=== PATIENT | male | born 1965 | race Caucasian/White ===

== ENCOUNTER 2020-08-07 09:32 | Outpatient (REF) | payer BC, SELFPAY ==
[2020-08-07 09:56] LABS: COVID-19 Test Negative (Negative)
== END 2020-08-07 09:33 | disposition home or self-care (01) ==
LOC: HO.LAB 09:32
PROVIDERS: PCP Physician Assistant; Visit Provider Internal Medicine
DX: Z20.828 Contact with and (suspected) exposure to other viral communicable diseases (principal)
CPT/HCPCS: 87635

== ENCOUNTER 2020-10-06 18:13 | Emergency (ER) | payer BC, SELFPAY ==
--- NOTE | 2020-10-06 18:29 | ED.ABDPAIN ---
HPI - Abdominal Pain General Chief Complaint: Abdominal Pain Stated Complaint: chest pain Time Seen by Provider: 10/06/20 18:18 Source: patient Mode of arrival: ambulatory Limitations: no limitations History of Present Illness HPI narrative: Patient chronic alcoholic chronic of right upper abdominal pain seen staff design engineer and house calls nurse practitioner in the past for last few days been getting worse no relation to the food patient feels nauseated no vomiting no diarrhea does have some blood in the stool off and on which is also going on for long time patient denied any shortness of breath no abdominal distention no fever or chills no cough no back pain or radiation of pain to the back no urinary symptoms Related Data Home Medications Medication Instructions Recorded Confirmed amlodipine 1 tab PO DAILY 08/27/20 08/27/20 aspirin 1 tab PO DAILY 08/27/20 08/27/20 atorvastatin 1 tab PO DAILY 08/27/20 08/27/20 clopidogrel 1 tab PO DAILY 08/27/20 08/27/20 dicyclomine mg PO 08/27/20 hydroxyzine HCl 1 tab PO TID 08/27/20 08/27/20 lorazepam 1 tab PO BID PRN 08/27/20 08/27/20 metoprolol tartrate 1 tab PO BID 08/27/20 08/27/20 omeprazole 1 cap PO DAILY 08/27/20 08/27/20 Previous Rx's Medication Instructions Recorded clonazepam 1 mg tablet 1 mg PO DAILY PRN 30 Days #30 tab 08/27/20 buspirone 10 mg tablet 10 mg PO BID #60 tab 08/31/20 clonidine HCl 0.2 mg tablet 0.2 mg PO TID #90 tab 09/13/20 lamotrigine 200 mg tablet 200 mg PO BEDTIME #90 tab 09/15/20 sucralfate [Carafate] 1 g PO BID #60 tab 10/06/20 Allergies Allergy/AdvReac Type Severity Reaction Status Date / Time diphenhydramine Allergy Unknown Unknown Verified 09/03/20 10:50 [From Dari] Review of Systems Review of Systems REVIEW OF SYSTEMS: Pertinent positives and negatives are stated above in the history. GEN: no fevers, chills, fatigue HEENT: no nasal congestion, sore throat, ear pain NEURO: no headache, dizziness, focal weakness PULM: no cough, shortness of breath CV: no chest pain, palpitations, LE edema ABD: no vomiting, diarrhea : no dysuria, urgency, frequency SKIN: no rash ROS otherwise negative x 10 Physical Exam Vital Signs: Vital Signs: Last Vital Signs Temp 98.3 F 10/06/20 20:05 Pulse 69 10/06/20 20:05 Resp 95 H 10/06/20 20:05 BP 154/90 H 10/06/20 20:05 Pulse Ox 95 10/06/20 20:05 Body Mass Index 26.6 Appearance: Alert. Oriented X3. No acute distress. Eyes: Pupils equal, round and reactive to light. ENT: Pharynx normal. Neck: Normal inspection. Neck supple. CVS: Normal heart rate and rhythm. Pulses normal. Respiratory: No respiratory distress. Breath sounds normal. Abdomen: Soft and tender right upper quadrant to deep palpation no rebound tenderness or guarding bowel sounds are present no abdominal distension Skin: Skin warm and dry. Normal skin color. Normal skin turgor. Extremities: No lower extremity edema. Good range of movement Neuro: Oriented X 3. No motor deficit. No sensory deficit. Course Course Course Narrative: Patient chronic alcoholic with chronic right upper abdominal and epigastric pain previous ultrasound in 01/12 showed fatty liver patient workup is negative his normal LFTs patient advised to stop drinking and continue Prilosec will add sucralfate for chronic gastritis MDM - Abdominal Pain Medical Records Attestation: I reviewed the patient's medical records. Lab Data Attestation: I reviewed the patient's lab results. Result diagrams: 10/06/20 18:41 10/06/20 18:41 Labs: Lab Results 10/06/20 10/06/20 10/06/20 Range/Units 18:41 18:41 18:41 WBC 6.6 (4.8-10.8) X10*3/uL RBC 4.44 L (4.60-5.80) X10*6/uL Hgb 14.6 (14.0-18.0) g/dl Hct 41.8 L (42-52) % MCV 94.1 (80-98) fL MCH 32.9 (27.0-33.0) pg MCHC 34.9 (31.0-36.0) g/dl RDW 12.2 (11.0-16.0) % Plt Count 247 (160-400) X10*3/uL MPV 8.9 L (9.4-12.4) fL Immature Gran % (Auto) 0.2 (0.0-0.4) % Neut % (Auto) 57.0 (45-73) % Lymph % (Auto) 29.2 (20-40) % [place] % (Auto) 9.3 (2-11) % Eos % (Auto) 3.5 (0-4) % Baso % (Auto) 0.8 (0-2) % Lymph # (Auto) 1.9 (1.2-4.9) X10*3/uL [place] # (Auto) 0.6 (0.1-1.2) X10*3/uL Eos # (Auto) 0.2 (0.0-0.4) X10*3/uL Baso # (Auto) 0.1 (0.0-0.2) X10*3/uL Abs Immat Gran (auto) 0.01 (0.00-0.03) X10*3/uL Absolute Neuts (auto) 3.7 (2.0-8.3) X10*3/uL Absolute Nucleated RBC 0.000 (0.0-0.012) X10*3/uL Nucleated RBC % (auto) 0.0 (0.0-0.2) /100WBC PT 11.7 (10.8-13.0) SEC INR 1.0 (0.9-1.1) Sodium 142 (135-145) mmol/L Potassium 4.0 (3.3-5.1) mmol/l Chloride 108 (96-108) mmol/L Carbon Dioxide 20 L (22-29) mmol/L Anion Gap 18 (12-20) BUN 13 (9-16) mg/dL Creatinine 0.82 (0.5-1.4) mg/dL Estim Creat Clear Calc 99.6 Estimated GFR > 60 Random Glucose 114 (60-115) mg/dL Calcium 8.3 L (8.4-10.2) mg/dL Total Bilirubin 0.3 (0.0-1.0) mg/dL Direct Bilirubin < 0.2 (0.0-0.5) mg/dL AST 37 (5-37) U/L ALT 34 (0-40) U/L Alkaline Phosphatase 79 (39-117) U/L Troponin I High Sens (<3.5-35.0) ng/L Total Protein 7.5 (6.5-8.0) g/dL Albumin 4.4 (3.5-5.0) g/dL Lipase 46 (8-78) U/L 10/06/20 Range/Units 18:41 WBC (4.8-10.8) X10*3/uL RBC (4.60-5.80) X10*6/uL Hgb (14.0-18.0) g/dl Hct (42-52) % MCV (80-98) fL MCH (27.0-33.0) pg MCHC (31.0-36.0) g/dl RDW (11.0-16.0) % Plt Count (160-400) X10*3/uL MPV (9.4-12.4) fL Immature Gran % (Auto) (0.0-0.4) % Neut % (Auto) (45-73) % Lymph % (Auto) (20-40) % [place] % (Auto) (2-11) % Eos % (Auto) (0-4) % Baso % (Auto) (0-2) % Lymph # (Auto) (1.2-4.9) X10*3/uL [place] # (Auto) (0.1-1.2) X10*3/uL Eos # (Auto) (0.0-0.4) X10*3/uL Baso # (Auto) (0.0-0.2) X10*3/uL Abs Immat Gran (auto) (0.00-0.03) X10*3/uL Absolute Neuts (auto) (2.0-8.3) X10*3/uL Absolute Nucleated RBC (0.0-0.012) X10*3/uL Nucleated RBC % (auto) (0.0-0.2) /100WBC PT (10.8-13.0) SEC INR (0.9-1.1) Sodium (135-145) mmol/L Potassium (3.3-5.1) mmol/l Chloride (96-108) mmol/L Carbon Dioxide (22-29) mmol/L Anion Gap (12-20) BUN (9-16) mg/dL Creatinine (0.5-1.4) mg/dL Estim Creat Clear Calc Estimated GFR Random Glucose (60-115) mg/dL Calcium (8.4-10.2) mg/dL Total Bilirubin (0.0-1.0) mg/dL Direct Bilirubin (0.0-0.5) mg/dL AST (5-37) U/L ALT (0-40) U/L Alkaline Phosphatase (39-117) U/L Troponin I High Sens 3.8 (<3.5-35.0) ng/L Total Protein (6.5-8.0) g/dL Albumin (3.5-5.0) g/dL Lipase (8-78) U/L ECG Data Attestation: I personally reviewed and interpreted this ECG as follows: Interpretation: Normal sinus rhythm with ventricular rate of 75 beats per minute normal axis normal intervals no acute ST T wave changes. Impression normal EKG Discharge Plan Discharge Clinical Impression: Alcoholic gastritis Qualifiers: Chronicity: chronic Gastritis bleeding: without bleeding Qualified Code(s): K29.20 - Alcoholic gastritis without bleeding Patient Disposition: Home, Self-Care Instructions: Gastritis (ED) Additional Instructions: Stop drinking alcohol. Take medications as prescribed. Follow-up with staff design engineer Prescriptions: New sucralfate [Carafate] 1 gram tablet 1 g PO BID Qty: 60 RF: 0 No Action clonazepam 1 mg tablet 1 mg PO DAILY PRN (Reason: anxiety) 30 Days Qty: 30 RF: 1 buspirone 10 mg tablet 10 mg PO BID Qty: 60 RF: 2 clonidine HCl 0.2 mg tablet 0.2 mg PO TID Qty: 90 RF: 0 lamotrigine 200 mg tablet 200 mg PO BEDTIME Qty: 90 RF: 0 atorvastatin 80 mg tablet 1 tab PO DAILY RF: 0 hydroxyzine HCl 50 mg tablet 1 tab PO TID RF: 0 clopidogrel 75 mg tablet 1 tab PO DAILY RF: 0 amlodipine 5 mg tablet 1 tab PO DAILY RF: 0 omeprazole 40 mg capsule,delayed release(DR/EC) 1 cap PO DAILY RF: 0 aspirin 81 mg tablet,delayed release (DR/EC) 1 tab PO DAILY RF: 0 lorazepam 0.5 mg tablet 1 tab PO BID PRN (Reason: Anxiety) RF: 0 dicyclomine 20 mg tablet PO RF: 0 metoprolol tartrate 25 mg tablet 1 tab PO BID RF: 0 Interventions: ED Discharge Assessment Last Done: 10/06/20 20:04 [facility] Past Medical History Medical History Alcohol abuse Anxiety CAD (coronary artery disease) Dyslipidemia Hiatal hernia Hypertension Insomnia PUD (peptic ulcer disease) STEMI (ST elevation myocardial infarction) Surgical History H/O heart artery stent History of esophagogastroduodenoscopy (EGD) Hx of colonoscopy Family History Family History Father Medical history unknown Mother No problems noted. Social History Social History Alcohol intake: current Alcohol intake frequency: 3 or more drinks per day Alcohol type: beer Smoking Status: Never smoker Smoked in Last 30 Days: No Use of substances other than those prescribed or required for medical reasons: No Advance Directives: No Advance Directives Information Provided: No
[2020-10-06 18:30] VITALS: BP 137/84; PULSE 94; RESP 18; TEMP 37.2; O2SAT 96; BMI 26.6
--- NOTE | 2020-10-06 18:31 | ECG_ITS ---
Test Reason : ABDOMINAL PAIN Blood Pressure : / mmHG Vent. Rate : 075 BPM Atrial Rate : 075 BPM P-R Int : 150 ms QRS Dur : 096 ms QT Int : 390 ms P-R-T Axes : 017 013 -01 degrees QTc Int : 435 ms Normal sinus rhythm Normal ECG When compared with ECG of 19-MAY-2020 03:24, No significant change was found Referred By: Robby Linton Electronically Signed By:MARLYS GALLEGO
--- NOTE | 2020-10-06 18:31 | XR_ITS ---
EXAMINATION: XR CHEST CLINICAL INFORMATION: Chest pain. COMPARISON: Most recent chest radiograph dated 05/19/2020. TECHNIQUE: Frontal view of the chest was obtained. FINDINGS: The lungs are clear. The cardiomediastinal silhouette is normal in size. There is no pleural effusion or pneumothorax. No acute osseous abnormality. XR/XR chest 1V IMPRESSION: No acute cardiopulmonary findings.
[2020-10-06] MEDS: 0.9 % Sodium Chloride 1,000 ML 999 ML IVCONT (18:45)
[2020-10-06] MEDS: ondansetron HCL 4 MG/2 ML VIAL IVPUSH (18:45)
[2020-10-06] MEDS: Morphine Sulfate 4 MG/ML CARTRIDGE IVPUSH (18:45)
[2020-10-06 18:47] LABS: Basophils Absolute Auto 0.1 X10*3/uL (0.0-0.2); Basophils Percent Auto 0.8 % (0-2); Eosinophils Absolute Auto 0.2 X10*3/uL (0.0-0.4); Eosinophils Percent Auto 3.5 % (0-4); Hematocrit 41.8 % (42-52); Hemoglobin 14.6 g/dl (14.0-18.0); Imm Gran Abs Auto 0.01 X10*3/uL (0.00-0.03); Imm Gran Pct Auto 0.2 % (0.0-0.4); Lymphocytes Absolute Auto 1.9 X10*3/uL (1.2-4.9); Lymphocytes Percent Auto 29.2 % (20-40); MANUAL DIFF FLAG NO; Mean Corpuscular HGB Conc 34.9 g/dl (31.0-36.0); Mean Corpuscular Hemoglobin 32.9 pg (27.0-33.0); Mean Corpuscular Volume 94.1 fL (80-98); Mean Platelet Volume 8.9 fL (9.4-12.4); Monocytes Absolute Auto 0.6 X10*3/uL (0.1-1.2); Monocytes Percent Auto 9.3 % (2-11); Neutrophils Absolute Auto 3.7 X10*3/uL (2.0-8.3); Platelet Count 247 X10*3/uL (160-400); Red Blood Count 4.44 X10*6/uL (4.60-5.80); Red Cell Distribution Width 12.2 % (11.0-16.0); White Blood Count 6.6 X10*3/uL (4.8-10.8)
[2020-10-06 19:02] LABS: Prothrombin Time 11.7 SEC (10.8-13.0)
[2020-10-06 19:24] LABS: Troponin-I High Sensitivity 3.8 ng/L (<3.5-35.0)
[2020-10-06 19:27] LABS: Alanine Aminotransferase 34 U/L (0-40); Albumin Level 4.4 g/dL (3.5-5.0); Alkaline Phosphatase 79 U/L (39-117); Anion Gap 18 (12-20); Aspartate Amino Transferase 37 U/L (5-37); Bilirubin Direct < 0.2 mg/dL (0.0-0.5); Bilirubin Total 0.3 mg/dL (0.0-1.0); Blood Urea Nitrogen 13 mg/dL (9-16); Calcium 8.3 mg/dL (8.4-10.2); Carbon Dioxide 20 mmol/L (22-29); Chloride 108 mmol/L (96-108); Creatinine Clr Calc Pharmacy 99.6; Estimated Glomerular Filt Rate > 60; Glucose Random 114 mg/dL (60-115); Lipase 46 U/L (8-78); Sodium 142 mmol/L (135-145); Total Protein 7.5 g/dL (6.5-8.0)
[2020-10-06 20:05] VITALS: BP 154/90; PULSE 69; RESP 95; TEMP 36.8; O2SAT 95
[2020-10-06] MEDS: LORazepam 1 MG TABLET 2 MG PO (20:17)
== END 2020-10-06 20:20 | disposition home or self-care (01) ==
PROVIDERS: Emergency Provider Internal Medicine; PCP Physician Assistant
DX: K29.20 Alcoholic gastritis without bleeding (principal); F10.10 Alcohol abuse, uncomplicated; I10 Essential (primary) hypertension
CPT/HCPCS: 36415; 71045; 80048; 80076; 83690; 84484; 85025; 85610; 93005; 96361; 96374; 96375; 99284; J2270; J2405

== ENCOUNTER 2020-10-31 07:38 | Day surgery (SDC) | payer BC, SELFPAY ==
[2020-08-27 11:18] VITALS: BMI 25.5
[2020-10-23 15:49] VITALS: BMI 26.6
--- NOTE | 2020-10-30 09:55 | HO.ANESPROP2 ---
Documented by User: Kisha Frederick 10/30/20 10:10 HPI - Anesthesia Eval Consult details Narrative: 55yo M for Colonoscopy significant ETOH PMFSH Past Medical History Medical History Alcohol abuse Anxiety CAD (coronary artery disease) Dyslipidemia Hiatal hernia Hypertension Insomnia PUD (peptic ulcer disease) STEMI (ST elevation myocardial infarction) Family History Family History Father Medical history unknown Mother No problems noted. Surgical History Surgical History H/O heart artery stent History of esophagogastroduodenoscopy (EGD) Hx of colonoscopy Social History Social History Are you a primary rn primary care to a significant other at home: No Alcohol intake: current Alcohol intake frequency: 3 or more drinks per day Alcohol type: beer Smoking Status: Former smoker Smoking Quit Date: > 10 yrs ago Use of substances other than those prescribed or required for medical reasons: No Advance Directives: No Advance Directives Information Provided: No Advance Directives on File: No Recently lost weight without trying: No Meds Allergies Allergy/AdvReac Type Severity Reaction Status Date / Time diphenhydramine Allergy Unknown Unknown Verified 09/03/20 10:50 [facility] Home Medications Medication Instructions Recorded Confirmed Type amlodipine 1 tab PO DAILY 08/27/20 08/27/20 History aspirin 1 tab PO DAILY 08/27/20 08/27/20 History dicyclomine mg PO 08/27/20 History hydroxyzine HCl 1 tab PO TID 08/27/20 08/27/20 History lorazepam 1 tab PO BID PRN 08/27/20 08/27/20 History metoprolol tartrate 1 tab PO BID 08/27/20 08/27/20 History Exam Exam Date and Time: October 30, 2020 0955 Height,Weight and Vital Signs: Height 5 ft 8 in Weight 79.379 kg Pertinent Lab Results Pertinent Lab Results: Laboratory Tests 10/06/20 10/06/20 18:41 18:41 WBC 6.6 Hgb 14.6 Hct 41.8 L Plt Count 247 Sodium 142 Potassium 4.0 Chloride 108 Carbon Dioxide 20 L BUN 13 Creatinine 0.82 Narrative Narrative: EKG 04/2020: NSR @ 77, Inferior infarct, old ECHO 05/2020: EF 60-65%, mild thickening of anterior mitral leaflet, no change from prev Assessment and Plan Assessment Anesthesia Assessment: Chart Reviewed Documented by User: Vicenta Vogt 10/31/20 08:02 [facility] Past Medical History Medical History Alcohol abuse Anxiety CAD (coronary artery disease) Dyslipidemia Hiatal hernia Hypertension Insomnia PUD (peptic ulcer disease) STEMI (ST elevation myocardial infarction) Family History Family History Father Medical history unknown Mother No problems noted. Surgical History Surgical History H/O heart artery stent History of esophagogastroduodenoscopy (EGD) Hx of colonoscopy Social History Social History Are you a primary rn primary care to a significant other at home: No Alcohol intake: current Alcohol intake frequency: 3 or more drinks per day Alcohol type: beer Smoking Status: Former smoker Smoking Quit Date: > 10 yrs ago Use of substances other than those prescribed or required for medical reasons: No Advance Directives: No Advance Directives Information Provided: No Advance Directives on File: No Recently lost weight without trying: No Meds Allergies Allergy/AdvReac Type Severity Reaction Status Date / Time diphenhydramine Allergy Unknown Unknown Verified 09/03/20 10:50 [From Dari] Home Medications Medication Instructions Recorded Confirmed Type amlodipine 1 tab PO DAILY 08/27/20 08/27/20 History aspirin 1 tab PO DAILY 08/27/20 08/27/20 History dicyclomine mg PO 08/27/20 History hydroxyzine HCl 1 tab PO TID 08/27/20 08/27/20 History lorazepam 1 tab PO BID PRN 08/27/20 08/27/20 History metoprolol tartrate 1 tab PO BID 08/27/20 08/27/20 History Exam Airway Mallampati Class: II (Partial cap top left) TM Dist: >3cm Neck ROM: Full Heart: RRR Lungs: CTA BL Assessment and Plan Assessment Anesthesia Assessment: Anesthesia Plan Discussed and Chart Reviewed Final Anesthetic Review NPO: Yes (Sips of water) ASA Class: III Final Preanesthetic Review: Meds/Allgs Chart Reviewed and Consent Obtained/Reviewed Patient Risk: Intermediate Procedure Risk: Intermediate Anesthetic Plan Anesthetic Plan: MAC: Disposition: Standard PACU
[2020-10-31 08:01] VITALS: BP 141/91; PULSE 97; RESP 16; TEMP 36.6; O2SAT 96
[2020-10-31] MEDS: Lactated Ringers 1,000 ML 50 ML IVCONT (08:22)
[2020-10-31 08:29] LABS: Prothrombin Time 11.9 SEC (10.8-13.0)
[2020-10-31 09:19] VITALS: BP 112/69; PULSE 82; RESP 12; TEMP 37.7; O2SAT 94
--- NOTE | 2020-10-31 09:21 | PM.OP ---
Brief Operative Note Date of Service: 10/31/20 Pre-op diagnosis: Screening Post-op diagnosis: other (Colon polyp, Diverticulosis, Internal hemorrhoids) Procedure: Colonoscopy to cecum and TI with biopsy and removal of polyp Surgeon: Jeremiah Bowen Anesthesia: MAC Estimated blood loss (mL): 3.0 Pathology: other (A. Polyp at 50cm) Condition: stable Disposition: PACU
[2020-10-31 09:34] VITALS: BP 107/77; PULSE 81; RESP 18; TEMP 36.8; O2SAT 96
[2020-10-31 09:47] VITALS: BP 120/79; PULSE 81; RESP 18; O2SAT 97
--- NOTE | 2020-10-31 10:09 | OP_ITS ---
SURGEON: Jeremiah Bowen MD INDICATIONS: The patient presents for evaluation of colorectal cancer screening. Full consent has been obtained from him for this, including risks of bleeding and perforation. PREOPERATIVE DIAGNOSIS: Colorectal cancer screening. POSTOPERATIVE DIAGNOSIS: PROCEDURE PERFORMED: ESTIMATED BLOOD LOSS: COMPLICATIONS: ANESTHESIA: Medication used, monitored anesthesia care. ASSISTANTS: SPECIMENS: POSTOPERATIVE DIAGNOSES: Colorectal cancer screening, small colon polyp, sigmoid diverticulosis, internal hemorrhoids. PROCEDURES PERFORMED: Colonoscopy to cecum and terminal ileum with biopsy and removal of polyp. DESCRIPTION OF PROCEDURE: The patient was placed in the left lateral decubitus position. The digital rectal exam revealed no abnormalities. The Olympus video pediatric colonoscope was entered into the rectum and advanced easily to the cecum. Once in the cecum, I did identify normal-appearing cecal pouch with appendiceal orifice and a normal-appearing ileocecal valve. The terminal ileum was cannulated and appeared normal. The scope withdrawn back in the colon. The entire cecum and ileocecal valve appeared normal. The scope was slowly withdrawn assessing all mucosal surfaces carefully. Preparation was excellent. At 50 cm, there was a flat approximately 4 mm polyp, which was biopsied and completely removed with cold biopsy forceps. I did not visualize any other polyps, colitis, or angiodysplasia. There was mild amount of sigmoid diverticulosis. In the rectum, scope was retroflexed visualizing internal hemorrhoids, but no other pathology. The rectal mucosa appeared normal. Scope was straightened and withdrawn from the patient. He tolerated the procedure well and was returned to the recovery area in stable condition. IMPRESSION: 1. Small colon polyp, status post biopsy removal. 2. Diverticulosis. 3. Internal hemorrhoids. PLAN: The results of the biopsies will be checked. If the polyp is a tubular adenoma, I would recommend a followup colonoscopy in 5 years. If it is only hyperplastic, I would recommend a followup colonoscopy in 10 years. He was again advised to avoid alcohol completely. He will otherwise see me on a p.r.n. basis. MD KRISSY Kessler/WAYNE / [phone]
--- NOTE | 2020-10-31 10:17 | HO.POSTANES ---
Post Anesthesia Evaluation Post Anesthesia Evaluation Vital Signs: Vital Signs Temp Pulse Resp BP Pulse Ox 10/31/20 09:47 98.3 F 81 18 120/79 97 10/31/20 09:34 98.3 F 81 18 107/77 96 10/31/20 09:19 100 F 82 12 112/69 94 10/31/20 08:01 97.8 F 97 16 141/91 H 96 Anesthesia: Monitored Mental Status: Awake Pain Control: Satisfactory Nausea/Vomiting: None Hydration: Adequate Anesthesia-Related Issues: No Anes. Related Issues
== END 2020-10-31 10:14 | disposition home or self-care (01) ==
PROVIDERS: PCP Physician Assistant; Visit Provider Internal Medicine
PROC: 0DJD8ZZ Inspection of Lower Intestinal Tract, Via Natural or Artificial Opening Endoscopic (ICD-10-PCS; CPT 45378; principal; 2020-10-31 08:30)
DX: Z12.11 Encounter for screening for malignant neoplasm of colon (principal); D12.5 Benign neoplasm of sigmoid colon; K57.30 Diverticulosis of large intestine without perforation or abscess without bleeding; K64.8 Other hemorrhoids; I25.10 Atherosclerotic heart disease of native coronary artery without angina pectoris; I10 Essential (primary) hypertension; F10.10 Alcohol abuse, uncomplicated; K27.9 Peptic ulcer, site unspecified, unspecified as acute or chronic, without hemorrhage or perforation; Z87.891 Personal history of nicotine dependence; Z79.82 Long term (current) use of aspirin; Z79.899 Other long term (current) drug therapy
CPT/HCPCS: 45380; 36415; 85610; 88305; J2250

== ENCOUNTER 2020-11-12 09:27 | Outpatient (REF) | payer BC, SELFPAY | END 2020-11-12 09:28 | disposition home or self-care (01) | LOC: HO.LAB 09:27 | PROVIDERS: Visit Provider Internal Medicine | DX: Z20.822 Contact with and (suspected) exposure to COVID-19 (principal) | CPT/HCPCS: 36415; C9803; U0003 ==

== ENCOUNTER 2021-02-12 13:20 | Emergency (ER) | payer BC, SELFPAY ==
--- NOTE | ~2021-02-12 | CT_ITS ---
EXAMINATION: CT ABDOMEN AND PELVIS WITH CONTRAST CLINICAL INFORMATION: Weight loss upper abdominal pain COMPARISON: Abdominal ultrasound performed same day. Prior CT September 2016. TECHNIQUE: Multidetector volumetric images were obtained from the superior aspect of the liver through the pubic symphysis following administration 85 mL of Omnipaque 350 intravenous contrast. Sagittal and coronal reformatted images were obtained on the technologist's workstation. Oral contrast: No This CT examination was performed using dose optimization techniques as appropriate, variously including the following: *Automated exposure control *Adjustment of mA and/or kV according to patient size (this includes techniques or standardized protocols for targeted exams where dose is matched to indication/reason for exam; i.e. extremities or head) *Use of iterative reconstruction technique DLP: 527 mGy-cm FINDINGS: LUNG BASES: The visualized lung bases are unremarkable. LIVER, GALLBLADDER, AND BILIARY TREE: Decreased attenuation in the liver mild compatible with mild steatosis unchanged. No intrahepatic or extrahepatic biliary dilatation. The gallbladder is unremarkable with no evidence of radiopaque gallstones, gallbladder wall thickening, or obvious pericholecystic inflammatory changes. PANCREAS: Unremarkable. SPLEEN: Unremarkable. ADRENAL GLANDS: Unremarkable. KIDNEYS AND URETERS: 1.5 cm low-density lesion in the lower pole of the right kidney in the cortex posteriorly unchanged compatible simple cyst. BLADDER: Unremarkable. GASTROINTESTINAL TRACT: The small and large bowel are unremarkable. The appendix is unremarkable. ABDOMINAL WALL: No significant hernia is appreciated. LYMPH NODES: Normal. VASCULAR: Mild scattered arterial calcification similar to prior. PELVIC VISCERA: Unremarkable. OSSEOUS STRUCTURES: Unremarkable. CT/CT abdomen pelvis w con IMPRESSION: No acute abnormality. Stable mild hepatic steatosis. Benign simple cyst right kidney without change.. Mild calcific atherosclerotic disease.
--- NOTE | ~2021-02-12 | XR_ITS ---
EXAMINATION: XR CHEST CLINICAL INFORMATION: Right lower chest pain. COMPARISON: Most recent chest radiograph dated 10/06/2020. TECHNIQUE: Frontal view of the chest was obtained. FINDINGS: The lungs are clear. The cardiomediastinal silhouette is normal in size. There is no pleural effusion or pneumothorax. No acute osseous abnormality. XR/XR chest 1V IMPRESSION: No acute cardiopulmonary findings.
--- NOTE | ~2021-02-12 | US_ITS ---
EXAMINATION: US ABDOMEN LIMITED CLINICAL INFORMATION: Epigastric and right upper quadrant pain. COMPARISON: Ultrasound abdomen limited 01/11/2020 and ultrasound abdomen 08/31/2019 TECHNIQUE: Real-time imaging of the right upper quadrant abdominal viscera. FINDINGS: PANCREAS: The pancreas is normal in size and echogenicity. There is no pancreatic ductal distention or retroperitoneal effusion. LIVER: The liver is within normal size and smooth in contour. There is increased hepatic parenchymal echogenicity consistent with hepatic steatosis. There is no focal hepatic parenchymal lesion. No intrahepatic biliary ductal dilatation. Doppler shows portal flow towards the liver. GALLBLADDER: The patient is tender in the region of the gallbladder. The gallbladder is normal in caliber and shows no stone or sludge or wall thickening. There is no pericholecystic fluid. COMMON BILE DUCT: Borderline enlargement 0.7 cm. No visible ductal calculus. RIGHT KIDNEY: Right kidney measures 11.3 cm in length. There is a nonobstructing calculus around 3 mm interpolar region as noted on prior studies. There is no hydronephrosis or caliectasis. Normal renal parenchymal thickness and echogenicity. FREE FLUID: None. US/US abdomen limited IMPRESSION: 1. No gallstones or gallbladder wall thickening. 2. Common duct 7 mm, borderline enlarged. No intrahepatic ductal dilatation. No visible ductal calculus. 3. Diffuse hepatic steatosis. 4. Nonobstructing right renal calculus similar to prior imaging. No right hydronephrosis.
[2021-02-12 13:53] VITALS: BP 176/111; PULSE 80; RESP 20; TEMP 37.3; O2SAT 97; BMI 26.6
--- NOTE | 2021-02-12 14:04 | ECG_ITS ---
Test Reason : ABDOMINAL PAIN Blood Pressure : / mmHG Vent. Rate : 073 BPM Atrial Rate : 073 BPM P-R Int : 144 ms QRS Dur : 090 ms QT Int : 406 ms P-R-T Axes : 014 -03 -05 degrees QTc Int : 447 ms Normal sinus rhythm Cannot rule out inferior infarct Abnormal ECG When compared with ECG of 06-OCT-2020 19:00, Cannot rule out inferior infarct Referred By: Alessandra Banks Electronically Signed By:Mani Negron
--- NOTE | 2021-02-12 14:05 | ED.GENADULT ---
HPI - General Adult General Chief complaint: Abdominal Pain <BARRINGTON Cruz - Last Filed: 02/12/21 14:07> Stated complaint: RUQ PAIN <BARRINGTON Cruz - Last Filed: 02/12/21 14:07> Time Seen by Provider: 02/12/21 14:04 <BARRINGTON Cruz - Last Filed: 02/12/21 14:07> Source: patient <Lacy Mata DO - Last Filed: 02/12/21 18:21> Mode of arrival: ambulatory <Lacy Mata DO - Last Filed: 02/12/21 18:21> Limitations: no limitations <Lacy Mata DO - Last Filed: 02/12/21 18:21> History of Present Illness HPI narrative: 55 yo male with chronic upper abdominal pain and ETOH gastritis, drinks daily last drink last night, had one bloody stool this AM, c/o pain x 1 month with distention and weight loss <Lacy Mata DO - Last Filed: 02/12/21 18:21> MD complaint: abdominal pain <Lacy Mata DO - Last Filed: 02/12/21 18:21> Onset (ago): month(s) (1) <Lacy Mata DO - Last Filed: 02/12/21 18:21> Location: abdomen <Lacy Mata DO - Last Filed: 02/12/21 18:21> Severity: moderate <Lacy Mata DO - Last Filed: 02/12/21 18:21> Quality: dull <Lacy Mata DO - Last Filed: 02/12/21 18:21> Pain Consistency: intermittent <Lacy Mata DO - Last Filed: 02/12/21 18:21> Relieving factors: none <Lacy Mata DO - Last Filed: 02/12/21 18:21> Exacerbating factors: none <Lacy Mata DO - Last Filed: 02/12/21 18:21> Associated symptoms: loss of appetite, malaise and other (one episode of brb per rectum this AM) <Lacy Mata DO - Last Filed: 02/12/21 18:21> Treatments prior to arrival: none <Lacy Mata DO - Last Filed: 02/12/21 18:21> Related Data Home medications: Home Medications Medication Instructions Recorded Confirmed amlodipine 1 tab PO DAILY 08/27/20 01/11/21 dicyclomine mg PO 08/27/20 01/11/21 hydroxyzine HCl 1 tab PO TID 08/27/20 01/11/21 lorazepam 1 tab PO BID PRN 08/27/20 01/11/21 Previous Rx's Medication Instructions Recorded sucralfate [Carafate] 1 g PO BID #60 tab 10/06/20 atorvastatin 80 mg tablet 80 mg PO DAILY #30 tab 10/11/20 omeprazole 40 mg capsule,delayed 40 mg PO DAILY #90 cap 10/14/20 release azithromycin 250 mg tablet 250 mg PO DAILY 5 Days #6 tab 11/12/20 dextromethorphan-guaifenesin 30 1 tab PO Q12H PRN 10 Days #20 tab 11/12/20 mg-600 mg tablet extended oouodol02 hr metoprolol tartrate 25 mg tablet 12.5 mg PO BID #60 tab 12/04/20 buspirone 10 mg tablet 10 mg PO BID #60 tab 12/21/20 lamotrigine 200 mg tablet 200 mg PO BEDTIME #90 tab 12/26/20 clonazepam 1 mg tablet 1 mg PO DAILY 30 Days #30 tab 12/27/20 clonidine HCl 0.2 mg tablet 0.2 mg PO TID #90 tab 12/27/20 aspirin 81 mg tablet,delayed 81 mg PO DAILY 90 Days #90 tab 01/09/21 release acetaminophen 300 mg-codeine 30 mg 1 tab PO Q8H 5 Days #15 tab 01/10/21 tablet naproxen 500 mg tablet 500 mg PO BID 7 Days #14 tab 01/10/21 ondansetron 4 mg PO Q8H PRN #20 tab 02/12/21 sucralfate [Carafate] 10 ml PO QID 7 Days #280 ml 02/12/21 <BARRINGTON Cruz - Last Filed: 02/12/21 14:07> Allergies/adverse reactions: Allergies Allergy/AdvReac Type Severity Reaction Status Date / Time diphenhydramine Allergy Unknown Unknown Verified 01/11/21 16:38 [From [facility]] <BARRINGTON Cruz - Last Filed: 02/12/21 14:07> Review of Systems Review of Systems: Constitutional : No Weight loss, No Fever, No Chills ENT/Mouth : No sore throat, No Rhinorrhea Eyes: No Swelling, No Redness Cardiovascular : No Chest Pain, No SOB, NoEdema Respiratory : No Cough, No Sputum, No Wheezing Gastrointestinal : Positive Nausea, no Vomiting, no Diarrhea, positive abdominal Pain, pos Hematochezia, No Melena Genitourinary : No Dysuria, No Urinary Frequency, No Hematuria, No Urgency Musculoskeletal : No joint pain, No Myalgias, No Joint Swelling Skin : No Skin Lesions, No rash Neuro : No Weakness, No Numbness, No Dizziness, No Headache Psych : No Anxiety/Panic, No Depression Heme/Lymph: No Bruising, No Lymphadenopathy Endocrine : No Polyuria, No Polydipsia All other systems reviewed and are negative. <Lacy Mata DO - Last Filed: 02/12/21 18:21> [facility] Past Medical History Attestation statement: The following information was validated with the patient. <Lacy Mata DO - Last Filed: 02/12/21 18:21> Medical History: Medical History Alcohol abuse Anxiety Bronchitis CAD (coronary artery disease) COVID-19 ruled out Dyslipidemia Hiatal hernia Hypertension Insomnia PUD (peptic ulcer disease) STEMI (ST elevation myocardial infarction) <BARRINGTON Cruz - Last Filed: 02/12/21 14:07> Surgical History: Surgical History H/O heart artery stent History of esophagogastroduodenoscopy (EGD) Hx of colonoscopy <BARRINGTON Cruz - Last Filed: 02/12/21 14:07> Family History Family History: Family History Father Medical history unknown Mother No problems noted. <BARRINGTON Cruz - Last Filed: 02/12/21 14:07> Social History Social History: Social History Alcohol intake: current Alcohol intake frequency: 3 or more drinks per day Alcohol type: beer Smoking Status: Current every day smoker Use of substances other than those prescribed or required for medical reasons: Unknown Advance Directives: No Advance Directives Information Provided: Yes <BARRINGTON Cruz - Last Filed: 02/12/21 14:07> Physical Exam Vital Signs: Vital Signs: Last Vital Signs Temp 99.2 F 02/12/21 13:53 Pulse 86 02/12/21 17:35 Resp 18 02/12/21 17:35 BP 154/87 H 02/12/21 17:35 Pulse Ox 100 02/12/21 17:35 Body Mass Index 26.6 <BARRINGTON Cruz - Last Filed: 02/12/21 14:07> Vital Signs: Last Vital Signs Temp 99.2 F 02/12/21 13:53 Pulse 86 02/12/21 17:35 Resp 18 02/12/21 17:35 BP 154/87 H 02/12/21 17:35 Pulse Ox 100 02/12/21 17:35 Body Mass Index 26.6 <Lacy Mata DO - Last Filed: 02/12/21 18:21> Appearance: Alert. Oriented X3. No acute distress. Anxious Eyes: Pupils equal, round and reactive to light. ENT: Pharynx normal. Neck: Normal inspection. Neck supple. CVS: Normal heart rate and rhythm. Pulses normal. Respiratory: No respiratory distress. Breath sounds normal. Abdomen: Soft and mild epigastric RUQ pain no rebound or guarding Skin: Skin warm and dry. Normal skin color. Normal skin turgor. Extremities: No lower extremity edema. No calf ttp Neuro: Oriented X 3. No motor deficit. No sensory deficit. Tremors <Lacy Mata DO - Last Filed: 02/12/21 18:21> Course Course Course Narrative: Rapid medical exam: 55 y/o male with history of daily ETOH abuse (6-8 beers), hx gastritis, fatty liver, hx colonic polys s/p removal, hx CAD s/p stent, anxiety who presents to ED from [facility] for evaluation of intermittent RUQ pain & nausea for the last 1 month. Also reports abdominal distention and bloody BM's today - BRBRPR x2. No dizziness or chest pain. No jaundice on exam. Not on anticoagluation. Will let lab workup, EKG, CXR and RUQ U/S for further assessment. Plan per provider in the Main ED. <BARRINGTON Cruz - Last Filed: 02/12/21 14:07> no further bleeding labs at baseline, CT scan negative stable for outpatient GI follow up <Lacy Mata DO - Last Filed: 02/12/21 18:21> Medical Decision Making MDM Narrative Medical decision making narrative: 55 yo male with ETOH, gastritis, anxiety here with upper abdominal pain RUQ in nature x 1 month worsening c/o weight loss, one episode of brb - will need labs, CT scan, H/H, start ativan, possible mass vs stable GIB <Lacy Mata DO - Last Filed: 02/12/21 18:21> Lab Data Result diagrams: : 02/12/21 14:56 02/12/21 14:56 <BARRINGTON Cruz - Last Filed: 02/12/21 14:07> Labs: Lab Results 02/12/21 02/12/21 02/12/21 Range/Units 14:56 14:56 14:56 WBC 6.0 (4.8-10.8) X10*3/uL RBC 5.02 (4.60-5.80) X10*6/uL Hgb 16.0 (14.0-18.0) g/dl Hct 46.5 (42-52) % MCV 92.6 (80-98) fL MCH 31.9 (27.0-33.0) pg MCHC 34.4 (31.0-36.0) g/dl RDW 11.9 (11.0-16.0) % Plt Count 227 (160-400) X10*3/uL MPV 8.8 L (9.4-12.4) fL Immature Gran % (Auto) 0.2 (0.0-0.4) % Neut % (Auto) 61.2 (45-73) % Lymph % (Auto) 26.1 (20-40) % [place] % (Auto) 9.2 (2-11) % Eos % (Auto) 2.5 (0-4) % Baso % (Auto) 0.8 (0-2) % Lymph # (Auto) 1.6 (1.2-4.9) X10*3/uL [place] # (Auto) 0.6 (0.1-1.2) X10*3/uL Eos # (Auto) 0.2 (0.0-0.4) X10*3/uL Baso # (Auto) 0.1 (0.0-0.2) X10*3/uL Abs Immat Gran (auto) 0.01 (0.00-0.03) X10*3/uL Absolute Neuts (auto) 3.7 (2.0-8.3) X10*3/uL Absolute Nucleated RBC 0.000 (0.0-0.012) X10*3/uL Nucleated RBC % (auto) 0.0 (0.0-0.2) /100WBC Hold Blue Top SEE NOTE Sodium 141 (135-145) mmol/L Potassium 4.1 (3.3-5.1) mmol/L Chloride 105 (96-108) mmol/L Carbon Dioxide 23 (22-29) mmol/L Anion Gap 17 (12-20) BUN 14 (9-16) mg/dL Creatinine 0.96 (0.5-1.4) mg/dL Estim Creat Clear Calc 82.2 Estimated GFR > 60 Random Glucose 98 (60-115) mg/dL Calcium 9.3 D (8.4-10.2) mg/dL Magnesium 2.5 (1.6-2.6) mg/dL Total Bilirubin 1.4 H (0.0-1.0) mg/dL Direct Bilirubin 0.4 (0.0-0.5) mg/dL AST 63 H (5-37) U/L ALT 63 H (0-40) U/L Alkaline Phosphatase 94 (39-117) U/L Troponin I High Sens (<3.5-35.0) ng/L Total Protein 7.9 (6.5-8.0) g/dL Albumin 4.9 (3.5-5.0) g/dL Lipase 26 (8-78) U/L Urine Color Urine Appearance Urine pH (5.0-8.0) Ur Specific [place] (1.005-1.025) Urine Protein (NEG-TRACE) MG/DL Urine Glucose (UA) (NEG) MG/DL Urine Ketones (NEG) MG/DL Urine Blood (NEG) Urine Nitrite (NEG) Ur Leukocyte Esterase (NEG) Urine Opiates Screen (Not Detect) Ur Barbiturates Screen (Not Detect) Ur Phencyclidine Scrn (Not Detect) Ur Amphetamines Screen (Not Detect) U Benzodiazepines Scrn (Not Detect) Urine Cocaine Screen (Not Detect) U Marijuana (THC) Screen (Not Detect) Ethyl Alcohol mg/dL 02/12/21 02/12/21 02/12/21 Range/Units 14:56 14:56 16:48 WBC (4.8-10.8) X10*3/uL RBC (4.60-5.80) X10*6/uL Hgb (14.0-18.0) g/dl Hct (42-52) % MCV (80-98) fL MCH (27.0-33.0) pg MCHC (31.0-36.0) g/dl RDW (11.0-16.0) % Plt Count (160-400) X10*3/uL MPV (9.4-12.4) fL Immature Gran % (Auto) (0.0-0.4) % Neut % (Auto) (45-73) % Lymph % (Auto) (20-40) % [place] % (Auto) (2-11) % Eos % (Auto) (0-4) % Baso % (Auto) (0-2) % Lymph # (Auto) (1.2-4.9) X10*3/uL [place] # (Auto) (0.1-1.2) X10*3/uL Eos # (Auto) (0.0-0.4) X10*3/uL Baso # (Auto) (0.0-0.2) X10*3/uL Abs Immat Gran (auto) (0.00-0.03) X10*3/uL Absolute Neuts (auto) (2.0-8.3) X10*3/uL Absolute Nucleated RBC (0.0-0.012) X10*3/uL Nucleated RBC % (auto) (0.0-0.2) /100WBC Hold Blue Top Sodium (135-145) mmol/L Potassium (3.3-5.1) mmol/L Chloride (96-108) mmol/L Carbon Dioxide (22-29) mmol/L Anion Gap (12-20) BUN (9-16) mg/dL Creatinine (0.5-1.4) mg/dL Estim Creat Clear Calc Estimated GFR Random Glucose (60-115) mg/dL Calcium (8.4-10.2) mg/dL Magnesium (1.6-2.6) mg/dL Total Bilirubin (0.0-1.0) mg/dL Direct Bilirubin (0.0-0.5) mg/dL AST (5-37) U/L ALT (0-40) U/L Alkaline Phosphatase (39-117) U/L Troponin I High Sens < 3.5 (<3.5-35.0) ng/L Total Protein (6.5-8.0) g/dL Albumin (3.5-5.0) g/dL Lipase (8-78) U/L Urine Color YELLOW Urine Appearance CLEAR Urine pH 6.0 (5.0-8.0) Ur Specific [place] 1.025 (1.005-1.025) Urine Protein TRACE (NEG-TRACE) MG/DL Urine Glucose (UA) NEG (NEG) MG/DL Urine Ketones NEG (NEG) MG/DL Urine Blood NEG (NEG) Urine Nitrite NEG (NEG) Ur Leukocyte Esterase NEG (NEG) Urine Opiates Screen (Not Detect) Ur Barbiturates Screen (Not Detect) Ur Phencyclidine Scrn (Not Detect) Ur Amphetamines Screen (Not Detect) U Benzodiazepines Scrn (Not Detect) Urine Cocaine Screen (Not Detect) U Marijuana (THC) Screen (Not Detect) Ethyl Alcohol < 10 mg/dL 02/12/21 Range/Units 16:48 WBC (4.8-10.8) X10*3/uL RBC (4.60-5.80) X10*6/uL Hgb (14.0-18.0) g/dl Hct (42-52) % MCV (80-98) fL MCH (27.0-33.0) pg MCHC (31.0-36.0) g/dl RDW (11.0-16.0) % Plt Count (160-400) X10*3/uL MPV (9.4-12.4) fL Immature Gran % (Auto) (0.0-0.4) % Neut % (Auto) (45-73) % Lymph % (Auto) (20-40) % [place] % (Auto) (2-11) % Eos % (Auto) (0-4) % Baso % (Auto) (0-2) % Lymph # (Auto) (1.2-4.9) X10*3/uL [place] # (Auto) (0.1-1.2) X10*3/uL Eos # (Auto) (0.0-0.4) X10*3/uL Baso # (Auto) (0.0-0.2) X10*3/uL Abs Immat Gran (auto) (0.00-0.03) X10*3/uL Absolute Neuts (auto) (2.0-8.3) X10*3/uL Absolute Nucleated RBC (0.0-0.012) X10*3/uL Nucleated RBC % (auto) (0.0-0.2) /100WBC Hold Blue Top Sodium (135-145) mmol/L Potassium (3.3-5.1) mmol/L Chloride (96-108) mmol/L Carbon Dioxide (22-29) mmol/L Anion Gap (12-20) BUN (9-16) mg/dL Creatinine (0.5-1.4) mg/dL Estim Creat Clear Calc Estimated GFR Random Glucose (60-115) mg/dL Calcium (8.4-10.2) mg/dL Magnesium (1.6-2.6) mg/dL Total Bilirubin (0.0-1.0) mg/dL Direct Bilirubin (0.0-0.5) mg/dL AST (5-37) U/L ALT (0-40) U/L Alkaline Phosphatase (39-117) U/L Troponin I High Sens (<3.5-35.0) ng/L Total Protein (6.5-8.0) g/dL Albumin (3.5-5.0) g/dL Lipase (8-78) U/L Urine Color Urine Appearance Urine pH (5.0-8.0) Ur Specific [place] (1.005-1.025) Urine Protein (NEG-TRACE) MG/DL Urine Glucose (UA) (NEG) MG/DL Urine Ketones (NEG) MG/DL Urine Blood (NEG) Urine Nitrite (NEG) Ur Leukocyte Esterase (NEG) Urine Opiates Screen Not Detected (Not Detect) Ur Barbiturates Screen Not Detected (Not Detect) Ur Phencyclidine Scrn Not Detected (Not Detect) Ur Amphetamines Screen Not Detected (Not Detect) U Benzodiazepines Scrn Not Detected (Not Detect) Urine Cocaine Screen Not Detected (Not Detect) U Marijuana (THC) Screen Not Detected (Not Detect) Ethyl Alcohol mg/dL <BARRINGTON Cruz - Last Filed: 02/12/21 14:07> Lab Results 02/12/21 02/12/21 02/12/21 Range/Units 14:56 14:56 14:56 WBC 6.0 (4.8-10.8) X10*3/uL RBC 5.02 (4.60-5.80) X10*6/uL Hgb 16.0 (14.0-18.0) g/dl Hct 46.5 (42-52) % MCV 92.6 (80-98) fL MCH 31.9 (27.0-33.0) pg MCHC 34.4 (31.0-36.0) g/dl RDW 11.9 (11.0-16.0) % Plt Count 227 (160-400) X10*3/uL MPV 8.8 L (9.4-12.4) fL Immature Gran % (Auto) 0.2 (0.0-0.4) % Neut % (Auto) 61.2 (45-73) % Lymph % (Auto) 26.1 (20-40) % [place] % (Auto) 9.2 (2-11) % Eos % (Auto) 2.5 (0-4) % Baso % (Auto) 0.8 (0-2) % Lymph # (Auto) 1.6 (1.2-4.9) X10*3/uL [place] # (Auto) 0.6 (0.1-1.2) X10*3/uL Eos # (Auto) 0.2 (0.0-0.4) X10*3/uL Baso # (Auto) 0.1 (0.0-0.2) X10*3/uL Abs Immat Gran (auto) 0.01 (0.00-0.03) X10*3/uL Absolute Neuts (auto) 3.7 (2.0-8.3) X10*3/uL Absolute Nucleated RBC 0.000 (0.0-0.012) X10*3/uL Nucleated RBC % (auto) 0.0 (0.0-0.2) /100WBC Hold Blue Top SEE NOTE Sodium 141 (135-145) mmol/L Potassium 4.1 (3.3-5.1) mmol/L Chloride 105 (96-108) mmol/L Carbon Dioxide 23 (22-29) mmol/L Anion Gap 17 (12-20) BUN 14 (9-16) mg/dL Creatinine 0.96 (0.5-1.4) mg/dL Estim Creat Clear Calc 82.2 Estimated GFR > 60 Random Glucose 98 (60-115) mg/dL Calcium 9.3 D (8.4-10.2) mg/dL Magnesium 2.5 (1.6-2.6) mg/dL Total Bilirubin 1.4 H (0.0-1.0) mg/dL Direct Bilirubin 0.4 (0.0-0.5) mg/dL AST 63 H (5-37) U/L ALT 63 H (0-40) U/L Alkaline Phosphatase 94 (39-117) U/L Troponin I High Sens (<3.5-35.0) ng/L Total Protein 7.9 (6.5-8.0) g/dL Albumin 4.9 (3.5-5.0) g/dL Lipase 26 (8-78) U/L Urine Color Urine Appearance Urine pH (5.0-8.0) Ur Specific [place] (1.005-1.025) Urine Protein (NEG-TRACE) MG/DL Urine Glucose (UA) (NEG) MG/DL Urine Ketones (NEG) MG/DL Urine Blood (NEG) Urine Nitrite (NEG) Ur Leukocyte Esterase (NEG) Urine Opiates Screen (Not Detect) Ur Barbiturates Screen (Not Detect) Ur Phencyclidine Scrn (Not Detect) Ur Amphetamines Screen (Not Detect) U Benzodiazepines Scrn (Not Detect) Urine Cocaine Screen (Not Detect) U Marijuana (THC) Screen (Not Detect) Ethyl Alcohol mg/dL 02/12/21 02/12/21 02/12/21 Range/Units 14:56 14:56 16:48 WBC (4.8-10.8) X10*3/uL RBC (4.60-5.80) X10*6/uL Hgb (14.0-18.0) g/dl Hct (42-52) % MCV (80-98) fL MCH (27.0-33.0) pg MCHC (31.0-36.0) g/dl RDW (11.0-16.0) % Plt Count (160-400) X10*3/uL MPV (9.4-12.4) fL Immature Gran % (Auto) (0.0-0.4) % Neut % (Auto) (45-73) % Lymph % (Auto) (20-40) % [place] % (Auto) (2-11) % Eos % (Auto) (0-4) % Baso % (Auto) (0-2) % Lymph # (Auto) (1.2-4.9) X10*3/uL [place] # (Auto) (0.1-1.2) X10*3/uL Eos # (Auto) (0.0-0.4) X10*3/uL Baso # (Auto) (0.0-0.2) X10*3/uL Abs Immat Gran (auto) (0.00-0.03) X10*3/uL Absolute Neuts (auto) (2.0-8.3) X10*3/uL Absolute Nucleated RBC (0.0-0.012) X10*3/uL Nucleated RBC % (auto) (0.0-0.2) /100WBC Hold Blue Top Sodium (135-145) mmol/L Potassium (3.3-5.1) mmol/L Chloride (96-108) mmol/L Carbon Dioxide (22-29) mmol/L Anion Gap (12-20) BUN (9-16) mg/dL Creatinine (0.5-1.4) mg/dL Estim Creat Clear Calc Estimated GFR Random Glucose (60-115) mg/dL Calcium (8.4-10.2) mg/dL Magnesium (1.6-2.6) mg/dL Total Bilirubin (0.0-1.0) mg/dL Direct Bilirubin (0.0-0.5) mg/dL AST (5-37) U/L ALT (0-40) U/L Alkaline Phosphatase (39-117) U/L Troponin I High Sens < 3.5 (<3.5-35.0) ng/L Total Protein (6.5-8.0) g/dL Albumin (3.5-5.0) g/dL Lipase (8-78) U/L Urine Color YELLOW Urine Appearance CLEAR Urine pH 6.0 (5.0-8.0) Ur Specific [place] 1.025 (1.005-1.025) Urine Protein TRACE (NEG-TRACE) MG/DL Urine Glucose (UA) NEG (NEG) MG/DL Urine Ketones NEG (NEG) MG/DL Urine Blood NEG (NEG) Urine Nitrite NEG (NEG) Ur Leukocyte Esterase NEG (NEG) Urine Opiates Screen (Not Detect) Ur Barbiturates Screen (Not Detect) Ur Phencyclidine Scrn (Not Detect) Ur Amphetamines Screen (Not Detect) U Benzodiazepines Scrn (Not Detect) Urine Cocaine Screen (Not Detect) U Marijuana (THC) Screen (Not Detect) Ethyl Alcohol < 10 mg/dL 02/12/21 Range/Units 16:48 WBC (4.8-10.8) X10*3/uL RBC (4.60-5.80) X10*6/uL Hgb (14.0-18.0) g/dl Hct (42-52) % MCV (80-98) fL MCH (27.0-33.0) pg MCHC (31.0-36.0) g/dl RDW (11.0-16.0) % Plt Count (160-400) X10*3/uL MPV (9.4-12.4) fL Immature Gran % (Auto) (0.0-0.4) % Neut % (Auto) (45-73) % Lymph % (Auto) (20-40) % [place] % (Auto) (2-11) % Eos % (Auto) (0-4) % Baso % (Auto) (0-2) % Lymph # (Auto) (1.2-4.9) X10*3/uL [place] # (Auto) (0.1-1.2) X10*3/uL Eos # (Auto) (0.0-0.4) X10*3/uL Baso # (Auto) (0.0-0.2) X10*3/uL Abs Immat Gran (auto) (0.00-0.03) X10*3/uL Absolute Neuts (auto) (2.0-8.3) X10*3/uL Absolute Nucleated RBC (0.0-0.012) X10*3/uL Nucleated RBC % (auto) (0.0-0.2) /100WBC Hold Blue Top Sodium (135-145) mmol/L Potassium (3.3-5.1) mmol/L Chloride (96-108) mmol/L Carbon Dioxide (22-29) mmol/L Anion Gap (12-20) BUN (9-16) mg/dL Creatinine (0.5-1.4) mg/dL Estim Creat Clear Calc Estimated GFR Random Glucose (60-115) mg/dL Calcium (8.4-10.2) mg/dL Magnesium (1.6-2.6) mg/dL Total Bilirubin (0.0-1.0) mg/dL Direct Bilirubin (0.0-0.5) mg/dL AST (5-37) U/L ALT (0-40) U/L Alkaline Phosphatase (39-117) U/L Troponin I High Sens (<3.5-35.0) ng/L Total Protein (6.5-8.0) g/dL Albumin (3.5-5.0) g/dL Lipase (8-78) U/L Urine Color Urine Appearance Urine pH (5.0-8.0) Ur Specific [place] (1.005-1.025) Urine Protein (NEG-TRACE) MG/DL Urine Glucose (UA) (NEG) MG/DL Urine Ketones (NEG) MG/DL Urine Blood (NEG) Urine Nitrite (NEG) Ur Leukocyte Esterase (NEG) Urine Opiates Screen Not Detected (Not Detect) Ur Barbiturates Screen Not Detected (Not Detect) Ur Phencyclidine Scrn Not Detected (Not Detect) Ur Amphetamines Screen Not Detected (Not Detect) U Benzodiazepines Scrn Not Detected (Not Detect) Urine Cocaine Screen Not Detected (Not Detect) U Marijuana (THC) Screen Not Detected (Not Detect) Ethyl Alcohol mg/dL <Lcay Mata DO - Last Filed: 02/12/21 18:21> ECG Data Attestation: I personally reviewed and interpreted this ECG as follows: <Lacy Mata DO - Last Filed: 02/12/21 18:21> Interpretation: Rate: 73 Rhythm: NSR [place]: left Normal P waves. Normal ANGEL[place]. Normal QRS complex. ST T wave : normal, no MARVIN qTC: normal prior studies: no acute ischemia The study has been interpreted contemporaneously by me. . <Lacy Mata DO - Last Filed: 02/12/21 18:21> Discharge Plan Discharge Clinical Impression: Abdominal muscle pain GIB (gastrointestinal bleeding) Qualifiers: GI bleed type/associated pathology: unspecified gastrointestinal hemorrhage type Qualified Code(s): K92.2 - Gastrointestinal hemorrhage, unspecified <BARRIGNTON Cruz - Last Filed: 02/12/21 14:07> Patient Disposition: Home, Self-Care <BARRINGTON Cruz Last Filed: 02/12/21 14:07> Additional Instructions: return to ED for any worsening symptoms or concerns avoid aspirin, motrin, ibuprofen, aleve take omeprazole and carafate <BARRINGTON Cruz Last Filed: 02/12/21 14:07> Prescriptions: New ondansetron 4 mg tablet,disintegrating 4 mg PO Q8H PRN (Reason: nausea and vomiting) Qty: 20 RF: 0 sucralfate [Carafate] 100 mg/mL suspension 10 ml PO QID 7 Days Qty: 280 RF: 0 No Action atorvastatin 80 mg tablet 80 mg PO DAILY Qty: 30 RF: 3 omeprazole 40 mg capsule,delayed release(DR/EC) 40 mg PO DAILY Qty: 90 RF: 1 metoprolol tartrate 25 mg tablet 12.5 mg PO BID Qty: 60 RF: 3 buspirone 10 mg tablet 10 mg PO BID Qty: 60 RF: 4 lamotrigine 200 mg tablet 200 mg PO BEDTIME Qty: 90 RF: 2 clonazepam 1 mg tablet 1 mg PO DAILY 30 Days Qty: 30 RF: 2 clonidine HCl 0.2 mg tablet 0.2 mg PO TID Qty: 90 RF: 3 aspirin 81 mg tablet,delayed release (DR/EC) 81 mg PO DAILY 90 Days Qty: 90 RF: 3 hydroxyzine HCl 50 mg tablet 1 tab PO TID RF: 0 amlodipine 5 mg tablet 1 tab PO DAILY RF: 0 lorazepam 0.5 mg tablet 1 tab PO BID PRN (Reason: Anxiety) RF: 0 dicyclomine 20 mg tablet PO RF: 0 sucralfate [Carafate] 1 gram tablet 1 g PO BID Qty: 60 RF: 0 azithromycin 250 mg tablet 250 mg PO DAILY 5 Days Qty: 6 RF: 0 Mucinex DM 30-600 mg tablet extended release 12 hr 1 tab PO Q12H PRN (Reason: cough) 10 Days Qty: 20 RF: 0 acetaminophen-codeine 300-30 mg tablet 1 tab PO Q8H 5 Days Qty: 15 RF: 0 naproxen 500 mg tablet 500 mg PO BID 7 Days Qty: 14 RF: 0 <BARRINGTON Cruz - Last Filed: 02/12/21 14:07> Referrals: Jeremiah Bowen [Physician] - 2 days <BARRINGTON Cruz - Last Filed: 02/12/21 14:07> Stand Alone Forms: Work/School Release <BARRINGTON Cruz - Last Filed: 02/12/21 14:07>
[2021-02-12 15:03] LABS: Basophils Absolute Auto 0.1 X10*3/uL (0.0-0.2); Basophils Percent Auto 0.8 % (0-2); Eosinophils Absolute Auto 0.2 X10*3/uL (0.0-0.4); Eosinophils Percent Auto 2.5 % (0-4); Hematocrit 46.5 % (42-52); Imm Gran Abs Auto 0.01 X10*3/uL (0.00-0.03); Imm Gran Pct Auto 0.2 % (0.0-0.4); Lymphocytes Absolute Auto 1.6 X10*3/uL (1.2-4.9); Lymphocytes Percent Auto 26.1 % (20-40); MANUAL DIFF FLAG NO; Mean Corpuscular HGB Conc 34.4 g/dl (31.0-36.0); Mean Corpuscular Hemoglobin 31.9 pg (27.0-33.0); Mean Corpuscular Volume 92.6 fL (80-98); Mean Platelet Volume 8.8 fL (9.4-12.4); Monocytes Absolute Auto 0.6 X10*3/uL (0.1-1.2); Monocytes Percent Auto 9.2 % (2-11); Neutrophils Absolute Auto 3.7 X10*3/uL (2.0-8.3); Neutrophils Percent Auto 61.2 % (45-73); Platelet Count 227 X10*3/uL (160-400); Red Blood Count 5.02 X10*6/uL (4.60-5.80); Red Cell Distribution Width 11.9 % (11.0-16.0)
[2021-02-12 15:31] LABS: Ethanol < 10 mg/dL
[2021-02-12 15:36] LABS: Alanine Aminotransferase 63 U/L (0-40); Albumin Level 4.9 g/dL (3.5-5.0); Alkaline Phosphatase 94 U/L (39-117); Anion Gap 17 (12-20); Aspartate Amino Transferase 63 U/L (5-37); Bilirubin Direct 0.4 mg/dL (0.0-0.5); Bilirubin Total 1.4 mg/dL (0.0-1.0); Blood Urea Nitrogen 14 mg/dL (9-16); Calcium 9.3 mg/dL (8.4-10.2); Carbon Dioxide 23 mmol/L (22-29); Chloride 105 mmol/L (96-108); Creatinine Clr Calc Pharmacy 82.2; Estimated Glomerular Filt Rate > 60; Glucose Random 98 mg/dL (60-115); Lipase 26 U/L (8-78); Magnesium 2.5 mg/dL (1.6-2.6); Potassium 4.1 mmol/L (3.3-5.1); Sodium 141 mmol/L (135-145); Total Protein 7.9 g/dL (6.5-8.0)
[2021-02-12 15:42] LABS: Troponin-I High Sensitivity < 3.5 ng/L (<3.5-35.0)
[2021-02-12] MEDS: LORazepam 2 MG/ML VIAL 1 MG IVPUSH (17:03)
[2021-02-12 17:16] LABS: Appearance Urine CLEAR; Color Urine YELLOW; Glucose Urine UA NEG (NEG); Leukocyte Esterase Urine NEG (NEG); Nitrite Urine NEG (NEG); Specific Gravity - Urine 1.025 (1.005-1.025); Urine Blood NEG (NEG); Urine Ketones NEG (NEG); Urine Protein TRACE MG/DL (NEG-TRACE)
[2021-02-12] MEDS: iohexoL 350 MG/ML 100 ML INFUS..BTL IV (17:29)
[2021-02-12 17:35] VITALS: BP 154/87; PULSE 86; RESP 18; O2SAT 100
[2021-02-12 17:41] LABS: Amphetamine Screen Urine Not Detected (Not Detect); Barbiturates, Urine Not Detected (Not Detect); Benzodiazepines Screen Urine Not Detected (Not Detect); Cannabinoid Screen Urine Not Detected (Not Detect); Cocaine Screen Urine Not Detected (Not Detect); Opiate Screen Urine Not Detected (Not Detect); Phencyclidine Screen Urine Not Detected (Not Detect)
== END 2021-02-12 18:43 | disposition home or self-care (01) ==
PROVIDERS: Physician Assistant; Emergency Provider Emergency Medicine; PCP Physician Assistant
DX: K92.2 Gastrointestinal hemorrhage, unspecified (principal); M79.18 Myalgia, other site; R10.11 Right upper quadrant pain; F10.10 Alcohol abuse, uncomplicated; Y90.0 Blood alcohol level of less than 20 mg/100 ml; F41.9 Anxiety disorder, unspecified; E78.5 Hyperlipidemia, unspecified; I10 Essential (primary) hypertension; Z79.02 Long term (current) use of antithrombotics/antiplatelets; Z79.899 Other long term (current) drug therapy
CPT/HCPCS: 36415; 71045; 74177; 76705; 80048; 80076; 80307; 80320; 81003; 83690; 83735; 84484; 85025; 93005; 96374; 99284; 99285; J2060; Q9967

== ENCOUNTER 2021-04-01 04:27 | Emergency (ER) | payer BC, SELFPAY ==
--- NOTE | 2021-04-01 04:55 | ECG_ITS ---
Test Reason : PAIN Blood Pressure : / mmHG Vent. Rate : 093 BPM Atrial Rate : 093 BPM P-R Int : 136 ms QRS Dur : 094 ms QT Int : 368 ms P-R-T Axes : 041 017 007 degrees QTc Int : 457 ms Normal sinus rhythm Possible Inferior infarct (cited on or before 01-APR-2021) Abnormal ECG When compared with ECG of 12-FEB-2021 15:54, No significant change was found Referred By: Angelia Hickman Electronically Signed By:SIMA CARRERA MD
[2021-04-01 05:05] VITALS: BP 156/97; PULSE 104; RESP 18; TEMP 37.2; O2SAT 95; BMI 26.4
[2021-04-01 05:23] LABS: Basophils Absolute Auto 0.1 X10*3/uL (0.0-0.2); Basophils Percent Auto 1.3 % (0-2); Eosinophils Absolute Auto 0.2 X10*3/uL (0.0-0.4); Eosinophils Percent Auto 3.9 % (0-4); Hematocrit 43.6 % (42-52); Hemoglobin 15.5 g/dl (14.0-18.0); Imm Gran Abs Auto 0.02 X10*3/uL (0.00-0.03); Imm Gran Pct Auto 0.4 % (0.0-0.4); Lymphocytes Absolute Auto 1.5 X10*3/uL (1.2-4.9); Lymphocytes Percent Auto 26.1 % (20-40); Mean Corpuscular HGB Conc 35.6 g/dl (31.0-36.0); Mean Corpuscular Hemoglobin 32.8 pg (27.0-33.0); Mean Corpuscular Volume 92.4 fL (80-98); Mean Platelet Volume 8.8 fL (9.4-12.4); Monocytes Absolute Auto 0.6 X10*3/uL (0.1-1.2); Monocytes Percent Auto 10.2 % (2-11); Neutrophils Absolute Auto 3.3 X10*3/uL (2.0-8.3); Neutrophils Percent Auto 58.1 % (45-73); Platelet Count 222 X10*3/uL (160-400); Red Blood Count 4.72 X10*6/uL (4.60-5.80); White Blood Count 5.6 X10*3/uL (4.8-10.8)
[2021-04-01 05:24] LABS: MANUAL DIFF FLAG NO
[2021-04-01 05:25] LABS: Appearance Urine CLEAR; Color Urine YELLOW; Glucose Urine UA NEG (NEG); Leukocyte Esterase Urine NEG (NEG); Nitrite Urine NEG (NEG); Specific Gravity - Urine 1.025 (1.005-1.025); UACC Culture Trigger NO; Urine Blood NEG (NEG); Urine Ketones 5 MG/DL (NEG); Urine Protein NEG (NEG-TRACE)
--- NOTE | 2021-04-01 05:41 | ED.ABDPAIN ---
HPI - Abdominal Pain General Chief Complaint: Abdominal Pain Stated Complaint: Nausea Time Seen by Provider: 04/01/21 04:54 Source: patient Mode of arrival: ambulatory History of Present Illness HPI narrative: This is a 55-year-old male with known alcohol dependence, drinks daily approximately 8 drinks and presents with some mild nausea as well as some epigastric discomfort but denies any fever, chills, shortness of breath, chest pain/palpitations and also endorses that he does have bleeding with his stools but states that this has ?been happening for years?. Related Data Home Medications Medication Instructions Recorded Confirmed amlodipine 1 tab PO DAILY 08/27/20 01/11/21 dicyclomine mg PO 08/27/20 01/11/21 hydroxyzine HCl 1 tab PO TID 08/27/20 01/11/21 lorazepam 1 tab PO BID PRN 08/27/20 01/11/21 Previous Rx's Medication Instructions Recorded sucralfate [Carafate] 1 g PO BID #60 tab 10/06/20 omeprazole 40 mg capsule,delayed 40 mg PO DAILY #90 cap 10/14/20 release azithromycin 250 mg tablet 250 mg PO DAILY 5 Days #6 tab 11/12/20 dextromethorphan-guaifenesin 30 1 tab PO Q12H PRN 10 Days #20 tab 11/12/20 mg-600 mg tablet extended [id number] hr buspirone 10 mg tablet 10 mg PO BID #60 tab 12/21/20 lamotrigine 200 mg tablet 200 mg PO BEDTIME #90 tab 12/26/20 clonazepam 1 mg tablet 1 mg PO DAILY 30 Days #30 tab 12/27/20 clonidine HCl 0.2 mg tablet 0.2 mg PO TID #90 tab 12/27/20 aspirin 81 mg tablet,delayed 81 mg PO DAILY 90 Days #90 tab 01/09/21 release acetaminophen 300 mg-codeine 30 mg 1 tab PO Q8H 5 Days #15 tab 01/10/21 tablet naproxen 500 mg tablet 500 mg PO BID 7 Days #14 tab 01/10/21 ondansetron 4 mg PO Q8H PRN #20 tab 02/12/21 sucralfate [Carafate] 10 ml PO QID 7 Days #280 ml 02/12/21 metoprolol tartrate 25 mg tablet 12.5 mg PO BID #60 tab 02/14/21 atorvastatin 80 mg tablet 80 mg PO DAILY #30 tab 03/07/21 Allergies Allergy/AdvReac Type Severity Reaction Status Date / Time diphenhydramine Allergy Unknown Unknown Verified 04/01/21 05:05 [From Benadryl] Review of Systems Review of Systems Pertinent positives and negatives as stated in HPI 10 point review of systems is otherwise negative. Physical Exam Vital Signs: Vital Signs: Last Vital Signs Temp 98.9 F 04/01/21 05:05 Pulse 75 04/01/21 06:35 Resp 17 04/01/21 06:35 BP 151/97 H 04/01/21 06:35 Pulse Ox 95 04/01/21 06:35 Body Mass Index 26.4 VITAL SIGNS: Reviewed. GENERAL: Well developed, well nourished, in no acute distress. HEAD: Normocephalic/atraumatic EYES: PERRLA, EOMI OROPHARYNX: no oral lesions noted, posterior pharynx clear NECK: Supple, no adenopathy LUNGS: Normal breath sounds. No adventitious sounds or accessory muscle use. SpO2<95> CARDIOVASCULAR: Regular rate and rhythm without noted murmurs, no JVD or lower extremity edema. ABDOMEN: Soft, mild tenderness at epigastrium, non-distended with bowel sounds. REKHA: No tags, no inflamed hemorrhoids, minimal brown stool in the rectal vault, good rectal tone and negative guaiac by the lab. NEUROLOGIC: Alert and oriented x 4. Course Course Course Narrative: This is a 55-year-old male with history and clinical presentation consistent with alcohol dependence and likely alcoholic gastritis, REKHA was guaiac negative and there is no evidence of acute bleed on lab work or review of vital signs. Review of all investigations negative for any acute findings. Patient was provided with Zofran as well as Protonix hello be discharged home with instructions follow-up with his PCP. MDM - Abdominal Pain Lab Data Result diagrams: 04/01/21 05:18 04/01/21 05:18 Labs: Lab Results 04/01/21 04/01/21 04/01/21 Range/Units 05:12 05:18 05:18 WBC 5.6 (4.8-10.8) X10*3/uL RBC 4.72 (4.60-5.80) X10*6/uL Hgb 15.5 (14.0-18.0) g/dl Hct 43.6 (42-52) % MCV 92.4 (80-98) fL MCH 32.8 (27.0-33.0) pg MCHC 35.6 (31.0-36.0) g/dl RDW 12.0 (11.0-16.0) % Plt Count 222 (160-400) X10*3/uL MPV 8.8 L (9.4-12.4) fL Immature Gran % (Auto) 0.4 (0.0-0.4) % Neut % (Auto) 58.1 (45-73) % Lymph % (Auto) 26.1 (20-40) % [place] % (Auto) 10.2 (2-11) % Eos % (Auto) 3.9 (0-4) % Baso % (Auto) 1.3 (0-2) % Lymph # (Auto) 1.5 (1.2-4.9) X10*3/uL [place] # (Auto) 0.6 (0.1-1.2) X10*3/uL Eos # (Auto) 0.2 (0.0-0.4) X10*3/uL Baso # (Auto) 0.1 (0.0-0.2) X10*3/uL Abs Immat Gran (auto) 0.02 (0.00-0.03) X10*3/uL Absolute Neuts (auto) 3.3 (2.0-8.3) X10*3/uL Absolute Nucleated RBC 0.000 (0.0-0.012) X10*3/uL Nucleated RBC % (auto) 0.0 (0.0-0.2) /100WBC Sodium 141 (135-145) mmol/L Potassium 4.2 (3.3-5.1) mmol/L Chloride 108 (96-108) mmol/L Carbon Dioxide 19 L (22-29) mmol/L Anion Gap 18 (12-20) BUN 18 H (9-16) mg/dL Creatinine 1.02 (0.5-1.4) mg/dL Estim Creat Clear Calc 80.0 Estimated GFR > 60 Random Glucose 102 (60-115) mg/dL Calcium 9.3 (8.4-10.2) mg/dL Total Bilirubin 0.6 (0.0-1.0) mg/dL AST 37 D (5-37) U/L ALT 39 (0-40) U/L Alkaline Phosphatase 80 (39-117) U/L Troponin I High Sens (<3.5-35.0) ng/L Total Protein 7.5 (6.5-8.0) g/dL Albumin 4.6 (3.5-5.0) g/dL Lipase 36 (8-78) U/L Urine Color YELLOW Urine Appearance CLEAR Urine pH 6.0 (5.0-8.0) Ur Specific [place] 1.025 (1.005-1.025) Urine Protein NEG (NEG-TRACE) MG/DL Urine Glucose (UA) NEG (NEG) MG/DL Urine Ketones 5 (NEG) MG/DL Urine Blood NEG (NEG) Urine Nitrite NEG (NEG) Ur Leukocyte Esterase NEG (NEG) Stool Occult Blood (NEGATIVE) Ethyl Alcohol mg/dL 04/01/21 04/01/21 04/01/21 Range/Units 05:18 05:18 05:18 WBC (4.8-10.8) X10*3/uL RBC (4.60-5.80) X10*6/uL Hgb (14.0-18.0) g/dl Hct (42-52) % MCV (80-98) fL MCH (27.0-33.0) pg MCHC (31.0-36.0) g/dl RDW (11.0-16.0) % Plt Count (160-400) X10*3/uL MPV (9.4-12.4) fL Immature Gran % (Auto) (0.0-0.4) % Neut % (Auto) (45-73) % Lymph % (Auto) (20-40) % [place] % (Auto) (2-11) % Eos % (Auto) (0-4) % Baso % (Auto) (0-2) % Lymph # (Auto) (1.2-4.9) X10*3/uL [place] # (Auto) (0.1-1.2) X10*3/uL Eos # (Auto) (0.0-0.4) X10*3/uL Baso # (Auto) (0.0-0.2) X10*3/uL Abs Immat Gran (auto) (0.00-0.03) X10*3/uL Absolute Neuts (auto) (2.0-8.3) X10*3/uL Absolute Nucleated RBC (0.0-0.012) X10*3/uL Nucleated RBC % (auto) (0.0-0.2) /100WBC Sodium (135-145) mmol/L Potassium (3.3-5.1) mmol/L Chloride (96-108) mmol/L Carbon Dioxide (22-29) mmol/L Anion Gap (12-20) BUN (9-16) mg/dL Creatinine (0.5-1.4) mg/dL Estim Creat Clear Calc Estimated GFR Random Glucose (60-115) mg/dL Calcium (8.4-10.2) mg/dL Total Bilirubin (0.0-1.0) mg/dL AST (5-37) U/L ALT (0-40) U/L Alkaline Phosphatase (39-117) U/L Troponin I High Sens < 3.5 (<3.5-35.0) ng/L Total Protein (6.5-8.0) g/dL Albumin (3.5-5.0) g/dL Lipase Cancelled (8-78) U/L Urine Color Urine Appearance Urine pH (5.0-8.0) Ur Specific [place] (1.005-1.025) Urine Protein (NEG-TRACE) MG/DL Urine Glucose (UA) (NEG) MG/DL Urine Ketones (NEG) MG/DL Urine Blood (NEG) Urine Nitrite (NEG) Ur Leukocyte Esterase (NEG) Stool Occult Blood (NEGATIVE) Ethyl Alcohol 23 mg/dL 04/01/21 Range/Units 05:54 WBC (4.8-10.8) X10*3/uL RBC (4.60-5.80) X10*6/uL Hgb (14.0-18.0) g/dl Hct (42-52) % MCV (80-98) fL MCH (27.0-33.0) pg MCHC (31.0-36.0) g/dl RDW (11.0-16.0) % Plt Count (160-400) X10*3/uL MPV (9.4-12.4) fL Immature Gran % (Auto) (0.0-0.4) % Neut % (Auto) (45-73) % Lymph % (Auto) (20-40) % [place] % (Auto) (2-11) % Eos % (Auto) (0-4) % Baso % (Auto) (0-2) % Lymph # (Auto) (1.2-4.9) X10*3/uL [place] # (Auto) (0.1-1.2) X10*3/uL Eos # (Auto) (0.0-0.4) X10*3/uL Baso # (Auto) (0.0-0.2) X10*3/uL Abs Immat Gran (auto) (0.00-0.03) X10*3/uL Absolute Neuts (auto) (2.0-8.3) X10*3/uL Absolute Nucleated RBC (0.0-0.012) X10*3/uL Nucleated RBC % (auto) (0.0-0.2) /100WBC Sodium (135-145) mmol/L Potassium (3.3-5.1) mmol/L Chloride (96-108) mmol/L Carbon Dioxide (22-29) mmol/L Anion Gap (12-20) BUN (9-16) mg/dL Creatinine (0.5-1.4) mg/dL Estim Creat Clear Calc Estimated GFR Random Glucose (60-115) mg/dL Calcium (8.4-10.2) mg/dL Total Bilirubin (0.0-1.0) mg/dL AST (5-37) U/L ALT (0-40) U/L Alkaline Phosphatase (39-117) U/L Troponin I High Sens (<3.5-35.0) ng/L Total Protein (6.5-8.0) g/dL Albumin (3.5-5.0) g/dL Lipase (8-78) U/L Urine Color Urine Appearance Urine pH (5.0-8.0) Ur Specific [place] (1.005-1.025) Urine Protein (NEG-TRACE) MG/DL Urine Glucose (UA) (NEG) MG/DL Urine Ketones (NEG) MG/DL Urine Blood (NEG) Urine Nitrite (NEG) Ur Leukocyte Esterase (NEG) Stool Occult Blood NEGATIVE (NEGATIVE) Ethyl Alcohol mg/dL ECG Data Attestation: I personally reviewed and interpreted this ECG as follows: Prior ECG tracings: available for review (02/12/2021 no acute changes on comparison) Interpretation: Normal sinus rhythm, HR-93, no evidence of acute ischemia, MA/QRS/QTC are within normal limits. Discharge Plan Discharge Clinical Impression: Alcoholic gastritis Patient Disposition: Home, Self-Care Instructions: Gastritis (ED), Alcohol Dependence (ED) Additional Instructions: Resume all home medications as prescribed. Follow-up with your primary care provider for further discussion regarding gastritis symptoms and outpatient management and treatment. Call the office today. Return to the ER for any worsening of symptoms. Prescriptions: No Action omeprazole 40 mg capsule,delayed release(DR/EC) 40 mg PO DAILY Qty: 90 RF: 1 buspirone 10 mg tablet 10 mg PO BID Qty: 60 RF: 4 lamotrigine 200 mg tablet 200 mg PO BEDTIME Qty: 90 RF: 2 clonazepam 1 mg tablet 1 mg PO DAILY 30 Days Qty: 30 RF: 2 clonidine HCl 0.2 mg tablet 0.2 mg PO TID Qty: 90 RF: 3 aspirin 81 mg tablet,delayed release (DR/EC) 81 mg PO DAILY 90 Days Qty: 90 RF: 3 metoprolol tartrate 25 mg tablet 12.5 mg PO BID Qty: 60 RF: 3 atorvastatin 80 mg tablet 80 mg PO DAILY Qty: 30 RF: 3 ondansetron 4 mg tablet,disintegrating 4 mg PO Q8H PRN (Reason: nausea and vomiting) Qty: 20 RF: 0 sucralfate [Carafate] 100 mg/mL suspension 10 ml PO QID 7 Days Qty: 280 RF: 0 hydroxyzine HCl 50 mg tablet 1 tab PO TID RF: 0 amlodipine 5 mg tablet 1 tab PO DAILY RF: 0 lorazepam 0.5 mg tablet 1 tab PO BID PRN (Reason: Anxiety) RF: 0 dicyclomine 20 mg tablet PO RF: 0 sucralfate [Carafate] 1 gram tablet 1 g PO BID Qty: 60 RF: 0 azithromycin 250 mg tablet 250 mg PO DAILY 5 Days Qty: 6 RF: 0 Mucinex DM 30-600 mg tablet extended release 12 hr 1 tab PO Q12H PRN (Reason: cough) 10 Days Qty: 20 RF: 0 acetaminophen-codeine 300-30 mg tablet 1 tab PO Q8H 5 Days Qty: 15 RF: 0 naproxen 500 mg tablet 500 mg PO BID 7 Days Qty: 14 RF: 0 Referrals: Daron Franco PA-C [Primary Care Provider] - 2 days (Re-evaluate for suspected alcoholic gastritis.) [facility] Past Medical History Source: nursing notes reviewed Medical History Alcohol abuse Anxiety Bronchitis CAD (coronary artery disease) COVID-19 ruled out Dyslipidemia Hiatal hernia Hypertension Insomnia PUD (peptic ulcer disease) STEMI (ST elevation myocardial infarction) Surgical History H/O heart artery stent History of esophagogastroduodenoscopy (EGD) Hx of colonoscopy Family History Family History Father Medical history unknown Mother No problems noted. Social History Social History Are you a primary primary care coordinator to a significant other at home: No Alcohol intake: current Alcohol intake frequency: 3 or more drinks per day Alcohol type: beer Advance Directives: No Advance Directives Information Provided: No
[2021-04-01 05:43] LABS: Ethanol 23 mg/dL
[2021-04-01 05:58] LABS: OBS Int Ctl Valid YES; OBS1 NEGATIVE (NEGATIVE)
[2021-04-01 06:06] LABS: Alanine Aminotransferase 39 U/L (0-40); Albumin Level 4.6 g/dL (3.5-5.0); Alkaline Phosphatase 80 U/L (39-117); Anion Gap 18 (12-20); Aspartate Amino Transferase 37 U/L (5-37); Bilirubin Total 0.6 mg/dL (0.0-1.0); Blood Urea Nitrogen 18 mg/dL (9-16); Calcium 9.3 mg/dL (8.4-10.2); Carbon Dioxide 19 mmol/L (22-29); Chloride 108 mmol/L (96-108); Estimated Glomerular Filt Rate > 60; Glucose Random 102 mg/dL (60-115); Lipase 36 U/L (8-78); Potassium 4.2 mmol/L (3.3-5.1); Sodium 141 mmol/L (135-145); Total Protein 7.5 g/dL (6.5-8.0)
[2021-04-01 06:15] LABS: Troponin-I High Sensitivity < 3.5 ng/L (<3.5-35.0)
[2021-04-01 06:35] VITALS: BP 151/97; PULSE 75; RESP 17; O2SAT 95
[2021-04-01] MEDS: Pantoprazole Sodium 40 MG/10 ML VIAL IVPUSH (06:37)
[2021-04-01] MEDS: ondansetron HCL 4 MG/2 ML VIAL IVPUSH (06:37)
--- NOTE | 2021-04-01 06:45 | PC.NURSE ---
This RN at bedside to medicate with protonix and zofran as ordered. Pt appears comfortable in NAD. Pt states I could really use some morphine or some percocet for the pain This rn explains that protonix will hopefully improve the burning sensation in his RUQ, but this RN will relay request to Dr Hickman. Dr Hickman made aware. No narcotic intervention ordered at this time
== END 2021-04-01 07:12 | disposition home or self-care (01) ==
PROVIDERS: Emergency Provider Student in an Organized Health Care Education/Training Program; PCP Physician Assistant
DX: K29.20 Alcoholic gastritis without bleeding (principal); F10.20 Alcohol dependence, uncomplicated; I10 Essential (primary) hypertension; I25.10 Atherosclerotic heart disease of native coronary artery without angina pectoris; I25.2 Old myocardial infarction; Z79.82 Long term (current) use of aspirin; Z79.899 Other long term (current) drug therapy
CPT/HCPCS: 36415; 80053; 81003; 82077; 82272; 83690; 84484; 85025; 93005; 96374; 96375; 99284; J2405

== ENCOUNTER 2021-10-10 15:41 | Outpatient (REF) | payer BC, SELFPAY ==
[2021-10-10 16:00] LABS: MANUAL DIFF FLAG NO
[2021-10-10 16:37] LABS: Basophils Absolute Auto 0.1 X10*3/uL (0.0-0.2); Eosinophils Absolute Auto 0.2 X10*3/uL (0.0-0.4); Eosinophils Percent Auto 3.7 % (0-4); Hemoglobin 16.1 g/dl (14.0-18.0); Imm Gran Abs Auto 0.02 X10*3/uL (0.00-0.03); Imm Gran Pct Auto 0.3 % (0.0-0.4); Lymphocytes Absolute Auto 1.6 X10*3/uL (1.2-4.9); Lymphocytes Percent Auto 25.2 % (20-40); Mean Corpuscular HGB Conc 34.3 g/dl (31.0-36.0); Mean Corpuscular Hemoglobin 31.9 pg (27.0-33.0); Mean Corpuscular Volume 93.1 fL (80.0-98.0); Mean Platelet Volume 9.3 fL (9.4-12.4); Monocytes Absolute Auto 0.7 X10*3/uL (0.1-1.2); Monocytes Percent Auto 10.7 % (2-11); Neutrophils Absolute Auto 3.7 x10*3/uL (2.0-8.3); Neutrophils Percent Auto 59.1 % (45-73); Platelet Count 269 X10*3/uL (160-400); Red Blood Count 5.05 X10*6/uL (4.60-5.80); White Blood Count 6.2 X10*3/uL (4.8-10.8)
[2021-10-10 17:08] LABS: Alanine Aminotransferase 33 U/L (0-40); Albumin Level 4.8 g/dL (3.5-5.0); Alkaline Phosphatase 77 U/L (39-117); Anion Gap 15 (12-20); Aspartate Amino Transferase 31 U/L (5-37); Bilirubin Total 1.3 mg/dL (0.0-1.0); Blood Urea Nitrogen 16 mg/dL (9-16); Calcium 9.9 mg/dL (8.4-10.2); Carbon Dioxide 25 mmol/L (22-29); Chloride 105 mmol/L (96-108); Estimated Glomerular Filt Rate > 60; Glucose Random 85 mg/dL (60-115); Potassium 4.3 mmol/L (3.3-5.1); Sodium 141 mmol/L (135-145); Total Protein 8.1 g/dL (6.5-8.0)
[2021-10-10 17:31] LABS: Vitamin D 25-OH Total 13.5 ng/mL (>30)
[2021-10-10 17:43] LABS: Vitamin B12 248 pg/mL (200-900)
== END 2021-10-10 15:42 | disposition home or self-care (01) ==
LOC: HO.LAB 15:41
PROVIDERS: PCP Physician Assistant; Visit Provider Nurse Practitioner Family
DX: R10.11 Right upper quadrant pain (principal)
CPT/HCPCS: 36415; 80053; 82306; 82607; 82746; 85025

== ENCOUNTER → 2021-10-31 11:12 | Outpatient (BNVA) | payer BC, SELFPAY | PROVIDERS: PCP Physician Assistant; Visit Provider Nurse Practitioner Psychiatric/Mental Health | DX: F10.20 Alcohol dependence, uncomplicated (principal) | CPT/HCPCS: 80305 ==

== ENCOUNTER 2021-10-31 12:47 | Outpatient (REF) | payer BC, SELFPAY ==
[2021-10-31 13:37] LABS: Alanine Aminotransferase 63 U/L (0-40); Albumin Level 4.7 g/dL (3.5-5.0); Alkaline Phosphatase 79 U/L (39-117); Aspartate Amino Transferase 53 U/L (5-37); Bilirubin Direct < 0.2 mg/dL (0.0-0.5); Bilirubin Total 0.4 mg/dL (0.0-1.0); Total Protein 7.7 g/dL (6.5-8.0)
== END 2021-10-31 12:48 | disposition home or self-care (01) ==
LOC: HO.LAB 12:47
PROVIDERS: PCP Physician Assistant; Visit Provider Nurse Practitioner Family
DX: R17 Unspecified jaundice (principal)
CPT/HCPCS: 36415; 80076

== ENCOUNTER → 2021-11-07 10:16 | Outpatient (BNVA) | payer BC, SELFPAY | PROVIDERS: PCP Physician Assistant; Visit Provider Nurse Practitioner Psychiatric/Mental Health | DX: Z51.81 Encounter for therapeutic drug level monitoring (principal); F10.20 Alcohol dependence, uncomplicated | CPT/HCPCS: 80305 ==

== ENCOUNTER 2021-11-08 14:09 | Outpatient (REF) | payer BC, SELFPAY ==
--- NOTE | ~2021-11-08 | US_ITS ---
EXAMINATION: US ABDOMEN COMPLETE CLINICAL INFORMATION: Right upper quadrant pain. COMPARISON: CT abdomen and pelvis 02/12/2021. Ultrasound abdomen limited 02/12/2021 and 01/11/2020. X-ray abdomen 08/26/2019. TECHNIQUE: Real-time imaging of the abdominal viscera. FINDINGS: PANCREAS: The pancreas could not be evaluated as it was obscured by bowel gas. ABDOMINAL AORTA: The proximal, mid, and distal segments are normal in caliber. INFERIOR VENA CAVA: Visualized portions are normal. LIVER: The liver is normal in size. The liver contour is normal. There is diffuse increased liver parenchymal echogenicity, consistent with hepatic steatosis seen on prior CT. No focal hepatic lesion. There is no intrahepatic biliary duct dilatation seen. GALLBLADDER: The gallbladder is physiologically distended without evidence of stones, sludge, polyps, wall thickening or pericholecystic fluid. COMMON BILE DUCT: Normal in caliber measuring 0.4 cm in diameter. RIGHT KIDNEY: At least 3 echogenic foci present measuring 3-4 mm in size consistent with nonobstructing calculi. There is a small subcentimeter 7 x 6 x 8 mm complex cyst in the lower pole of the right kidney with possibly calcification in its wall. On CT scan, a benign water density Bosniak class I simple 1.5 cm cyst was noted in this area. No suspicious solid renal masses seen. No hydronephrosis. The kidney measures 10.0 cm in maximum dimension. LEFT KIDNEY: Multiple nonobstructing renal calculi present with the largest echogenic foci measuring 5 mm in the mid kidney and 4 mm at the lower pole. No hydronephrosis or focal parenchymal lesions. The kidney measures 10.2 cm in maximum dimension. SPLEEN: Normal. The spleen measures 10.8 cm in maximum dimension. FREE FLUID: None. US/US abdomen complete IMPRESSION: 1. A cause for the patient's acute right upper quadrant pain is not found. 2. Again seen is hepatic steatosis. 3. Again noted are bilateral renal calculi and a benign right lower pole renal cyst. The renal cyst needs no further imaging or follow-up.
== END 2021-11-08 14:10 | disposition home or self-care (01) ==
LOC: HO.HMGCX 14:09
PROVIDERS: PCP Physician Assistant; Visit Provider Nurse Practitioner Family
DX: R10.11 Right upper quadrant pain (principal)
CPT/HCPCS: 76700

== ENCOUNTER 2021-11-20 15:53 | Outpatient (REF) | payer BC, SELFPAY ==
[2021-11-20 16:50] LABS: Hematocrit 44.1 % (42.0-52.0); Hemoglobin 15.4 g/dl (14.0-18.0); Mean Corpuscular HGB Conc 34.9 g/dl (31.0-36.0); Mean Corpuscular Hemoglobin 32.2 pg (27.0-33.0); Mean Corpuscular Volume 92.1 fL (80.0-98.0); Mean Platelet Volume 9.2 fL (9.4-12.4); Platelet Count 252 X10*3/uL (160-400); Red Blood Count 4.79 X10*6/uL (4.60-5.80); Red Cell Distribution Width 11.9 % (11.0-16.0); White Blood Count 6.5 X10*3/uL (4.8-10.8)
[2021-11-20 16:57] LABS: Estimated Average Glucose 100 mg/dL; Hemoglobin A1c % 5.1 %
[2021-11-20 17:19] LABS: Alanine Aminotransferase 30 U/L (0-40); Albumin Level 4.7 g/dL (3.5-5.0); Alkaline Phosphatase 82 U/L (39-117); Anion Gap 15 (12-20); Aspartate Amino Transferase 28 U/L (5-37); Bilirubin Total 0.6 mg/dL (0.0-1.0); Blood Urea Nitrogen 13 mg/dL (9-16); Calcium 9.8 mg/dL (8.4-10.2); Carbon Dioxide 25 mmol/L (22-29); Chloride 105 mmol/L (96-108); Cholesterol 213 mg/dL; Estimated Glomerular Filt Rate > 60; Glucose Fasting 92 mg/dL (60-99); HDL Cholesterol 51 mg/dL; LDL Cholesterol Calculated 141 mg/dl; Sodium 141 mmol/L (135-145); Total Protein 7.9 g/dL (6.5-8.0); Triglycerides 106 mg/dL
[2021-11-20 17:51] LABS: Prostate Specific Antigen Scr 3.75 ng/mL (<0.05-4.0); TSH reflex Free T4 0.84 uIU/mL (0.32-4.0)
[2021-11-21 07:55] LABS: HBS Num1 0.57 mIU/mL (0-7.99); HBc Num1 0.08 S/CO (0.00-0.79); HBsAGNum1 0.25 S/CO (0.00-0.99); Hepatitis B Core Antibody Nonreactive (Nonreactive); Hepatitis B Surface Antigen Negative (Negative); ~HepC Num1 0.14 S/CO (0.00-0.79); ~Hepatitis B Surface Antibody NONREACTIVE (Nonreactive); ~Hepatitis C Antibody Nonreactive (Nonreactive)
[2021-11-22 08:22] LABS: ~Hepatitis A Antibody IgM Nonreactive (Nonreactive)
== END 2021-11-20 15:54 | disposition home or self-care (01) ==
LOC: HO.LAB 15:53
PROVIDERS: Absent Provider Physician Assistant Medical; PCP Physician Assistant; Referring Provider Physician Assistant; Visit Provider Nurse Practitioner Family
DX: I10 Essential (primary) hypertension (principal); I25.10 Atherosclerotic heart disease of native coronary artery without angina pectoris; R79.89 Other specified abnormal findings of blood chemistry; Z12.5 Encounter for screening for malignant neoplasm of prostate
CPT/HCPCS: 36415; 80053; 80061; 83036; 84153; 84443; 85027; 86704; 86706; 86709; 86803; 87340

== ENCOUNTER 2022-07-03 12:19 | Outpatient (REF) | payer BC, SELFPAY ==
[2022-07-03 12:38] LABS: MANUAL DIFF FLAG NO
[2022-07-03 13:40] LABS: Basophils Absolute Auto 0.1 X10*3/uL (0.0-0.2); Eosinophils Absolute Auto 0.2 X10*3/uL (0.0-0.4); Hematocrit 44.5 % (42.0-52.0); Hemoglobin 15.1 g/dl (14.0-18.0); Imm Gran Abs Auto 0.02 X10*3/uL (0.00-0.03); Imm Gran Pct Auto 0.3 % (0.0-0.4); Lymphocytes Absolute Auto 1.4 X10*3/uL (1.2-4.9); Lymphocytes Percent Auto 23.7 % (20-40); Mean Corpuscular HGB Conc 33.9 g/dl (31.0-36.0); Mean Corpuscular Hemoglobin 30.9 pg (27.0-33.0); Mean Platelet Volume 9.6 fL (9.4-12.4); Monocytes Absolute Auto 0.6 X10*3/uL (0.1-1.2); Monocytes Percent Auto 10.6 % (2-11); Neutrophils Absolute Auto 3.5 x10*3/uL (2.0-8.3); Neutrophils Percent Auto 60.4 % (45-73); Platelet Count 282 X10*3/uL (160-400); Red Blood Count 4.89 X10*6/uL (4.60-5.80); White Blood Count 5.8 X10*3/uL (4.8-10.8)
[2022-07-03 14:24] LABS: Alanine Aminotransferase 44 U/L (0-40); Albumin Level 4.5 g/dL (3.5-5.0); Alkaline Phosphatase 79 U/L (39-117); Amylase 66 U/L (28-100); Anion Gap 18 (12-20); Aspartate Amino Transferase 37 U/L (5-37); Bilirubin Direct 0.2 mg/dL (0.0-0.5); Bilirubin Total 0.7 mg/dL (0.0-1.0); Blood Urea Nitrogen 13 mg/dL (9-16); Calcium 9.4 mg/dL (8.4-10.2); Carbon Dioxide 23 mmol/L (22-29); Chloride 106 mmol/L (96-108); Cholesterol 242 mg/dL; Estimated Glomerular Filt Rate > 60; Glucose Random 96 mg/dL (60-115); HDL Cholesterol 66 mg/dL; LDL Cholesterol Calculated 154 mg/dl; Lipase 42 U/L (8-78); Potassium 4.6 mmol/L (3.3-5.1); Sodium 142 mmol/L (135-145); Total Protein 7.5 g/dL (6.5-8.0); Triglycerides 114 mg/dL
== END 2022-07-03 12:20 | disposition home or self-care (01) ==
LOC: HO.LAB 12:19
PROVIDERS: PCP Physician Assistant; Visit Provider Internal Medicine Cardiovascular Disease
DX: I25.10 Atherosclerotic heart disease of native coronary artery without angina pectoris (principal); E78.5 Hyperlipidemia, unspecified
CPT/HCPCS: 36415; 80048; 80061; 80076; 82150; 83690; 85025

== ENCOUNTER 2022-10-17 04:10 | Emergency (ER) | payer BC, SELFPAY ==
[2022-10-17 04:40] VITALS: BP 124/79; PULSE 116; RESP 20; TEMP 37; O2SAT 98; BMI 26.1
[2022-10-17 07:44] LABS: COVID-19 Test Positive (Negative); IDNOW Serial# 16C4AD1C
[2022-10-17 07:53] LABS: IDNOW Serial# BCCEAD1C; Influenza A Negative (Negative); Influenza B2 Negative (Negative)
--- NOTE | 2022-10-17 08:04 | ED.GENADULT ---
HPI - General Adult General Chief complaint: General Medical Stated complaint: SOB Time Seen by Provider: 10/17/22 07:40 Source: patient Mode of arrival: ambulatory Limitations: no limitations History of Present Illness HPI narrative: Patient is a 57 year old assigned male at with a history of HTN presenting to the emergency department today with a cough and nausea. Patient states that starting this morning he began to have a cough and nausea. Patient denies any dizziness, lightheadedness, abdominal pain, nausea, vomiting, fever, chills, blurry vision, double vision, loss of vision, chest pain, difficulty breathing, shortness of breath, back pain, night sweats, pain with urination, increased urinary frequency, increased urinary urgency, blood in his urine or stool, syncope or a near syncopal episode, recent trauma or falls, bowel incontinence, bladder incontinence, bowel retention, bladder retention, or any other complaints at this time. Onset (ago): hour(s) Severity: mild Severity scale (1-10): 3 Relieving factors: none Exacerbating factors: none Associated symptoms: cough and nausea/vomiting Treatments prior to arrival: none Related Data Previous Rx's Medication Instructions Recorded blood pressure monitor (Blood #1 ea 08/06/21 Pressure Kit) cholecalciferol (vitamin D3) 25 25 mcg PO DAILY #90 tabs 10/15/21 mcg (1,000 unit) tablet baclofen 20 mg tablet 20 mg PO BID pain (scale score 10/21/21 7-10) 15 days #30 tabs thiamine HCl (vitamin B1) 100 mg 100 mg PO DAILY #30 tabs 10/31/21 tablet ezetimibe 10 mg tablet (Zetia) 10 mg PO DAILY 30 days #30 tabs 11/21/21 aspirin 81 mg tablet,delayed 81 mg PO DAILY 90 days #90 tabs 12/17/21 release atorvastatin 80 mg tablet 80 mg PO DAILY #30 tabs 05/27/22 lamotrigine 200 mg tablet 200 mg PO BEDTIME #90 tabs 07/21/22 metoprolol tartrate 25 mg tablet 12.5 mg PO BID #60 tabs 07/21/22 sertraline 50 mg tablet (Zoloft) 50 mg PO DAILY 30 days #30 tabs 08/19/22 buspirone 15 mg tablet 15 mg PO BID 30 days #60 tabs 08/27/22 omeprazole 40 mg capsule,delayed 40 mg PO DAILY #90 caps 08/27/22 release clonazepam 1 mg tablet 1 mg PO DAILY PRN panic attack(s) 10/15/22 30 days #8 tabs benzonatate 100 mg capsule 100 mg PO BID PRN cough 7 days #14 10/17/22 caps ondansetron 4 mg disintegrating 4 mg PO Q8H 3 days #9 tabs 10/17/22 tablet Allergies Allergy/AdvReac Type Severity Reaction Status Date / Time diphenhydramine Allergy Unknown Unknown Verified 08/27/22 11:30 [From Benadryl] clonidine AdvReac Intermediate Dry mouth Verified 08/27/22 11:33 hydroxyzine AdvReac Intermediate Dizziness Verified 08/27/22 11:34 Review of Systems Constitutional: Constitutional: Reports no additional constitutional complaints, Denies chills, Denies fever(s) and Denies night sweats Eyes: Eyes: Reports no additional eye complaints, Denies blurry vision, Denies change in vision, Denies diplopia, Denies eye discharge, Denies loss of vision and Denies eye pain ENT: Denies dizziness Cardiovascular: Cardiovascular: Reports no additional cardiovascular complaints, Denies chest pain, Denies lightheadedness, Denies Loss of Consciousness and Denies dyspnea Respiratory: Respiratory: Reports no additional respiratory complaints, Reports cough and Denies dyspnea Gastrointestinal: Gastrointestinal: Reports no additional gastrointestinal complaints, Denies abdominal pain, Denies melena, Denies hematochezia, Denies change in bowel habits, Denies change in stool character and Reports nausea Genitourinary: Genitourinary: Reports no additional male genitourinary complaints, Denies hematuria, Denies oliguria, Denies difficulty urinating, Denies dysuria, Denies urinary frequency, Denies urinary hesitancy, Denies urinary incontinence and Denies urinary urgency Musculoskeletal: Musculoskeletal: Reports no additional musculoskeletal complaints, Denies numbness and Denies tingling Neurologic: Denies dizziness, Denies loss of vision, Denies numbness and Denies tingling Psychiatric: Psychiatric: Reports no additional psychiatric complaints Endocrine: Endocrine: Reports no additional endocrine complaints Hematologic/Lymphatic: Hematologic/Lymphatic: Reports no additional hematologic/lymphatic complaints Allergic/Immunologic: Allergic/Immunologic: Reports no additional allergic/immunologic complaints PMFSH Past Medical History Attestation statement: The following information was validated with the patient. Source: old records reviewed and nursing notes reviewed Medical History Alcohol abuse Anxiety Bronchitis CAD (coronary artery disease) COVID-19 ruled out Dyslipidemia Hiatal hernia Hypertension Insomnia PUD (peptic ulcer disease) STEMI (ST elevation myocardial infarction) Surgical History H/O heart artery stent History of esophagogastroduodenoscopy (EGD) Hx of colonoscopy Family History Family History Father Medical history unknown Mother No problems noted. Social History Social History Housing: House Are you a primary childcare administrator to a significant other at home: No Alcohol intake: current Alcohol intake frequency: 3 or more drinks per day Alcohol type: beer Patient Tobacco Use Status: Never used Tobacco e-Cigarette/Vaping Use: Never Used Second Hand Smoke Exposure: No Advance Directives: No service: No Current occupational status: unemployed Cognitive needs: No Hearing needs: No Vision needs: Yes (reading glasses) Physical Exam ED Vital Signs: Vital Signs - 24 hr 10/17/22 04:40 Temperature 98.6 F Pulse Rate 116 H Respiratory Rate 20 Blood Pressure 124/79 Pulse Oximetry 98 Oxygen Delivery Method Room Air BMI result Body Mass Index 26.1 Const General: cooperative, no acute distress, alert and awake Nutritional Appearance: well nourished Orientation/consciousness: patient oriented x3 Limitations: no limitations HENME Head: Yes normal to inspection and Yes atraumatic Ears: hearing grossly normal bilaterally and external ears normal General nose exam: Normal external nose present, no nasal discharge noted and no epistaxis Face and sinus: Yes normal facial exam, No abrasion and No laceration Mouth: Normal oral and palatal mucosa present, no drooling and no muffled voice Eyes General: appearance normal, both eyes and all related structures Periorbital: periorbital findings normal Eyelids: Yes eyelids normal Conjunctivae: conjunctivae normal Pupils: Equal, round and reactive pupils present EOM: EOMs intact bilaterally Neck Neck: Yes normal visual inspection, Yes full ROM and Yes no lymphadenopathy Chest Chest palpation & inspection: normal inspection of the chest Resp Effort & Inspection: normal respiratory effort and able to speak in complete sentences Auscultation: clear to auscultation bilaterally Cardio Rate: regular rate Rhythm: regular rhythm GI Inspection: Yes normal to inspection Palpation (GI): Soft to palpation, not firm, nontender, no guarding and not rigid Neuro General: patient oriented x3 and moves all extremities Cranial nerves: Yes Equal, round and reactive pupils present Cognition (Neuro): normal cognition Motor exam (neuro): 5/5 motor strength present throughout Sensory Exam: Normal double simultaneous stimulation for sensation Coordination: [id number] test normal Extrem General: Yes normal to inspection, Yes full ROM and Yes capillary refill normal Psych Appearance: grossly normal Mental Status: mental status grossly normal Affect: normal affect Attitude: cooperative Thought process: Normal thought process present Thought content: Normal thought content present Insight: Good insight present (Psych) Medical Decision Making Medical Decision Making MDM Narrative: Patient is a 57 year old assigned male at with a history of HTN presenting to the emergency department today with cough and nausea. Patient's physical exam was unremarkable. Patient's chest x-ray showed no acute process. Patient's COVID-19 test was positive. I explained my physical exam findings as well as all test results to the patient. I answered all questions asked by the patient. I stressed the importance of the patient taking his medication as prescribed. I stressed the importance of the patient following up with his primary care provider. I stressed the importance of the patient returning to the emergency department immediately if his symptoms were to worsen or if he were to develop any dizziness, shortness of breath, difficulty breathing, chest pain, blurry vision, loss of vision, nausea, vomiting, abdominal pain, fever, chills, back pain, or any other complaints. Patient verbalized agreement and understanding with this treatment plan and discharge. Differential Diagnosis Differential Diagnoses: The differential diagnosis associated with the presentation includes COVID-19 Lab Data [facility] Lab Attestation statement: I reviewed the patient's lab results. Labs: Lab Results 10/17/22 10/17/22 Range/Units 07:25 07:25 COVID-19 (JUDY) Positive A (Negative) COVID-19 Clin Com See Note Influenza Type A (VICK) Negative (Negative) Influenza Type B (VICK) Negative (Negative) Influenza A & B Note See Note Radiology Impression Discussion of test interpretation with radiology: I have reviewed the radiologist's reading. Radiologist Impression: EXAMINATION: XR CHEST CLINICAL INFORMATION: Cough and shortness of breath COMPARISON: 02/12/2021 TECHNIQUE: Frontal view of the chest was obtained. FINDINGS: The lungs are well expanded. There is no focal consolidation, edema, or effusion. No pneumothorax. The cardiomediastinal silhouette is within normal limits. No acute osseous abnormality. XR/XR chest 1V IMPRESSION: Clear lungs. Dictated By: Walter Bui MD Signed By: Electronically signed by Walter Bui MD 10/17/22 08 Discharge Plan Discharge Clinical Impression: COVID-19 Patient Disposition: Home, Self-Care Instructions: COVID-19 (Coronavirus Disease 2019) (ED) Additional Instructions: Follow up with your primary care provider. Return to the emergency department immediately if your symptoms worsen or if you develop any dizziness, shortness of breath, difficulty breathing, chest pain, blurry vision, loss of vision, nausea, vomiting, abdominal pain, fever, chills, back pain, or any other complaints. Prescriptions: New benzonatate 100 mg capsule 100 mg PO BID PRN (Reason: cough) 7 Days Qty: 14 0RF ondansetron 4 mg tablet,disintegrating 4 mg PO Q8H 3 Days Qty: 9 0RF No Action cholecalciferol (vitamin D3) 25 mcg (1,000 unit) tablet 25 mcg PO DAILY Qty: 90 0RF ezetimibe [Zetia] 10 mg tablet 10 mg PO DAILY 30 Days Qty: 30 3RF aspirin 81 mg tablet,delayed release (DR/EC) 81 mg PO DAILY 90 Days Qty: 90 3RF atorvastatin 80 mg tablet 80 mg PO DAILY Qty: 30 3RF metoprolol tartrate 25 mg tablet 12.5 mg PO BID Qty: 60 3RF lamotrigine 200 mg tablet 200 mg PO BEDTIME Qty: 90 2RF sertraline [Zoloft] 50 mg tablet 50 mg PO DAILY 30 Days Qty: 30 1RF clonazepam 1 mg tablet 1 mg PO DAILY PRN (Reason: panic attack(s)) 30 Days Qty: 8 0RF (DME) blood pressure monitor [Blood Pressure Kit] Kit See Rx Instructions .Route Qty: 1 0RF Rx Instructions: As directed baclofen 20 mg tablet 20 mg PO BID 15 Days Qty: 30 0RF buspirone 15 mg tablet 15 mg PO BID 30 Days Qty: 60 3RF omeprazole 40 mg capsule,delayed release(DR/EC) 40 mg PO DAILY Qty: 90 1RF thiamine HCl (vitamin B1) 100 mg tablet 100 mg PO DAILY Qty: 30 0RF Referrals: Daron Franco PA-C [Primary Care Provider] - Stand Alone Forms: Work/School Release Interventions: ED Discharge Assessment Last Done: 10/17/22 08:25 Discharge Date/Time: 10/17/22 08:25 Print Language: Mongolian
== END 2022-10-17 08:25 | disposition home or self-care (01) ==
PROVIDERS: Emergency Provider Student in an Organized Health Care Education/Training Program; PCP Physician Assistant
DX: U07.1 COVID-19 (principal); R06.02 Shortness of breath; R05.9 Cough, unspecified; Z79.899 Other long term (current) drug therapy
CPT/HCPCS: 71045; 87502; 87635; 99282; 99283

== ENCOUNTER 2023-09-02 09:49 | Outpatient (AMB) | payer BC, SELFPAY ==
[2023-09-02 09:57] VITALS: BP 116/64; PULSE 71; O2SAT 99; BMI 26.8
--- NOTE | 2023-09-02 09:57 | A.OFFPC_ITS ---
Vital Signs 09/02/23 09:57 Height 5 ft 8 in Weight 176 lb 8 oz BMI 26.8 BP 116/64 Blood Pressure Location Lt brachial Position Sitting Pulse 71 Pulse Source Pulse Oximeter Pulse Oximetry (%) 99 Oxygen Delivery Method Room Air Intake Visit Reasons: Discuss meds Waiter/Waitress Take Out Required: No Accompanied by: Self / Same As Patient Allergies diphenhydramine [From Benadryl] Allergy (Unknown, Verified 09/02/23 10:26) Unknown clonidine Adverse Reaction (Intermediate, Verified 09/02/23 10:26) Dry mouth hydroxyzine Adverse Reaction (Intermediate, Verified 09/02/23 10:26) Dizziness Medication List - Last Reconciled 09/02/23 by Daron Franco PA-C aspirin 81 mg PO DAILY 90 days atorvastatin 80 mg PO DAILY baclofen 20 mg PO BID 15 days blood pressure monitor (Blood Pressure Kit) As directed buspirone 15 mg PO BID 30 days clonazepam 1 mg PO DAILY PRN 30 days ezetimibe (Zetia) 10 mg PO DAILY 30 days inclisiran (Leqvio) 284 mg subcut [id number] lamotrigine 200 mg PO BEDTIME metoprolol tartrate 12.5 mg (1/2 x 25 mg) PO BID omeprazole 40 mg PO DAILY ondansetron 4 mg PO Q8H 3 days tadalafil 20 mg PO DAILY PRN 7 days Tobacco use date assessed: 02/04/23 Dental Screening Dental Screen Date: 09/02/23 Did you have a dental visit in the last 12 months?: No Did you have a dental problem in the last 6 months where you did not have access to dental care?: No Was dental information given to patient?: Patient has dentist HPI Discuss meds HPI Details Patient is a 58-year-old male here today for a follow-up visit. Patient's past medical history significant for coronary artery disease, hypertension, generalized anxiety disorder, alcohol use disorder. Concerns--> reports he continues to have a right upper quadrant abdominal pain and feeling of bloating. Ultrasounds of abdomen did show evidence of fatty liver disease. Of note continues to drink 6-8 beers on a daily basis which is likely contributing to his abdominal pain. He does report whenever he takes a deep breath he does feel a very tight sensation in his upper abdomen. He does have a history of a hiatal hernia thus will send for barium swallow to evaluate for worsening hiatal hernia Generalized anxiety disorder:. Has use sertraline in the past though has fears of side effects. Continues on clonazepam 1 mg daily which he reports has to best affect on his anxiety. Unfortunately continues to drink on a daily basis. Not interested in speaking with a mental health therapist or trying SSRI therapy again. .. Alcohol use disorder: does report drinking 8 Beers per day. He would like to stop drinking though is concerned about withdrawal and effectiveness of medication. Has tried naltrexone in the past which gave him dry mouth. Has spoken with workforce specialist in the past about his alcohol addiction though has never really gotten long-term sobriety. Coronary artery disease: Continues his follow-up with cardiology. Patient has been started on inj therapy to help reduce his LDL. [facility] Medical History (Updated 09/02/23 @ 10:49 by Daron Franco PA-C) Elevated bilirubin Lumbar spine pain Alcohol use disorder, mild, in early remission COVID-19 ruled out Hiatal hernia PUD (peptic ulcer disease) Insomnia STEMI (ST elevation myocardial infarction) Dyslipidemia Alcohol abuse Hypertension CAD (coronary artery disease) Surgical History Hx of colonoscopy History of esophagogastroduodenoscopy (EGD) H/O heart artery stent Family History Father Medical history unknown Mother No problems noted. 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 Jeremiah Frye, Khloe Almanza, Jesus Cheema and colleagues, with an educational cara from [employer]. Review of Systems Const Denies headache(s) Eyes Denies loss of vision ENT Denies vertigo, Denies dizziness, Denies headache(s) and Denies sore throat Card Denies chest pain, Denies leg edema and Denies lightheadedness Resp Denies cough, Denies hemoptysis and Denies wheezing GI Denies abdominal pain, Denies melena, Denies constipation, Denies diarrhea and Denies vomiting Denies dysuria, Denies urinary frequency and Denies urinary urgency Musc Denies arthralgias, Denies joint swelling, Denies numbness and Denies tingling Neuro Denies Abnormal speech present, Denies behavioral changes, Denies vertigo, Denies dizziness, Denies headache(s), Denies loss of vision, Denies memory loss, Denies numbness and Denies tingling Psych Denies anxiety, Denies behavioral changes, Denies depression, Denies memory loss and Denies panic attacks Leobardo/Lymph Denies easy bleeding and Denies easy bruising Aller/Immun Denies wheezing Physical exam (Primary Care) Vital Signs: Last Vital Signs Pulse 71 09/02/23 09:57 BP 116/64 09/02/23 09:57 Pulse Ox 99 09/02/23 09:57 Oxygen Delivery Method Room Air 09/02/23 09:57 BMI result Body Mass Index 26.8 Tobacco/Smoking Status: Tobacco use Status Tobacco use date assessed 02/04/23 09/02/23 10:00 Patient Tobacco Use Status Current someday Tobacco 09/02/23 10:00 Tobacco use type Cigarette 09/02/23 10:00 e-Cigarette/Vaping Use Never Used 09/02/23 10:00 Thrive Assessment: Date of Thrive Assessment Date Thrive assessed 02/04/23 09/02/23 10:00 Const General: healthy appearing, no acute distress, alert and awake Nutritional Appearance: well nourished Orientation/consciousness: oriented to person, oriented to place and oriented to time HENMT Ears: TM's normal bilaterally General nose exam: Normal nasal mucous membranes and turbinates present Eyes Conjunctivae: conjunctivae normal Sclerae: sclerae normal Pupils: Equal, round and reactive pupils present Neck Neck: Yes no lymphadenopathy and Yes no JVD Thyroid: Thyroid normal Carotids: no bruits Resp Effort & Inspection: normal respiratory effort and not tachypneic Auscultation: no crackles, no rales, no rhonchi and no wheezes Cardio Rate: regular rate Rhythm: regular rhythm Heart sounds: no murmurs and normal S1 and S2 GI Palpation (GI): Soft to palpation, nontender, no hepatomegaly and no splenomegaly Auscultation: normal bowel sounds Skin General skin exam: no rashes or lesions noted and dry skin Neuro General: oriented to person, oriented to place and oriented to time Cranial nerves: Yes Equal, round and reactive pupils present Speech: No Abnormal speech present Gait exam (Neuro): Normal gait present Motor exam (neuro): no tremor noted Extrem Right upper extremity: full ROM Left upper extremity: full ROM Right lower extremity: full ROM; no edema Left lower extremity: full ROM; no edema Psych Mental Status: mental status grossly normal Speech and movement: Normal speech and movement present Affect: normal affect Attitude: cooperative Thought process: Normal thought process present Office Procedures Flu Questionnaire Does the patient have a severe egg allergy?: No Does the patient have severe life threatening allergies?: No Does the patient have a fever or illness today?: No Has the patient ever had Guillain-Festus Syndrome?: No Has the patient ever had any past reaction to a flu shot?: No Immunizations flu vacc [id number] 6mos up(PF) 60 mcg(15 mcgx4)/0.5 mL IM syringe Performing Provider: Daron Franco PA-C Performing Location: [facility] Administered by: GORDON Pierson on 09/02/23 10:26 Dose Route Admin Location Dispensed Lot Number Expiration Date [facility] Warehouse Supervisor [address] Shift 0.5 mL IM Left Deltoid 0.5 mL [id number] 04/24/24 [id number] [employer] VIS Given Date VIS Provided VIS Publication Date 09/02/23 Single Vaccine 21 Eligibility Eligibility Date Funding Source Not [facility] Eligible 09/02/23 Private Assessment and Plan Assessment & Plan (1) CAD (coronary artery disease): Code(s): I25.10 - Atherosclerotic heart disease of [place] coronary artery without angina pectoris Qualifiers: Associated angina: unspecified whether angina present Coronary Disease- Associated Artery/Lesion type: unspecified vessel or lesion type [place] vs. transplanted heart: unspecified whether [place] or transplanted heart Qualified Code(s): I25.10 - Atherosclerotic heart disease of [place] coronary artery witho ut angina pectoris Plan: As above patient does have coronary artery disease, does have stent placed in his RCA in 2019. Has not followed up with his resident services supervisor. Most recent lipid panel elevated for his cardiovascular risk. He has followed up with Cardiology in a started on injectable therapy for his LDL control. Advised to repeat lipid panel (2) Alcohol use disorder, moderate, dependence: Code(s): F10.20 - Alcohol dependence, uncomplicated Plan: Unfortunately continues to drink and admits to drinking 8 beers a day. He does believe this is a problem though has been having difficulty stopping drinking. Has tried naltrexone in the past with some relief though had side effect of dry mouth. He is willing to try naltrexone again. Offered him referral to addiction medicines professionals though he declines at this time He has not sought out fellowship such as AA as he feel he does not need this. Strongly advised to try AA to help him maintain sobriety. (3) BRENDA (generalized anxiety disorder): Code(s): F41.1 - Generalized anxiety disorder Plan: Patient continues the use of clonazepam and BuSpar. Reports his anxiety has been much better since being placed back on clonazepam 1 mg daily. (4) Dysphagia: Code(s): R13.10 - Dysphagia, unspecified Qualifiers: Dysphagia type: other dysphagia Qualified Code(s): R13.19 - Other dysphagia (5) Hiatal hernia: Code(s): K44.9 - Diaphragmatic hernia without obstruction or gangrene Plan: Has a history of a hiatal hernia. Unfortunately continues to excessively drink. Does report some tightness in his upper abdomen when he takes a deep breath. Will send for barium swallow to evaluate for any worsening hiatal hernia. Orders: Orders Influenza [id number] Immunization Today Z23 - Encounter for immunization Comprehensive [place]. Panel Fast Today I25.10 - Atherosclerotic heart disease of [place] coronary artery without angina pectoris Complete Blood Count no Diff Today I25.10 - Atherosclerotic heart disease of [place] coronary artery without angina pectoris Ethanol Today F10.20 - Alcohol dependence, uncomplicated Lipid Panel Today E78.5 - Hyperlipidemia, unspecified US abdomen complete Today K70.0 - Alcoholic fatty liver [place] barium swallow Today K44.9 - Diaphragmatic hernia without obstruction or gangrene, R13.10 - Dysphagia, unspecified Prostate Specific Antigen Scr Today R13.19 - Other dysphagia, Z12.5 - Encounter for screening for malignant neoplasm of prostate Medications: New naltrexone 50 mg PO DAILY 30 tabs 3RF F10.20 - Alcohol dependence, uncomplicated hydroxyzine HCl 10 mg PO BID 30 days 60 tabs 0RF F10.20 - Alcohol dependence, uncomplicated Coding Level of Care Code Est Pt Level 4 (30383) Diagnoses Coronary artery disease, unspecified vessel or lesion type, unspecified whether angina present, unspecified whether [place] or transplanted heart I25.10 Associated angina: unspecified whether angina present Coronary Disease-Associated Artery/Lesion type: unspecified vessel or lesion type [place] vs. transplanted heart: unspecified whether [place] or transplanted heart Alcohol use disorder, moderate, dependence F10.20 BRENDA (generalized anxiety disorder) F41.1 Other dysphagia R13.19 Dysphagia type: other dysphagia Hiatal hernia K44.9
== END 2023-09-02 10:55 | disposition home or self-care (01) ==
PROVIDERS: PCP Physician Assistant; Visit Provider Physician Assistant
DX: I25.10 Atherosclerotic heart disease of native coronary artery without angina pectoris (principal); F10.20 Alcohol dependence, uncomplicated; F41.1 Generalized anxiety disorder; R13.19 Other dysphagia; K44.9 Diaphragmatic hernia without obstruction or gangrene; Z23 Encounter for immunization
CPT/HCPCS: 90471; 90686; 99214

== ENCOUNTER 2023-09-23 12:42 | Outpatient (REF) | payer BC, SELFPAY ==
[2023-09-23 14:32] LABS: Alanine Aminotransferase 38 U/L (0-40); Aspartate Amino Transferase 54 U/L (5-37); Cholesterol 98 mg/dL (<200); HDL Cholesterol 53 mg/dL (>40); LDL Cholesterol Calculated 22 mg/dL (<100); Triglycerides 117 mg/dL (<150)
== END 2023-09-23 12:43 | disposition home or self-care (01) ==
LOC: HO.LAB 12:42
PROVIDERS: Absent Provider Internal Medicine Cardiovascular Disease; PCP Physician Assistant; Visit Provider Physician Assistant
DX: E78.5 Hyperlipidemia, unspecified (principal)
CPT/HCPCS: 36415; 80061; 84450; 84460

== ENCOUNTER 2023-10-08 09:53 | Outpatient (REF) | payer BC, SELFPAY ==
--- NOTE | ~2023-10-08 | US_ITS ---
EXAMINATION: US ABDOMEN COMPLETE CLINICAL INFORMATION: Alcoholic fatty liver. COMPARISON: Ultrasound abdomen complete 11/08/2021. TECHNIQUE: Real-time imaging of the abdominal viscera. FINDINGS: PANCREAS: Visualized portions of the pancreas are unremarkable. The pancreatic tail is obscured by bowel gas. ABDOMINAL AORTA: The proximal, mid, and distal segments are normal in caliber. INFERIOR VENA CAVA: Visualized portions are normal. LIVER: The liver is normal in size. The liver contour is normal. Increased hepatic echogenicity which can be seen in the setting of hepatic steatosis or underlying liver disease. No focal hepatic lesion. There is no intrahepatic biliary duct dilatation seen. GALLBLADDER: Normal. The gallbladder is physiologically distended without evidence of stones, sludge, polyps, wall thickening or pericholecystic fluid. COMMON BILE DUCT: Normal in caliber measuring 0.3 cm in diameter. RIGHT KIDNEY: No hydronephrosis. The kidney measures 10.3 cm in maximum dimension. Subcentimeter benign-appearing renal cyst, no follow-up imaging recommended. Nonobstructing renal stone measuring 0.8 cm, previously 0.3 cm. LEFT KIDNEY: Normal. No hydronephrosis. No renal calculi or focal parenchymal lesions. The kidney measures 11.0 cm in maximum dimension. SPLEEN: Normal. The spleen measures 10.1 cm in maximum dimension. FREE FLUID: None. US/US abdomen complete IMPRESSION: 1. Increased hepatic echogenicity which can be seen in the setting of hepatic steatosis or underlying liver disease. 2. Nonobstructing right renal stone measuring 0.8 cm, increased from prior
== END 2023-10-08 09:54 | disposition home or self-care (01) ==
LOC: HO.US 09:53
PROVIDERS: PCP Physician Assistant; Visit Provider Physician Assistant
DX: K70.0 Alcoholic fatty liver (principal)
CPT/HCPCS: 76700

== ENCOUNTER 2023-11-24 09:19 | Outpatient (REF) | payer BC, SELFPAY ==
--- NOTE | ~2023-11-24 | FL_ITS ---
EXAMINATION: XR FLUOROSCOPY UPPER GI WITH AIR CLINICAL INFORMATION: Abdominal pain COMPARISON: None TECHNIQUE: Fluoroscopic air contrast upper GI examination was performed utilizing standard techniques with thin and thick barium and effervescent granules. Numerous spot images were obtained. FINDINGS: Dual and single contrast images of the esophagus demonstrate normal caliber, contour, and mucosal pattern. No evidence of stricture, mass, or ulcerations identified. Esophageal peristalsis was normal. A small type I hiatal hernia is present. No significant gastroesophageal reflux was seen during the course of the examination and on reflux views. Dual contrast and single contrast images of the stomach demonstrated severe diffuse wall thickening of the with diffuse thickened mucosal folds. The stomach is able to be distended with the effervescent granules. These findings likely represent severe gastritis. No masses or ulcers are seen. Contrast freely passed into the gastric antrum and duodenal bulb without delay. Single and air-contrast images of the duodenal bulb demonstrate no abnormality. The duodenal sweep has a normal appearance, course, and mucosal fold appearance. The imaged proximal jejunum has a normal fold pattern and caliber. FLUOROSCOPY TIME: 3 minutes 31 seconds Number of Spot Images: 7 Number of Cine: 8 DOSE AREA PRODUCT: 2539 uGy-m2 (microgray-meter squared) FL/FL barium swallow with air IMPRESSION: 1. Small type I hiatal hernia 2. Severe diffuse wall thickening of the stomach with diffuse thickened mucosal folds. This likely represents severe inflammatory gastritis, however, cannot exclude an infiltrative abnormality such as lymphoma. It remains distensible, essentially excluding linitis plastica. Recommend correlation with EGD. This procedure was performed by Carrington Robertson PA-C, and supervised by Dr. Victoria
== END 2023-11-24 09:20 | disposition home or self-care (01) ==
LOC: HO.XRAY 09:19
PROVIDERS: PCP Physician Assistant; Visit Provider Physician Assistant
DX: R13.10 Dysphagia, unspecified (principal); K44.9 Diaphragmatic hernia without obstruction or gangrene
CPT/HCPCS: 74221

== ENCOUNTER → 2023-11-24 09:19 | Outpatient (BNV) | payer BC, SELFPAY | PROVIDERS: PCP Physician Assistant; Visit Provider Radiology Diagnostic Radiology | DX: R10.9 Unspecified abdominal pain (principal) | CPT/HCPCS: 74221 ==

== ENCOUNTER 2023-12-16 10:50 | Outpatient (AMB) | payer BC, SELFPAY ==
[2023-12-16 10:59] VITALS: BP 134/80; PULSE 80; O2SAT 98; BMI 26.1
--- NOTE | 2023-12-16 10:59 | A.OFFPC_ITS ---
Vital Signs 12/16/23 10:59 Height 5 ft 8 in Weight 172 lb BMI 26.1 BP 134/80 Blood Pressure Location Lt brachial Position Sitting Pulse 80 Pulse Source Pulse Oximeter Pulse Oximetry (%) 98 Oxygen Delivery Method Room Air Intake Visit Reasons: f/u CAD/ HLD- Alcohol Clinical Nursing Director Required: No Accompanied by: Self / Same As Patient Allergies diphenhydramine [From Benadryl] Allergy (Unknown, Verified 12/16/23 11:07) Unknown clonidine Adverse Reaction (Intermediate, Verified 12/16/23 11:07) Dry mouth hydroxyzine Adverse Reaction (Intermediate, Verified 12/16/23 11:07) Dizziness naltrexone Adverse Reaction (Intermediate, Verified 12/16/23 11:15) dry mouth Medication List - Last Reconciled 12/16/23 by Daron Franco PA-C aspirin 81 mg PO DAILY 90 days atorvastatin 80 mg PO DAILY baclofen 20 mg PO BID 15 days blood pressure monitor (Blood Pressure Kit) As directed buspirone 15 mg PO BID 30 days clonazepam 1 mg PO DAILY PRN 30 days ezetimibe (Zetia) 10 mg PO DAILY 30 days hydroxyzine HCl 10 mg PO BID 30 days inclisiran (Leqvio) 284 mg subcut [id number] lamotrigine 200 mg PO BEDTIME metoprolol tartrate 12.5 mg (1/2 x 25 mg) PO BID naltrexone 50 mg PO DAILY omeprazole 40 mg PO DAILY ondansetron 4 mg PO Q8H 3 days tadalafil 20 mg PO DAILY PRN 7 days Tobacco use date assessed: 12/16/23 Dental Screening Dental Screen Date: 12/16/23 Did you have a dental visit in the last 12 months?: No Did you have a dental problem in the last 6 months where you did not have access to dental care?: No Was dental information given to patient?: Patient has dentist HPI f/u CAD/ HLD- Alcohol HPI Details Patient is a 58-year-old male here today for a follow-up visit. Patient's past medical history significant for coronary artery disease, hypertension, generalized anxiety disorder, alcohol use disorder. GI concerns: Recently sent for upper GI series that did show-->Severe diffuse wall thickening of the stomach with diffuse thickened mucosal folds. This likely represents severe inflammatory gastritis, however, cannot exclude an infiltrative abnormality such as lymphoma. It remains distensible, essentially excluding linitis plastica. Recommend correlation with EGD. Has followed up with his GI whom does not believe he needs another GED. Needs to quit drinking.. Started on Carafate. Of note continues to drink 6-8 beers on a daily basis which is likely contributing to his abdominal pain. He is interested in quitting drinking though medications to help him withdrawal have intolerable side effects. He is interested in temporarily increasing his benzodiazepine to help him with withdrawal symptoms from alcohol. Discuss with him that this should be done in a inpatient/ supervised way. Generalized anxiety disorder:. Has use sertraline in the past though has fears of side effects. Continues on clonazepam 1 mg daily which he reports has to best affect on his anxiety. Unfortunately continues to drink on a daily basis. Not interested in speaking with a mental health therapist or trying SSRI therapy again. .. Alcohol use disorder: does report drinking 8 Beers per day. He would like to stop drinking though is concerned about withdrawal and effectiveness of medication. Has tried naltrexone in the past which gave him dry mouth. Has spoken with employment specialist in the past about his alcohol addiction though has never really gotten long-term sobriety. Coronary artery disease: Continues his follow-up with cardiology. Patient has been started on inj therapy to help reduce his LDL. Most recent lipid panel showing excellent control of his total cholesterol and LDL. COUNTS INCLUDE 234 BEDS AT THE [facility] Medical History Elevated bilirubin Lumbar spine pain Alcohol use disorder, mild, in early remission COVID-19 ruled out Hiatal hernia PUD (peptic ulcer disease) Insomnia STEMI (ST elevation myocardial infarction) Dyslipidemia Alcohol abuse Hypertension CAD (coronary artery disease) Surgical History Hx of colonoscopy History of esophagogastroduodenoscopy (EGD) H/O heart artery stent Family History Father Medical history unknown Mother No problems noted. 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 1. Little interest or pleasure in doing things: not at all 2. Feeling down, depressed, or hopeless: not at all 3. Trouble falling or staying asleep, or sleeping too much: not at all 4. Feeling tired or having little energy: not at all 5. Poor appetite or overeating: not at all 6. Feeling bad about yourself - or that you are a failure or have let yourself or your family down: not at all 7. Trouble concentrating on things, such as reading the newspaper or watching television: not at all 8. Moving or speaking so slowly that other people could have noticed. Or the opposite - being so fidgety or restless that you have been moving around a lot more than usual: not at all 9. Thoughts that you would be better off or of hurting yourself in some way: not at all Total score: 0 Depression Screening Interpretation: Negative Depression Screening Done: Yes 16428 - PHQ-9 Billing: Yes Source: Developed by Drs. Jeremiah Frye, Khloe Almanza, Jesus Cheema and colleagues, with an educational cara from [employer]. Thrive Questionnaire Date Thrive assessed: 12/16/23 I am a: Patient What is your living situation today?: I have a steady place to live Within the past 12 months, did the food you bought not last and you didn't have the money to get more?: Never true Within the past 12 months, did you worry whether your food would run out before you got money to buy more?: Never true Do you have trouble paying for medicines?: No Do you have trouble getting transportation to medical appointments?: No Do you have trouble paying your heating and electricity bill?: No Do you have trouble taking care of your child, family member or friend?: No Do you have trouble with day-to-day activities such as bathing, preparing meals, shopping, managing finances, etc.?: No Are you currently unemployed and looking for a job?: No Are you interested in more education?: No Please select the resources that you would like help with: None Currently or been in a relationship where the following occur: no concerns reported THRIVE Score: 0 AUDIT C Alcohol Use Questionnaire (AUDIT-C) 1. How often do you have a drink containing alcohol?: 4 or more times a week 2. How many drinks containing alcohol do you have on a typical day when you are drinking?: 10 or more 3. How often do you have six or more drinks on one occasion?: Daily or almost daily Total Score: 12 BRENDA-7 AMB Questionnaire BRENDA-7 Date BRENDA - 7 assessed: 12/16/23 Feeling nervous, anxious, or on edge: 3 = Nearly every day Not being able to stop or control worryin = Nearly every day Worrying too much about different things: 3 = Nearly every day Trouble relaxin = Nearly every day Being so restless that it is hard to sit still: 3 = Nearly every day Becoming easily annoyed or irritable: 3 = Nearly every day Feeling afraid as if something awful might happen: 3 = Nearly every day Total BRENDA-7 score (0-4 normal; 5-9 mild; 10-14 moderate; 15-21 severe): 21 Source: Developed by Drs. Jeremiah Frye, Khloe Almanza, Jesus Cheema and colleagues, with an educational cara from [employer]. BRENDA-7 Assessment Billing BRENDA-7 Assessment Tool: BRENDA-7 Assessment 36149 Physical exam (Primary Care) Vital Signs: Last Vital Signs Pulse 80 12/16/23 10:59 BP 134/80 12/16/23 10:59 Pulse Ox 98 12/16/23 10:59 Oxygen Delivery Method Room Air 12/16/23 10:59 BMI result Body Mass Index 26.1 Tobacco/Smoking Status: Tobacco use Status Tobacco use date assessed 12/16/23 12/16/23 11:04 Patient Tobacco Use Status Current someday Tobacco 12/16/23 11:04 Tobacco use type Cigarette 12/16/23 11:04 e-Cigarette/Vaping Use Never Used 12/16/23 11:04 PHQ-9: PHQ-9 Score PHQ-9: Total score 0 12/16/23 11:08 Depression Screening Interpretation: Negative Thrive Assessment: Date of Thrive Assessment Date Thrive assessed 12/16/23 12/16/23 11:04 Currently or been in a relationship where the following occur: no concerns reported Assessment and Plan Assessment & Plan (1) CAD (coronary artery disease): Code(s): I25.10 - Atherosclerotic heart disease of [place] coronary artery without angina pectoris Qualifiers: Associated angina: unspecified whether angina present Coronary Disease- Associated Artery/Lesion type: unspecified vessel or lesion type [place] vs. transplanted heart: unspecified whether [place] or transplanted heart Qualified Code(s): I25.10 - Atherosclerotic heart disease of [place] coronary artery without angina pectoris Plan: As above patient does have coronary artery disease, does have stent placed in his RCA in 2019. Has not followed up with his typer. Most recent lipid panel elevated for his cardiovascular risk. He has followed up with Cardiology in a started on injectable therapy for his LDL control. Most recent lipid panel showing LDL 22 (2) Alcohol use disorder, moderate, dependence: Code(s): F10.20 - Alcohol dependence, uncomplicated Plan: Unfortunately continues to drink and admits to drinking 8 beers a day. He does believe this is a problem though has been having difficulty stopping drinking. Has tried naltrexone in the past with some relief though had side effect of dry mouth. He is willing to try naltrexone again. Offered him referral to addiction medicines professionals though he declines at this time He has not sought out fellowship such as AA as he feel he does not need this. Strongly advised to try AA to help him maintain sobriety. (3) BRENDA (generalized anxiety disorder): Code(s): F41.1 - Generalized anxiety disorder Plan: BRENDA-7 positive for anxiety which has been a longstanding issue for him since a young age. Has seen multiple mental health therapist and psychiatrist throughout his lifetime. Has only found that benzodiazepines have been effective for him.. Patient continues the use of clonazepam and BuSpar. Will increase his clonazepam to 1mg b.i.d. dosing for the temporary time to help him try to reduce his alcohol intake. He appreciates this and will try his heart is to stop drinking. (4) Dysphagia: Code(s): R13.10 - Dysphagia, unspecified Qualifiers: Dysphagia type: other dysphagia Qualified Code(s): R13.19 - Other dysphagia (5) Hiatal hernia: Code(s): K44.9 - Diaphragmatic hernia without obstruction or gangrene Plan: Has a history of a hiatal hernia. Unfortunately continues to excessively drink. Most recent upper GI series showing has mentions stomach. Has followed up his gastro does not believe he needs another endoscopy. Was started on Carafate pills though reports side effects to this. Will change him to liquid Carafate. Again needs to abstain from alcohol.. Medications: New sucralfate (Carafate) 10 mL PO BID 30 days 1,000 mL 1RF K21.9 - Gastro- esophageal reflux disease without esophagitis Changed From clonazepam 1 mg PO DAILY 30 days PRN 30 tabs 3RF panic attack(s) F41.1 - Generalized anxiety disorder To clonazepam 1 mg PO BID 30 days 60 tabs 1RF panic attack(s) F41.1 - Generalized anxiety disorder Coding Level of Care Code Est Pt Level 4 (37149) Diagnoses Coronary artery disease, unspecified vessel or lesion type, unspecified whether angina present, unspecified whether [place] or transplanted heart I25.10 Associated angina: unspecified whether angina present Coronary Disease-Associated Artery/Lesion type: unspecified vessel or lesion type [place] vs. transplanted heart: unspecified whether [place] or transplanted heart Alcohol use disorder, moderate, dependence F10.20 BRENDA (generalized anxiety disorder) F41.1 Other dysphagia R13.19 Dysphagia type: other dysphagia Hiatal hernia K44.9 Additional Codes BRENDA-7 Assessment Billing - BRENDA-7 Assessment Tool: BRENDA-7 Assessment 32062 ([id number])
== END 2023-12-16 11:34 | disposition home or self-care (01) ==
PROVIDERS: PCP Physician Assistant; Visit Provider Physician Assistant
DX: I25.10 Atherosclerotic heart disease of native coronary artery without angina pectoris (principal); F10.20 Alcohol dependence, uncomplicated; F41.1 Generalized anxiety disorder; R13.19 Other dysphagia; K44.9 Diaphragmatic hernia without obstruction or gangrene
CPT/HCPCS: 99214

== ENCOUNTER 2024-01-05 12:01 | Emergency (ER) | payer BC, SELFPAY ==
--- NOTE | ~2024-01-05 | CT_ITS ---
EXAMINATION: CT ABDOMEN AND PELVIS WITH CONTRAST CLINICAL INFORMATION: Left lower quadrant abdominal pain. COMPARISON: CT abdomen and pelvis from 02/12/2021. TECHNIQUE: Multidetector volumetric images were obtained from the superior aspect of the liver through the pubic symphysis following administration 85 mL of Omnipaque 350 intravenous contrast. Sagittal and coronal reformatted images were obtained on the technologist's workstation. Oral contrast: No This CT examination was performed using dose optimization techniques as appropriate, variously including the following: *Automated exposure control *Adjustment of mA and/or kV according to patient size (this includes techniques or standardized protocols for targeted exams where dose is matched to indication/reason for exam; i.e. extremities or head) *Use of iterative reconstruction technique DLP: 537 mGy-cm FINDINGS: LUNG BASES: No pulmonary consolidation or pleural effusion. HEPATOBILIARY: Again noted is diffuse hepatic steatosis. Gallbladder has a normal appearance. No radiopaque stones, wall thickening or pericholecystic fluid. No dilated bile ducts. PANCREAS: No edema, pancreatic ductal dilatation or mass. SPLEEN: Normal. ADRENAL GLANDS: Normal. KIDNEYS AND URETERS: Kidneys are normal in size and enhance symmetrically. No hydronephrosis. 1.2 cm simple cyst of the medial lower pole of the right kidney. No imaging follow-up recommended. There are several small (2 mm and 3 mm) calcified stones of both kidneys. The ureters are unremarkable. BLADDER: Normal. No calculi or wall thickening. BOWEL AND PERITONEUM: The stomach is underdistended and otherwise unremarkable. No dilated bowel loops. The appendix is normal. There are diverticula of the sigmoid colon without evidence of diverticulitis. No abdominal free fluid or free air. ABDOMINAL WALL: Unremarkable. VASCULATURE: Mild atherosclerosis of the abdominal aorta without aneurysm. Inferior vena cava is normal. LYMPH NODES: No pathologic sized lymph nodes in the abdomen or pelvis. No inguinal lymphadenopathy. PELVIC VISCERA: Prostate gland is unremarkable. No pelvic mass or free fluid. MUSCULOSKELETAL: No acute or suspicious osseous abnormality. CT/CT abdomen pelvis w IV con IMPRESSION: * No specific source of left lower quadrant pain is identified. * There are diverticula of the sigmoid colon without evidence of diverticulitis. * Bilateral nephrolithiasis without hydronephrosis. * Diffuse hepatic steatosis.
[2024-01-05 12:27] VITALS: BP 118/84; PULSE 72; O2SAT 97
[2024-01-05 12:34] VITALS: BP 114/75; PULSE 76; RESP 16; TEMP 37.3; O2SAT 97
[2024-01-05 12:37] VITALS: BP 114/75; PULSE 76; RESP 16; TEMP 37.3; O2SAT 97; BMI 25.8
--- NOTE | 2024-01-05 12:51 | ECG_ITS ---
Test Reason : epigastric pain Blood Pressure : / mmHG Vent. Rate : 073 BPM Atrial Rate : 073 BPM P-R Int : 140 ms QRS Dur : 090 ms QT Int : 382 ms P-R-T Axes : 014 013 -04 degrees QTc Int : 420 ms Normal sinus rhythm Normal ECG When compared with ECG of 01-APR-2021 05:10, No significant change was found Referred By: Reji Mariee Electronically Signed By:SIMA CARRERA MD
--- NOTE | 2024-01-05 12:53 | ED_ITS ---
HPI - General Adult General Chief complaint: Abdominal Pain Stated complaint: ABD PAIN,N/V/D PER EMS Time Seen by Provider: 01/05/24 12:44 Source: patient Limitations: no limitations History of Present Illness HPI narrative: 58 years old with history of GERD, anxiety, alcohol use disorder, liver steatosis, presents emergency room for abdominal pain. Patient reports that the pain started around 5:00 a.m. and that has been constant since, initially localized in epigastric and right upper quadrant area but now diffuse. Patient reports that he is also having several episodes of watery, nonbloody diarrhea. Patient reports nausea but no episodes of vomiting. Reports that he was recently diagnosed with fatty liver hours and that he is last endoscopy was 5 years ago and that he thinks everything was normal. Patient also underwent recent barium swallowing study but he does not know the results. He denies chills or fever Denies chest pain, shortness of breath or cough. No recent trauma. Denies headache, blurry vision or slurred speech No urinary symptoms Related Data Home Medications Medication Instructions Recorded Confirmed inclisiran 284 mg/1.5 mL 284 mg subcut [id number] 09/02/23 12/16/23 subcutaneous syringe (Leqvio) metoprolol tartrate 25 mg tablet 12.5 mg PO BID 01/05/24 sucralfate 1 gram tablet 1 g PO QID 01/05/24 Previous Rx's Medication Instructions Recorded blood pressure monitor (Blood #1 ea 08/06/21 Pressure Kit) buspirone 15 mg tablet 15 mg PO BID 30 days #60 tabs 08/27/22 aspirin 81 mg tablet,delayed 81 mg PO DAILY 90 days #90 tabs 12/18/22 release baclofen 20 mg tablet 20 mg PO BID pain (scale score 12/18/22 7-10) 15 days #30 tabs lamotrigine 200 mg tablet 200 mg PO BEDTIME #90 tabs 12/18/22 ondansetron 4 mg disintegrating 4 mg PO Q8H 3 days #9 tabs 01/19/23 tablet omeprazole 40 mg capsule,delayed 40 mg PO DAILY #90 caps 08/14/23 release hydroxyzine HCl 10 mg tablet 10 mg PO BID 30 days #60 tabs 09/02/23 naltrexone 50 mg tablet 50 mg PO DAILY #30 tabs 11/08/23 atorvastatin 80 mg tablet 80 mg PO DAILY #30 tabs 09/29/23 ezetimibe 10 mg tablet (Zetia) 10 mg PO DAILY 30 days #30 tabs 09/29/23 clonazepam 1 mg tablet 1 mg PO BID panic attack(s) 30 12/16/23 days #60 tabs tadalafil 20 mg tablet 20 mg PO DAILY PRN sexual activity 12/21/23 7 days #7 tabs ondansetron 4 mg disintegrating 4 mg PO Q8H PRN nausea and 01/05/24 tablet vomiting #14 tabs Allergies Allergy/AdvReac Type Severity Reaction Status Date / Time diphenhydramine Allergy Unknown Unknown Verified 12/16/23 11:07 [From Benadryl] clonidine AdvReac Intermediate Dry mouth Verified 12/16/23 11:07 hydroxyzine AdvReac Intermediate Dizziness Verified 12/16/23 11:07 naltrexone AdvReac Intermediate dry mouth Verified 12/16/23 11:15 Review of Systems 2 Review of Systems: Yes all other systems are reviewed and are negative PMFSH Past Medical History Medical History Elevated bilirubin Lumbar spine pain Alcohol use disorder, mild, in early remission COVID-19 ruled out Hiatal hernia PUD (peptic ulcer disease) Insomnia STEMI (ST elevation myocardial infarction) Dyslipidemia Alcohol abuse Hypertension CAD (coronary artery disease) Surgical History Hx of colonoscopy History of esophagogastroduodenoscopy (EGD) H/O heart artery stent Family History Family History Father Medical history unknown Mother No problems noted. 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) Cognitive needs: No Hearing needs: No Vision needs: Yes (reading glasses) Physical Exam ED Vital Signs: Vital Signs - 24 hr 01/05/24 12:34 01/05/24 12:37 01/05/24 14:40 Temperature 99.1 F 99.1 F 98.9 F Pulse Rate 76 76 79 Respiratory Rate 16 16 16 Blood Pressure 114/75 114/75 119/64 Pulse Oximetry 97 97 97 Oxygen Delivery Method Room Air Room Air Room Air 01/05/24 16:10 Temperature 99.9 F Pulse Rate 73 Respiratory Rate 18 Blood Pressure 118/68 Pulse Oximetry 96 Oxygen Delivery Method Room Air BMI result Body Mass Index 25.8 General: Alert, Not in Distress Skin: No rash, warm HEENT: Atraumatic, No Exudate or Pharyngeal Erythema Resp: Normal Breath sounds bilaterally Cardio: Regular rate and Rhythm, Normal S1, S2 ABD: Abd soft, mildly tender in epigastric area , no guarding or rebound. increased Bowel sounds. : No cva tenderness Neuro: Alert, oriented x4, PERRL Strenght 5/5 on all extremities Sensation is preserved in both lower and upper extremities Index to nose: normal Cranial Nerves II-XII grossly intact No dysarthria, or aphasia No neglet. Visual jacome are normal bilaterally Psych: Cooperative, NO SI Course Reevaluation(s) Reevaluation #1: Personally reviewed the patient CT scan which may be consistent with small-bowel obstruction. Formal report is pending. Patient's symptoms are well controlled at this time. Time: 15:08 Reevaluation #2: Patient's imaging was unremarkable for small-bowel obstruction. Patient still has nausea and abdominal pain however considering the negative CT at this time I do not think he requires admission or further observation. His symptoms may be consistent with gastritis as well as viral syndrome. Considering his lab work that showed a drop in hemoglobin rectal exam was performed with was negative for FOBT. I recommended the patient to go home use Zofran for nausea and to continue PPI. I recommended for him to return to the emergency room in case his pain worsen he understands and agrees with plan he also understands that he has a follow-up with primary care physician in 1 or 2 days if symptoms do not improve. Time: 17:56 Medications Administered Discontinued Medications Generic Name Dose Route Start Last Admin Trade Name Getachew PRN Reason Stop Dose Admin Acetaminophen 975 mg 01/05/24 12:51 01/05/24 13:54 Acetaminophen 325 Mg Tablet PO 01/05/24 12:52 975 mg ONCE ONE Administration Famotidine 20 mg 01/05/24 17:36 01/05/24 17:53 Famotidine/Pf 20 Mg/2 Ml Vial IVPUSH 01/05/24 17:37 20 mg ONCE ONE Administration Sodium Chloride 500 mls @ 999 mls/hr 01/05/24 13:00 01/05/24 14:55 Ns IV 01/05/24 13:30 Infused .Q31M COLTEN Infusion Iohexol 100 ml 01/05/24 14:31 01/05/24 14:31 Iohexol 350 Mg/Ml 100 Ml Infus..Btl IV 01/05/24 14:32 85 ml ONCE ONE Administration Metoclopramide HCl 10 mg 01/05/24 17:36 01/05/24 17:53 Metoclopramide Hcl 10 Mg/2 Ml Vial IVPUSH 01/05/24 17:37 10 mg ONCE ONE Administration Ondansetron HCl 4 mg 01/05/24 12:51 01/05/24 13:55 Ondansetron Hcl 4 Mg/2 Ml Vial IVPUSH 01/05/24 12:52 4 mg ONCE ONE Administration Medical Decision Making Medical Decision Making [facility] Narrative: Patient presented to the emergency room for abdominal pain. Possible differential diagnosis include gastritis, viral syndrome, pancreatitis, cholecystitis/biliary colic. Less likely SBO I have low suspicion for bowel ischemia at this time. Plan IV fluids Analgesia Zofran CBC, LFTs, BMP, lipase Lactic acid CT abdomen. EKG Admission/Observation Consideration of admission/observation: Escalation of care including admission/observation considered Lab Data [facility] Lab Attestation statement: I reviewed the patient's lab results. Unremarkable blood work 01/05/24 13:18 01/05/24 13:18 Labs: Lab Results 01/05/24 Range/Units 13:18 WBC 8.5 (4.8-10.8) X10*3/uL RBC 4.71 (4.60-5.80) X10*6/uL Hgb 11.3 L D (14.0-18.0) g/dl Hct 36.8 L (42.0-52.0) % MCV 78.1 L (80.0-98.0) fL MCH 24.0 L (27.0-33.0) pg MCHC 30.7 L (31.0-36.0) g/dl RDW 17.2 H (11.0-16.0) % Plt Count 280 (160-400) X10*3/uL MPV 9.0 L (9.4-12.4) fL Immature Gran % (Auto) 0.4 (0.0-0.4) % Neut % (Auto) 92.2 H (45-73) % Lymph % (Auto) 2.7 L (20-40) % Price % (Auto) 3.3 (2-11) % Eos % (Auto) 1.2 (0-4) % Baso % (Auto) 0.2 (0-2) % Lymph # (Auto) 0.2 L (1.2-4.9) X10*3/uL Price # (Auto) 0.3 (0.1-1.2) X10*3/uL Eos # (Auto) 0.1 (0.0-0.4) X10*3/uL Baso # (Auto) 0.0 (0.0-0.2) X10*3/uL Abs Immat Gran (auto) 0.03 (0.00-0.03) X10*3/uL Absolute Neuts (auto) 7.9 (2.0-8.3) x10*3/uL Absolute Nucleated RBC 0.000 (0.0-0.012) X10*3/uL Nucleated RBC % (auto) 0.0 (0.0-0.2) /100WBC Smear Tech's Comments VERIFIED Sodium 140 (135-145) mmol/L Potassium 4.4 (3.3-5.1) mmol/L Chloride 110 H (96-108) mmol/L Carbon Dioxide 22 (22-29) mmol/L Anion Gap 12 (12-20) BUN 16 (9-16) mg/dL Creatinine 0.93 (0.5-1.4) mg/dL Estim Creat Clear Calc 84.7 Estimated GFR > 60 Random Glucose 107 (60-115) mg/dL Lactic Acid 1.0 (0.5-2.0) mmol/L Calcium 9.8 (8.4-10.2) mg/dL Total Bilirubin 0.8 (0.0-1.0) mg/dL Direct Bilirubin 0.4 (0.0-0.5) mg/dL AST 43 H (5-37) U/L ALT 39 (0-40) U/L Alkaline Phosphatase 95 (39-117) U/L Total Protein 8.3 H (6.5-8.0) g/dL Albumin 4.9 (3.5-5.0) g/dL Lipase 28 (8-78) U/L Ethyl Alcohol < 10 mg/dL Independent Interpretation I performed an independent interpretation of an: EKG, Ultrasound (Bedside ultrasound showed normal gallbladder and normal size aorta no intra-abdominal fluid) and CT Scan (* No specific source of left lower quadrant pain is identified. * There are diverticula of the sigmoid colon without evidence of diverticulitis. * Bilateral nephrolithiasis without hydronephrosis. * Diffuse hepatic steatosis.) Radiology Impression Discussion of test interpretation with radiology: I have reviewed the radiologist's reading. External Record Review External record reviewed: Prior outpatient labs Discharge Plan Discharge Clinical Impression: Gastritis Patient Disposition: Home, Self-Care Instructions: Gastritis (DC) Additional Instructions: You were seen emergency room for abdominal pain, nausea and diarrhea. The CT scan of your abdomen did not show any small bowel obstruction and at this time it is possible that your symptoms is a combination of gastritis likely worsened by alcohol and viral syndrome. At home for nausea we recommend using Zofran 4 mg every 8 hours (prescription sent to her pharmacy You can also use Maalox as well as Tylenol 1 g every 8 hours. Continue use omeprazole. Return to the emergency room if your symptoms worsen or if he develops fever or if you are unable to tolerate p.o., or if you see bloody stools or black stools. Otherwise follow-up with your primary care physician in 1 or 2 days. Prescriptions: New ondansetron 4 mg tablet,disintegrating 4 mg PO Q8H PRN (Reason: nausea and vomiting) Qty: 14 0RF No Action aspirin 81 mg tablet,delayed release (DR/EC) 81 mg PO DAILY 90 Days Qty: 90 3RF baclofen 20 mg tablet 20 mg PO BID 15 Days Qty: 30 0RF lamotrigine 200 mg tablet 200 mg PO BEDTIME Qty: 90 2RF ondansetron 4 mg tablet,disintegrating 4 mg PO Q8H 3 Days Qty: 9 0RF omeprazole 40 mg capsule,delayed release(DR/EC) 40 mg PO DAILY Qty: 90 1RF atorvastatin 80 mg tablet 80 mg PO DAILY Qty: 30 3RF ezetimibe [Zetia] 10 mg tablet 10 mg PO DAILY 30 Days Qty: 30 3RF tadalafil 20 mg tablet 20 mg PO DAILY PRN (Reason: sexual activity) 7 Days Qty: 7 0RF sucralfate 1 gram tablet 1 g PO QID metoprolol tartrate 25 mg tablet 12.5 mg PO BID (DME) blood pressure monitor [Blood Pressure Kit] Kit See Rx Instructions .Route Qty: 1 0RF Rx Instructions: As directed buspirone 15 mg tablet 15 mg PO BID 30 Days Qty: 60 3RF Leqvio 284 mg/1.5 mL syringe 284 mg subcut [id number] naltrexone 50 mg tablet 50 mg PO DAILY Qty: 30 3RF hydroxyzine HCl 10 mg tablet 10 mg PO BID 30 Days Qty: 60 0RF clonazepam 1 mg tablet 1 mg PO BID 30 Days Qty: 60 1RF Stand Alone Forms: Work/School Release
[2024-01-05 13:34] LABS: Basophils Percent Auto 0.2 % (0-2); Eosinophils Absolute Auto 0.1 X10*3/uL (0.0-0.4); Eosinophils Percent Auto 1.2 % (0-4); Hematocrit 36.8 % (42.0-52.0); Imm Gran Abs Auto 0.03 X10*3/uL (0.00-0.03); Imm Gran Pct Auto 0.4 % (0.0-0.4); Lymphocytes Absolute Auto 0.2 X10*3/uL (1.2-4.9); Lymphocytes Percent Auto 2.7 % (20-40); MANUAL DIFF FLAG SCAN; Mean Corpuscular HGB Conc 30.7 g/dl (31.0-36.0); Mean Corpuscular Volume 78.1 fL (80.0-98.0); Monocytes Absolute Auto 0.3 X10*3/uL (0.1-1.2); Monocytes Percent Auto 3.3 % (2-11); Neutrophils Absolute Auto 7.9 x10*3/uL (2.0-8.3); Neutrophils Percent Auto 92.2 % (45-73); Platelet Count 280 X10*3/uL (160-400); Red Blood Count 4.71 X10*6/uL (4.60-5.80); Red Cell Distribution Width 17.2 % (11.0-16.0); SCAN SMEAR FLAG 1; White Blood Count 8.5 X10*3/uL (4.8-10.8)
[2024-01-05 13:38] LABS: Alanine Aminotransferase 39 U/L (0-40); Albumin Level 4.9 g/dL (3.5-5.0); Alkaline Phosphatase 95 U/L (39-117); Anion Gap 12 (12-20); Aspartate Amino Transferase 43 U/L (5-37); Bilirubin Direct 0.4 mg/dL (0.0-0.5); Bilirubin Total 0.8 mg/dL (0.0-1.0); Blood Urea Nitrogen 16 mg/dL (9-16); Calcium 9.8 mg/dL (8.4-10.2); Carbon Dioxide 22 mmol/L (22-29); Chloride 110 mmol/L (96-108); Creatinine Clr Calc Pharmacy 84.7; Estimated Glomerular Filt Rate > 60; Glucose Random 107 mg/dL (60-115); Lipase 28 U/L (8-78); Potassium 4.4 mmol/L (3.3-5.1); Sodium 140 mmol/L (135-145); Total Protein 8.3 g/dL (6.5-8.0)
[2024-01-05 13:41] LABS: Hemoglobin 11.3 g/dl (14.0-18.0)
[2024-01-05 13:42] LABS: Ethanol < 10 mg/dL
[2024-01-05 13:47] LABS: SLIDE REVIEW VERIFIED
[2024-01-05] MEDS: 0.9 % Sodium Chloride 500 ML 999 ML IV (13:54)
[2024-01-05] MEDS: Acetaminophen 325 MG TABLET 975 MG PO (13:54)
[2024-01-05] MEDS: ondansetron HCL 4 MG/2 ML VIAL IVPUSH (13:55)
[2024-01-05] MEDS: iohexoL 350 MG/ML 100 ML INFUS..BTL IV (14:31)
[2024-01-05 14:40] VITALS: BP 119/64; PULSE 79; RESP 16; TEMP 37.2; O2SAT 97
[2024-01-05 16:10] VITALS: BP 118/68; PULSE 73; RESP 18; TEMP 37.7; O2SAT 96
--- NOTE | 2024-01-05 16:12 | PC.NURSE ---
pt is alert and oriented, skin pwd, respirations even and unlabored, pt reports all over abd pain with nausea/vomiting/diarrhea, pt reports daily drinking about 8 beers a day, last drink was last night around 1999, no visible tremor at this time, ciwa perfomed and scored 2/10, vs stable
[2024-01-05] MEDS: Metoclopramide HCl 10 MG/2 ML VIAL IVPUSH (17:53)
[2024-01-05] MEDS: Famotidine/PF 20 MG/2 ML VIAL IVPUSH (17:53)
--- NOTE | 2024-01-05 17:55 | PC.NURSE ---
chaperoned the provider during a rectal exam, pt tolerated the procedure well
== END 2024-01-05 18:40 | disposition home or self-care (01) ==
PROVIDERS: Emergency Provider Student in an Organized Health Care Education/Training Program; PCP Physician Assistant
DX: R10.13 Epigastric pain (principal); R11.2 Nausea with vomiting, unspecified; R47.81 Slurred speech; R10.11 Right upper quadrant pain; Z79.899 Other long term (current) drug therapy
CPT/HCPCS: 36415; 74177; 80048; 80076; 80307; 83605; 83690; 85025; 93005; 96361; 96374; 96375; 99284; 99285; J2405; J2765; Q9967

== ENCOUNTER → 2024-01-05 12:51 | Outpatient (BNV) | payer BC, SELFPAY | PROVIDERS: Emergency Provider Student in an Organized Health Care Education/Training Program; PCP Physician Assistant; Visit Provider Internal Medicine Cardiovascular Disease | DX: R10.13 Epigastric pain (principal) | CPT/HCPCS: 93010 ==

== ENCOUNTER 2024-11-23 11:36 | Outpatient (AMB) | payer BC, SELFPAY ==
--- NOTE | 2024-11-23 11:56 | A.OFFPC_ITS ---
Vital Signs 3 11/23/24 12:01 Height 5 ft 8 in Weight 166 lb 2 oz BMI 25.3 BP 140/84 H Blood Pressure Location Lt brachial Position Sitting Pulse 76 Pulse Source Pulse Oximeter Temp 97.3 F Temp Source Temporal Artery Scan Pulse Oximetry (%) 96 Oxygen Delivery Method Room Air Intake Visit Reasons: MED f/u Cipher Expert Required: No Accompanied by: Self / Same As Patient Allergies diphenhydramine [From Benadryl] Allergy (Unknown, Verified 11/23/24 11:58) Unknown clonidine Adverse Reaction (Intermediate, Verified 11/23/24 11:58) Dry mouth hydroxyzine Adverse Reaction (Intermediate, Verified 11/23/24 11:58) Dizziness naltrexone Adverse Reaction (Intermediate, Verified 11/23/24 11:58) dry mouth Tobacco use date assessed: 12/16/23 Dental Screening Dental Screen Date: 12/16/23 HPI MED f/u 2 HPI0 Details Patient is a 59-year-old male here today for a follow-up visit. Patient's past medical history significant for coronary artery disease, hypertension, generalized anxiety disorder, alcohol use disorder. GI concerns: Continues to have right upper quadrant abdominal pain and distention . Has evaluation for this in the past and did show an enlarged liver likely secondary to his alcohol intake Has been using GI medications including dicyclomine omeprazole, ondansetron without any significant relief. She reports that Klonopin does help him with his abdominal pain Of note continues to drink 6-8 beers on a daily basis which is likely contributing to his abdominal pain. Has been drinking a bit more since his a month ago. He now has no interest in reducing his drinking. Discussed he likely would need inpatient detox for proper monitoring for alcohol withdrawal. Generalized anxiety disorder:. Has use sertraline in the past though has fears of side effects. Continues on clonazepam 1 mg daily which he reports has to best affect on his anxiety. Unfortunately continues to drink on a daily basis. Not interested in speaking with a mental health therapist or trying SSRI therapy again. .. Alcohol use disorder: does report drinking 8 Beers per day. He would like to stop drinking though is concerned about withdrawal and effectiveness of medication. Has tried naltrexone in the past which gave him dry mouth. Has spoken with credit administration specialist in the past about his alcohol addiction though has never really gotten long-term sobriety. Coronary artery disease: Continues his follow-up with cardiology. Patient has been recommended his shafting cleaner to start injection therapy to help reduce his LDL. Unfortunately has been much too expensive for him. [facility] Medical History Elevated bilirubin Lumbar spine pain Alcohol use disorder, mild, in early remission COVID-19 ruled out Hiatal hernia PUD (peptic ulcer disease) Insomnia STEMI (ST elevation myocardial infarction) Dyslipidemia Alcohol abuse Hypertension CAD (coronary artery disease) Surgical History Hx of colonoscopy History of esophagogastroduodenoscopy (EGD) H/O heart artery stent Family History Father Medical history unknown Mother No problems noted. Social History Housing: House Are you a primary career services director to a significant other at home: No Alcohol intake: current Alcohol intake frequency: 3 or more drinks per day Alcohol type: beer Patient Tobacco Use Status: Current someday Tobacco user Tobacco use type: Cigarette e-Cigarette/Vaping Use: Never Used Second Hand Smoke Exposure: No service: No Current occupational status: employed Cognitive needs: No Hearing needs: No Vision needs: Yes (reading glasses) Questionnaire PHQ-9 Over the last 2 weeks, how often have you been bothered by any of the following problems? 1. Little interest or pleasure in doing things: not at all 2. Feeling down, depressed, or hopeless: nearly every day 3. Trouble falling or staying asleep, or sleeping too much: nearly every day 4. Feeling tired or having little energy: nearly every day 5. Poor appetite or overeating: nearly every day 6. Feeling bad about yourself - or that you are a failure or have let yourself or your family down: nearly every day 7. Trouble concentrating on things, such as reading the newspaper or watching television: nearly every day 8. Moving or speaking so slowly that other people could have noticed. Or the opposite - being so fidgety or restless that you have been moving around a lot more than usual: not at all 9. Thoughts that you would be better off or of hurting yourself in some way: not at all Total score: 18 Depression Screening Interpretation: Positive Depression Screening Follow-up: Existing condition and Declines treatment Depression Screening Done: Yes 85313 - PHQ-9 Billing: Yes Source: Developed by Drs. Jeremiah Frye, Khloe Almanza, Jesus Cheema and colleagues, with an educational cara from [employer]. Thrive Questionnaire Date Thrive assessed: 11/23/24 I am a: Patient What is your living situation today?: I have a steady place to live Within the past 12 months, did the food you bought not last and you didn't have the money to get more?: Never true Within the past 12 months, did you worry whether your food would run out before you got money to buy more?: Never true Do you have trouble paying for medicines?: No Do you have trouble getting transportation to medical appointments?: No Do you have trouble paying your heating and electricity bill?: No Do you have trouble taking care of your child, family member or friend?: No Do you have trouble with day-to-day activities such as bathing, preparing meals, shopping, managing finances, etc.?: No Are you currently unemployed and looking for a job?: No Are you interested in more education?: No Please select the resources that you would like help with: None Currently or been in a relationship where the following occur: No concerns reported THRIVE Score: 0 AUDIT C Alcohol Use Questionnaire (AUDIT-C) 1. How often do you have a drink containing alcohol?: 4 or more times a week 2. How many drinks containing alcohol do you have on a typical day when you are drinking?: 10 or more 3. How often do you have six or more drinks on one occasion?: Daily or almost daily Total Score: 12 BRENDA-7 AMB Questionnaire BRENDA-7 Date BRENDA - 7 assessed: 11/23/24 Feeling nervous, anxious, or on edge: 3 = Nearly every day Not being able to stop or control worryin = Nearly every day Worrying too much about different things: 3 = Nearly every day Trouble relaxin = Nearly every day Being so restless that it is hard to sit still: 3 = Nearly every day Becoming easily annoyed or irritable: 3 = Nearly every day Feeling afraid as if something awful might happen: 3 = Nearly every day Total BRENDA-7 score (0-4 normal; 5-9 mild; 10-14 moderate; 15-21 severe): 21 Source: Developed by Drs. Jeremiah Frye, Khloe Almanza, Jesus Cheema and colleagues, with an educational cara from [employer]. BRENDA-7 Assessment Billing BRENDA-7 Assessment Tool: BRENDA-7 Assessment 64988 Review of Systems Const Denies headache(s) Eyes Denies loss of vision ENT Denies vertigo, Denies dizziness, Denies headache(s) and Denies sore throat Card Denies chest pain, Denies leg edema and Denies lightheadedness Resp Denies cough, Denies hemoptysis and Denies wheezing GI Reports abdominal pain, Denies melena, Denies constipation, Reports GI cramping, Reports heartburn, Denies diarrhea and Denies vomiting Denies dysuria, Denies urinary frequency and Denies urinary urgency Musc Denies arthralgias, Denies joint swelling, Denies numbness and Denies tingling Neuro Denies Abnormal speech present, Denies behavioral changes, Denies vertigo, Denies dizziness, Denies headache(s), Denies loss of vision, Denies memory loss, Denies numbness and Denies tingling Psych Denies anxiety, Denies behavioral changes, Denies depression, Denies memory loss and Denies panic attacks Leobardo/Lymph Denies easy bleeding and Denies easy bruising Aller/Immun Denies wheezing Physical exam (Primary Care) Vital Signs: Last Vital Signs Temp 97.3 F 11/23/24 12:01 Pulse 76 11/23/24 12:01 BP 140/84 H 11/23/24 12:01 Pulse Ox 96 11/23/24 12:01 Oxygen Delivery Method Room Air 11/23/24 12:01 BMI result Body Mass Index 25.3 Tobacco/Smoking Status: Tobacco use Status Tobacco use date assessed 12/16/23 11/23/24 11:56 Patient Tobacco Use Status Current someday Tobacco 11/23/24 11:56 Tobacco use type Cigarette 11/23/24 11:56 e-Cigarette/Vaping Use Never Used 11/23/24 11:56 PHQ-9: PHQ-9 Score PHQ-9: Total score 18 11/23/24 14:52 Depression Screening Interpretation: Positive Depression Screening Follow-up: Existing condition and Declines treatment Thrive Assessment: Date of Thrive Assessment Date Thrive assessed 11/23/24 11/23/24 12:00 Currently or been in a relationship where the following occur: No concerns reported Const General: healthy appearing, no acute distress, alert and awake Nutritional Appearance: well nourished Orientation/consciousness: oriented to person, oriented to place and oriented to time HENMT Ears: TM's normal bilaterally General nose exam: Normal nasal mucous membranes and turbinates present Eyes Conjunctivae: conjunctivae normal Sclerae: sclerae normal Pupils: Equal, round and reactive pupils present Neck Neck: Yes no lymphadenopathy and Yes no JVD Thyroid: Thyroid normal Carotids: no bruits Resp Effort & Inspection: normal respiratory effort and not tachypneic Auscultation: no crackles, no rales, no rhonchi and no wheezes Cardio Rate: regular rate Rhythm: regular rhythm Heart sounds: no murmurs and normal S1 and S2 GI Palpation (GI): Soft to palpation, Tenderness to palpation present (GI) in the RUQ, no hepatomegaly and no splenomegaly Auscultation: normal bowel sounds Abdomen image: 2 1. SOME TENDERNESS TO DEEP PALPATION OVER THE RIGHT UPPER ABDOMINAL QUADRANT. Skin General skin exam: no rashes or lesions noted and dry skin Neuro General: oriented to person, oriented to place and oriented to time Cranial nerves: Yes Equal, round and reactive pupils present Speech: No Abnormal speech present Gait exam (Neuro): Normal gait present Motor exam (neuro): no tremor noted Extrem Right upper extremity: full ROM Left upper extremity: full ROM Right lower extremity: full ROM; no edema Left lower extremity: full ROM; no edema Psych Mental Status: mental status grossly normal Speech and movement: Normal speech and movement present Affect: normal affect Attitude: cooperative Thought process: Normal thought process present Coding Level of Care Code Est Pt Level 4 (20605) Diagnoses Primary hypertension I10 Hypertension type: primary hypertension Coronary artery disease, unspecified vessel or lesion type, unspecified whether angina present, unspecified whether [place] or transplanted heart I25.10 Associated angina: unspecified whether angina present Coronary Disease-Associated Artery/Lesion type: unspecified vessel or lesion type [place] vs. transplanted heart: unspecified whether [place] or transplanted heart Moderate episode of recurrent major depressive disorder F33.1 Active/Remission status: currently active Major depression episode severity: moderate Major depression recurrence: recurrent Alcohol use disorder, moderate, dependence F10.20 RUQ pain R10.11 BRENDA (generalized anxiety disorder) F41.1 Additional Codes BRENDA-7 Assessment Billing - BRENDA-7 Assessment Tool: BRENDA-7 Assessment 33822 ([id number]) PHQ-9 - 84943 - PHQ-9 Billing: Yes ([id number]) Assessment & Plan Assessment & Plan (1) HTN (hypertension): Code(s): I10 - Essential (primary) hypertension Category: Medical Qualifiers: Hypertension type: primary hypertension Qualified Code(s): I10 - Essential (primary) hypertension Plan: Patient's blood pressure acceptable today in office. Will continue his current dose of antihypertensive medication with goal blood pressure to be below 140/90 (2) CAD (coronary artery disease): Code(s): I25.10 - Atherosclerotic heart disease of [place] coronary artery without angina pectoris Category: Medical Qualifiers: Associated angina: unspecified whether angina present Coronary Disease- Associated Artery/Lesion type: unspecified vessel or lesion type [place] vs. transplanted heart: unspecified whether [place] or transplanted heart Qualified Code(s): I25.10 - Atherosclerotic heart disease of [place] coronary artery without angina pectoris Plan: Patient was followed by Cardiology and is planning on reestablishing. He is on highest dose of both ezetimibe and atorvastatin though cholesterol remains a bit high. Likely due to his alcohol intake. His shafting cleaner has tried to prescribe him injection therapy for his cholesterol though has not been able to pay for this med. (3) MDD (major depressive disorder): Code(s): F32.9 - Major depressive disorder, single episode, unspecified Category: Medical Qualifiers: Active/Remission status: currently active Major depression episode severity: moderate Major depression recurrence: recurrent Qualified Code(s): F 33.1 - Major depressive disorder, recurrent, moderate Plan: Patient's PHQ-9 score positive for depression which has been existing condition for him. Also going through grief at this time as his of 15 years has last month. He is not interested in speaking with a mental health therapist at this time. (4) Alcohol use disorder, moderate, dependence: Code(s): F10.20 - Alcohol dependence, uncomplicated Category: Medical Plan: As per HPI patient does admit to drinking 6-8 beers per day. He believes it does help him with his anxiety. He is also going through grief at this point as his of 15 years has recently about a month ago. We did have long discussion with the need to reduce his drinking as it may be related to his abdominal pain (5) RUQ pain: Code(s): R10.11 - Right upper quadrant pain Category: Medical Plan: As above patient continues to have right upper abdominal pain, distention and cramping. This has been evaluated in the past with endoscopy and CT of the abdomen and pelvis showing-- > No specific source of left lower quadrant pain is identified. * There are diverticula of the sigmoid colon without evidence of diverticulitis. * Bilateral nephrolithiasis without hydronephrosis. * Diffuse hepatic steatosis. (6) BRENDA (generalized anxiety disorder): Code(s): F41.1 - Generalized anxiety disorder Category: Medical Plan: Patient's BRENDA-7 score positive for severe anxiety which has been existing condition for him. He continues with clonazepam on a daily basis which he reports significant benefit of his anxious symptoms. He reports he has been on benzodiazepines for over 20 years given to him by psychiatrist in the past. He does understand he has a dependency to benzodiazepines as well. At this point he is not interested in returning back to seeing a psychiatrist as he feels he knows what works for him . Orders: Orders 2 Comprehensive [place]. Panel Fast 11/23/24 I10 - Essential (primary) hypertension Microalbumin, Random (w Creat) 11/23/24 I10 - Essential (primary) hypertension Vitamin D 25-OH Total 11/23/24 R79.89 - Other specified abnormal findings of blood chemistry Complete Blood Count no Diff 11/23/24 I10 - Essential (primary) hypertension Lipid Panel 11/23/24 I25.10 - Atherosclerotic heart disease of [place] coronary artery without angina pectoris US abdomen comp w elastography 11/23/24 R10.11 - Right upper quadrant pain Medications: New 2 ondansetron HCl 8 mg PO Q12H 30 days 60 tabs 0RF K21.9 - Gastro-esophageal reflux disease without esophagitis Discontinued 2 ondansetron Discontinued Reason: Doctor's Order 4 mg PO Q8H 7 days PRN 21 tabs 0RF nausea and vomiting
[2024-11-23 12:01] VITALS: BP 140/84; PULSE 76; TEMP 36.3; O2SAT 96; BMI 25.3
--- OUTSIDE RECORDS SUMMARY | 2024-11-23 14:02 | XMS_ITS | Patient Health Record ---
Author Organization [facility] Address [address] [place] [address] Care Team Providers Care Power Checker Name Role Phone Daron Franco Primary Care Provider UnavailJeremiah Corrales Unavailable [phone] ALLERGIES No Known Allergies REASON FOR REFERRAL No Information MEDICATIONS Medication SIG (Take, Route, Frequency, Duration) Notes Start Date End Date Status LaMICtal 200 MG 1 tablet Orally Once a day Unknown Aspirin 81 81 MG 1 tablet Orally Once a day for 30 day(s) Active Atorvastatin Calcium 80 MG 1 tablet Orally Once a day Active Metoprolol Succinate ER 25 MG 1 tablet Orally twice a day Active clonazePAM 1 MG 1 tablet Orally Once a day prn anxiety Active clonazePAM 0.5 MG 1 tablet Orally Once a day Active KlonoPIN 1 MG 1 tablet Orally Twic e a day Not-Taking Omeprazole 40 MG 1 capsule Orally Onc e a day 10/09/2016 Not-Taking Dicyclomine HCl 10 MG TAKE 1 OR 2 CAPSUL ES BY MOUTH EVERY 6 HOURS NEEDED FOR ABDOMINAL CRAMPS AND DISCOMFORT for 5 Active Dicyclomine HCl 20 MG 1 tablet Orally Th ree times a day 01/11/2020 Not-Taking Clopidogrel Bisulfate 75 MG 1 tablet Orally Once a day for 30 day(s) Not-Taking Omeprazole 40 MG 1 Orally BID for 30 day(s) 10/01/2020 Not-Taking IMMUNIZATIONS Vaccine Route Administration Date Status Comme nts Influenza Unknown 06/26/2019 Administered Influenza Unknown 08/11/2023 Administered SOCIAL HISTORY Tobacco Use: Social History Observation Description Date Details (start date - stop date) Former Smoker NA - NA Sex Assigned At : Social History Observation Description Sex Assigned At Unknown Tobacco Use/Smoking Question Answer Notes Patient is a former smoker How long has it been since you last smoked? 3-6 months Alcohol Screen Question Answer Notes Did you have a drink contain ing alcohol in the past year? Yes How often did you have a dri nk containing alcohol in the past year? 4 or more times a week (4 points) How many drinks did you have on a typical day when you were drinking in the past year? 5 or 6 drinks (2 points) How often did you have 6 or more drinks on one occasion in the past year? Daily or almost daily (4 points) Points 10 Interpretation Positive PROBLEMS Problem Type ICD Code Onset Dates Problem Status W/U Status Risk SNOMED Code Notes Problem Gastritis and duodenitis (K29.90) Active confirmed 608803606 Problem Epigastric abdominal pain (R10.13) Active confirmed 17639349 Problem Blood in stool (K92.1) Active confirmed 584718697 Problem Abdominal pain, epigastric (R10.13) Active confirmed 07395579 Problem Gastroesophageal reflux disease, esophagitis presence not specified (K21.9) Active confirmed 681284053 Problem Abdominal pain, right upper quadrant (R10.11) Active confirmed 821599373 Problem Alcohol induced fatty liver (K70.0) Active confirmed 63689985 Problem RUQ abdominal pain (R10.11) Active confirmed 927782291 Problem Encounter for screening for malignant neoplasm of colon (Z12.11) Active confirmed 805352277 Problem Weight loss (R63.4) Active confirmed 89 129159 VITAL SIGNS Temperature 99.3 degrees Fahrenheit 04/12/2024 Blood pressure diastolic 00 mm Hg 04/12/2024 Height 68 in 04/12/2024 Blood pressure systolic 000 mm Hg 04/12/2024 Weight 166 lb 6 oz lbs 04/12/2024 BMI 25.29 kg/m2 04/12/2024 Encounters Encounter Location Date Provider Diagnosis [facility] [address] [place] [address] 04/12/2024 Jeremiah Bowen Gastritis and duoden itis K29.90 ; Epigastric abdominal pain R10.13 ; Abdominal pain, right upper quadrant R10.11 ; Alcohol induced fatty liver K70.0 and Gastroesophageal reflux disease, esophagitis presence not specified K21.9 [facility] [address] [place] [address] 11/29/2023 Jeremiah Bowen ASSESSMENTS Encounter Date Diagnosis Assessment Notes Treatment Notes Treatment Clinical Notes 04/12/2024 Epigastric abdominal pain (ICD-10 - R10.13) 04/12/2024 Gastritis and duodenitis (ICD-10 - K29.90) Stop alcohol completely! Continue daily omeprazole for the stomach. I will send over a prescription for you to use for the stomach cramps 04/12/2024 Abdominal pain, righ t upper quadrant (ICD-10 - R10.11) 04/12/2024 Alcohol induced fatt y liver (ICD-10 - K70.0) 04/12/2024 Gastroesophageal reflux disease, esophagitis presence not specified (ICD-10 - K21.9) PLAN OF TREATMENT Pending Test Test Name Order Date CHEM 7 PROFILE 10/09/2016 LIVER PROFILE 10/09/2016 LIVER PROFILE 10/01/2020 AMYLASE 10/09/2016 AMYLASE 10/01/2020 LIPASE 10/09/2016 LIPASE 10/01/2020 CBC w DIFF 10/09/2016 CBC w DIFF 10/01/2020 CLOSTRIDIUM DIFF TOXIN A&B (C DIFF) 09/25 STOOL WBC 10/09/2016 GIARDIA AG, STOOL EIA 10/09/2016 OVA & PARASITES (O&P) 10/09/2016 CULTURE, STOOL 10/09/2016 Future Test Test Name Order Date UPPER GI ENDOSCOPY 01/12/2020 COLONOSCOPY 04/19/2020 Insurance Providers Payer Name Payer Address Payer Phone Subscriber Number Group Number Insured Name Patient Relationship to Insured Coverage Start Date Coverage End Date [facility] [address] [place], [place] [id number] DANIEL RADHA Self - patient is the insured MEDICAL (GENERAL) HISTORY Medical History History ICD Code Colonoscopy 07-04-2010---this was done for the evaluation of occasional hematochezia--this revealed only some mild sigmoid diverticulosis and internal hemorrhoids EGD in 2008 --this was done as an inpatient for evaluation of some limited upper GI bleeding --it revealed some erosive gastritis and esophagitis--biopsies were negative for H. pylori Hypertension Hyperlipidemia Denies [place],DM,CVA,Lung disease,renal dise ase Anxiety Alcohol abuse as below Negative abdominal ultrasoun d, other than probable fatty liver, in July 2015 and in 12/2019 [place] 07/2019-1 stent placed Neg. EGD except for a minimal HH in 02/12 20 Fatty liver disease Screening colonoscopy 10/2020 with a smal l tubular adenoma removed Surgical History Surgery Date(Month/Year)
--- OUTSIDE RECORDS SUMMARY | 2024-11-23 14:02 | XMS_ITS ---
Author Organization [facility] Address [address] [place] [address] Care Team Providers Care Planing Machine Operator Name Role Phone Daron Franco Primary Care Provider Jeremiah Noland Unavailable [phone] ALLERGIES No Known Allergies REASON FOR VISIT Patient presents today for an upper endo/ had barrium MEDICATIONS Medication SIG (Take, Route, Frequency, Duration) Notes Start Date End Date Status LaMICtal 200 MG 1 tablet Orally Once a day Unknown Dicyclomine HCl 10 MG 1 or 2 capsules Or ally Every 6 hours as needed for abdominal cramps and discomfort for 30 day(s) 04/12/2024 Active Dicyclomine HCl 20 MG 1 tablet Orally Th ree times a day 01/11/2020 Not-Taking Clopidogrel Bisulfate 75 MG 1 tablet Orally Once a day for 30 day(s) Not-Taking Omeprazole 40 MG 1 Orally BID for 30 day(s) 10/01/2020 Not-Taking KlonoPIN 1 MG 1 tablet Orally Twic e a day Not-Taking Omeprazole 40 MG 1 capsule Orally Onc e a day 10/09/2016 Not-Taking Metoprolol Succinate ER 25 MG 1 tablet Orally twice a day Active clonazePAM 1 MG 1 tablet Orally Once a day prn anxiety Active clonazePAM 0.5 MG 1 tablet Orally Once a day Active Aspirin 81 81 MG 1 tablet Orally Once a day for 30 day(s) Active Atorvastatin Calcium 80 MG 1 tablet Orally Once a day Active SOCIAL HISTORY Tobacco Use: Social History Observation [...] daily (4 points) Points 10 Interpretation Positive VITAL SIGNS BMI 25.29 kg/m2 04/12/2024 Blood pressure systolic 000 mm Hg 04/12/20 24 Blood pressure diastolic 00 mm Hg 024 Height 68 in 04/12/2024 Temperature 99.3 degrees Fahrenheit 04/12/20 24 Weight 166 lb 6 oz lbs 04/12/2024 Encounters Encounter Location Date Provider Diagnosis [facility] [address] [place] [address] 04/12/2024 Jeremiah Bowen Gastritis and duoden itis K29.90 ; Epigastric abdominal pain R10.13 ; Abdominal pain, right upper quadrant R10.11 ; Alcohol induced fatty liver K70.0 and Gastroesophageal reflux disease, esophagitis presence not specified K21.9 ASSESSMENTS Encounter Date Diagnosis Assessment Notes Treatment Notes Treatment Clinical Notes 04/12/2024 Gastritis and duodenitis (ICD-10 - K29.90) Stop alcohol completely! Continue daily omeprazole for the stomach. I will send over a prescription for you to use for the stomach cramps 04/12/2024 Epigastric abdominal pain (ICD-10 - R10.13) 04/12/2024 Abdominal pain, righ t upper quadrant (ICD-10 - R10.11) 04/12/2024 Alcohol induced fatt y liver (ICD-10 - K70.0) 04/12/2024 Gastroesophageal reflux disease, esophagitis presence not specified (ICD-10 - K21.9) PLAN OF TREATMENT Medication Medication Name Sig Start Date Stop Date Notes Dicyclomine HCl 10 MG 1 or 2 capsules Or ally Every 6 hours as needed for abdominal cramps and discomfort for 30 day(s) 04/12/2024 Treatment Notes Assessment Notes Gastritis and duodenitis Stop alcohol completely! Continue daily omeprazole for the stomach. I will send over a prescription for you to use for the stomach cramps Next Appt Details Follow Up: prn, Reason: Progress Notes * Examination Category Sub-Category Detail Notes General Examination GENERAL APPEARANCE: pleasant , well nourished, well developed, in no acute distress HEAD: EYES: sclera non-icteric EARS: NOSE: THROAT: NECK/THYROID: no cervical lymphade nopathy, neck supple HEART: S1, S2 normal CHEST: LUNGS: clear to auscultatio n bilaterally ABDOMEN: normal bowel sounds, no guarding or rigidity, no guarding or rigidity, no masses palpable, soft, nontender, nondistended NEUROLOGIC: alert and oriented SKIN: nonjaundiced, no spi ying angiomata EXTREMITIES: no edema PERIPHERAL PULSES: BACK: BREASTS: MUSCULOSKELETAL: MALE GENITOURINARY: LYMPH NODES: RECTAL EXAM: FEMALE GENITOURINARY: ORAL CAVITY: mucosa moist
--- OUTSIDE RECORDS SUMMARY | 2024-11-23 14:02 | XMS_ITS ---
Author Organization [facility] Address [address] [place] [address] Care Team Providers Care Brick Mason Name Role Phone Daron Franco Primary Care Provider Unavailab Jeremiah Kennedy [phone] MEDICATIONS Medication SIG (Take, Route, Fr equency, Duration) Notes Start Date End Date Status Sucralfate 1 GM 1 tablet 30 minutes before meals and at bedtime Orally Four times a day for 30 day(s) 11/29/2023 Active Encounters Encounter Location Date Provider Diagnosis [facility] [address] [place] [id number] 11/29/2023 Jeremiah Bowen PLAN OF TREATMENT Medication Medication Name Sig Start Date Stop Date Notes Sucralfate 1 GM 1 tablet 30 minutes before meals and at bedtime Orally Four times a day for 30 day(s) 11/29/2023
== END 2024-11-23 13:01 | disposition home or self-care (01) ==
PROVIDERS: PCP Physician Assistant; Visit Provider Physician Assistant
DX: I10 Essential (primary) hypertension (principal); I25.10 Atherosclerotic heart disease of native coronary artery without angina pectoris; F33.1 Major depressive disorder, recurrent, moderate; F10.20 Alcohol dependence, uncomplicated; R10.11 Right upper quadrant pain; F41.1 Generalized anxiety disorder

== ENCOUNTER → 2024-11-23 11:36 | Outpatient (BNVA) | payer BC, SELFPAY | PROVIDERS: PCP Physician Assistant; Visit Provider Physician Assistant | DX: I10 Essential (primary) hypertension (principal); I25.10 Atherosclerotic heart disease of native coronary artery without angina pectoris; F33.1 Major depressive disorder, recurrent, moderate; F10.20 Alcohol dependence, uncomplicated; R10.11 Right upper quadrant pain; F41.1 Generalized anxiety disorder | CPT/HCPCS: 96127 ==

== ENCOUNTER 2024-12-28 10:24 | Outpatient (REF) | payer BC, SELFPAY ==
--- NOTE | ~2024-12-28 | US_ITS ---
EXAMINATION: US ABDOMEN COMPLETE WITH LIVER ELASTOGRAPHY HISTORY: R10.11 - Right upper quadrant pain, ALCOHOL ABUSE TECHNIQUE: Real-time grayscale ultrasound imaging of the abdomen was performed and images were reviewed. COMPARISON: Comparison is made with the prior examination dated 10/08/2023. FINDINGS: Liver: The right lobe of the liver measures 13.3 cm in size. The left lobe of the liver measures 8.9 cm in size. The liver demonstrates increased echotexture, consistent with steatosis. No focal mass or intrahepatic biliary ductal dilatation is identified. There is normal hepatopedal flow in the portal vein. Ultrasound elastography of the liver was performed with 10 separate measurements of the liver parenchyma with the patient in the supine position. Measurements were obtained approximately 2 cm below Rgiselda's capsule and perpendicular to the capsule. Images are of satisfactory quality. The median shear wave velocity is 1.34 m/s. The interquartile range/median (IQR/median) is 0.13. Gallbladder and biliary tree: The gallbladder is unremarkable, without evidence of calculi, wall thickening, or pericholecystic fluid. There is no sonographic Estrada sign. The common bile duct is normal in caliber measuring 5 mm. Kidneys: The right kidney measures 10.6 cm in length and demonstrates multiple nonobstructing calculi, the largest of which is at the lower pole measuring 4 mm in size. There is a 1.3 x 1.1 x 1.0 cm cyst with wall calcification at the lower pole. The left kidney measures 11.1 cm in length and demonstrates multiple nonobstructing calculi, the largest of which is at the lower pole measuring 5 mm in size. There is no hydronephrosis. Pancreas: The pancreatic head, neck, and body are unremarkable. The pancreatic tail is obscured by bowel gas. Spleen: The spleen is normal in size and contour, measuring 11.2 cm in length. A small 1.2 cm splenule is noted. Abdominal aorta and inferior vena cava: The visualized portions of the abdominal aorta and inferior vena cava are normal in caliber. There is no free fluid in the abdomen. US/US abdomen comp w elastography IMPRESSION: 1. Mild hepatomegaly. Hepatic steatosis. 2. Bilateral nephrolithiasis as described. No hydronephrosis. The median shear wave velocity is 1.34 m/s, corresponding to a median liver stiffness of 5.42 kPa. The IQR/median value is 0.13. This is indicative of a poor quality data set, and the estimated liver stiffness may be unreliable. Findings are indicative of a low elastography value which rules out advanced chronic liver disease in asymptomatic patients. REFERENCE: Society of Radiologists in Ultrasound Liver Stiffness Thresholds (2019): LIVER STIFFNESS THRESHOLDS: *Shear wave velocity less than 1.3 m/s (Liver Stiffness equal or less than 5 kPa): High probability of being normal. *Shear wave velocity less than 1.7 m/s (Liver Stiffness less than 9 kPa): In the absence of other known clinical signs, rules out compensated advanced chronic liver disease. *Shear wave velocity between 1.7-2.1 m/s (Liver Stiffness 9-13 kPa): Suggestive of compensated advanced chronic liver disease but need further test for confirmation. *Shear wave velocity between 2.1-2.4 m/s (Liver Stiffness 13-17 kPa): Rules in compensated advanced chronic liver disease. *Shear wave velocity greater than 2.4 m/s (Liver Stiffness over 17 kPa): Suggestive of clinically significant portal hypertension. QUALITY OF DATA SET: *IQR/Median value equal or less than 0.15 implies a quality data set. *IQR/Median value over 0.15 implies a poor quality data set. SIGNIFICANT CHANGE FROM PRIOR EXAM: Significant change if liver stiffness measurement is 10% or greater from prior exam. OTHER CONSIDERATIONS: The stage of liver fibrosis may be overestimated in the setting of acute hepatitis, liver inflammation, elevated liver function tests, hepatic vascular congestion, obstructive cholestasis, non-fasting state, and infiltrative diseases such as amyloidosis and lymphoma. In some patients with NAFLD, the liver stiffness thresholds for compensated advanced chronic liver disease may be lower. In causes other than viral hepatitis and NAFLD, liver stiffness thresholds are not well established. Electronically signed by: Jeremiah Hanson MD 12/30/2024 08:02 AM [facility]
[2024-12-28 12:13] LABS: Hematocrit 39.1 % (42.0-52.0); Hemoglobin 12.3 g/dl (14.0-18.0); Mean Corpuscular HGB Conc 31.5 g/dl (31.0-36.0); Mean Corpuscular Hemoglobin 25.2 pg (27.0-33.0); Platelet Count 269 X10*3/uL (160-400); Red Blood Count 4.89 X10*6/uL (4.60-5.80); Red Cell Distribution Width 15.9 % (11.0-16.0); White Blood Count 4.6 X10*3/uL (4.8-10.8)
--- OUTSIDE RECORDS SUMMARY | 2024-12-28 12:13 | XMS_ITS | Patient Health Record ---
Author Organization [facility] Address [address] [place] [address] Care Team Providers Care Prenatal Genetic Counselor Name Role Phone Daron Franco Primary Care Provider UnavailJeremiah Corrales Unavailable [phone] Allergies No Known Allergies Reason For Referral No Information Medications Medication SIG (Take, Route, Frequency, Duration) Notes [...] Orally BID for 30 day(s) 10/01/2020 Not-Taking Immunizations Vaccine Route Administration Date Status Comme nts Influenza Unknown 06/26/2019 Administered Influenza Unknown 08/11/2023 Administered Social History Tobacco Use: Social History Observation Description Date Details (start date - stop date) Former Smoker NA - NA Tobacco Use/Smoking Question Answer Notes Patient is [...] daily (4 points) Points 10 Interpretation Positive Section Notes: 10 cigs QD; 5-6 beers QD dur ing the week and more on the weekends 5 cigs cigs or less QD; 12 b eers QD during the week and more on the weekends 5 cigs cigs or less QD; 12 b eers QD during the week and more on the weekends--update patient is trying to quit as of 12/2019 but still drinking 6 beers QD and 2 nips of vodka QD Nonsmoker since 2019; 8 beer s QD during the week and more on the weekends as of the 04/19/2020 OV Nonsmoker since 2019; 8 beer s QD during the week and more on the weekends as of the 04/19/2020 OV Problems Problem Type SNOMED Code ICD Code Onset Dates Problem Status W/U Status Risk Notes Problem 35027429 Epigastric abdom inal pain (R10.13) Active confirmed Problem 074380533 Encounter for screening for malignant neoplasm of colon (Z12.11) Active confirmed Problem 90860234 Weight loss (R63.4) Active confirmed Problem 70818832 Abdominal pain, epigastric (R10.13) Active confirmed Problem 702052731 Blood in stool (K92.1) Active confirmed Problem 848363275 Gastroesophageal reflux disease, esophagitis presence not specified (K21.9) Active confirmed Problem 712890431 Gastritis and duodenitis (K29.90) Active confirmed Problem 271467734 Abdominal pain, right upper quadrant (R10.11) Active confirmed Problem 737772044 RUQ abdominal pa in (R10.11) Active confirmed Problem 00904031 Alcohol induced fatty liver (K70.0) Active confirmed Vital Signs Temperature 99.3 degrees Fahrenheit 04/12/2024 Blood pressure diastolic 00 mm Hg 04/12/2024 Height 68 in 04/12/2024 Blood pressure systolic 000 mm Hg 04/12/2024 Weight 166 lb 6 oz lbs 04/12/2024 BMI 25.29 kg/m2 04/12/2024 Encounters Encounter Location Date Provider Diagnosis [facility] [address] [place] [address] 04/12/2024 Jeremiah Bowen Gastritis and duoden itis K29.90 ; Epigastric abdominal pain R10.13 ; Abdominal pain, right upper quadrant R10.11 ; Alcohol induced fatty liver K70.0 and Gastroesophageal reflux disease, esophagitis presence not specified K21.9 Assessments Encounter Date Diagnosis (ICD Code) Assessment Notes Treatment Notes Treatment Clinical Notes Section Notes 04/12/2024 Epigastric abdominal pain (ICD-10 - R10.13) Overall, Rafiq appears remarkably well considering his long-standing and current alcohol abuse. His laboratories and imaging studies appear quite unremarkable as well. I don't think the upper GI series findings in regard to the thickening of the stomach are clinically significant in regard to any underlying neoplasm given the previously negative upper endoscopy, his clinical history of significant alcohol abuse, and the negative CT scan. Therefore, I don't think a repeat upper endoscopy would be helpful at this time. We did have a detailed discussion today regarding his need to eliminate alcohol completely from his lifestyle. Rafiq is well aware of this and has a good understanding of the need to avoid alcohol, but he simply has been unable to be successful in doing so. I did advise him to continue followup with you in that regard and hopefully be able to get into some type of program. In the meantime, I did advise to continue his daily omeprazole. I will send over a prescription for dicyclomine to see if that might help relieve some of the abdominal discomfort as well. We did review the need for a followup colonoscopy in 2025 given the history of a tubular adenoma removed in 2020. I did advise Rafiq to see me again in the interim on a p.r.n. basis. Rafiq understood and was comfortable with this plan. Thank you again for allowing me to participate in Rafiq's care. I shall continue to keep you advised of his progress as needed. 04/12/2024 Gastritis and duodenitis (ICD-10 - K29.90) Stop alcohol completely! Continue daily omeprazole for the stomach. I will send over a prescription for you to use for the stomach cramps Overall, Rafiq appears remarkably well considering his long-standing and current alcohol abuse. His laboratories and imaging studies appear quite unremarkable as well. I don't think the upper GI series findings in regard to the thickening of the stomach are clinically significant in regard to any underlying neoplasm given the previously negative upper endoscopy, his clinical history of significant alcohol abuse, and the negative CT scan. Therefore, I don't think a repeat upper endoscopy would be helpful at this time. We did have a detailed discussion today regarding his need to eliminate alcohol completely from his lifestyle. Rafiq is well aware of this and has a good understanding of the need to avoid alcohol, but he simply has been unable to be successful in doing so. I did advise him to continue followup with you in that regard and hopefully be able to get into some type of program. In the meantime, I did advise to continue his daily omeprazole. I will send over a prescription for dicyclomine to see if that might help relieve some of the abdominal discomfort as well. We did review the need for a followup colonoscopy in 2025 given the history of a tubular adenoma removed in 2020. I did advise Rafiq to see me again in the interim on a p.r.n. basis. Rafiq understood and was comfortable with this plan. Thank you again for allowing me to participate in Rafiq's care. I shall continue to keep you advised of his progress as needed. 04/12/2024 Abdominal pain, right upper quadrant (ICD-10 - R10.11) Overall, Rafiq appears remarkably well considering his long-standing and current alcohol abuse. His laboratories and imaging studies appear quite unremarkable as well. I don't think the upper GI series findings in regard to the thickening of the stomach are clinically significant in regard to any underlying neoplasm given the previously negative upper endoscopy, his clinical history of significant alcohol abuse, and the negative CT scan. Therefore, I don't think a repeat upper endoscopy would be helpful at this time. We did have a detailed discussion today regarding his need to eliminate alcohol completely from his lifestyle. Rafiq is well aware of this and has a good understanding of the need to avoid alcohol, but he simply has been unable to be successful in doing so. I did advise him to continue followup with you in that regard and hopefully be able to get into some type of program. In the meantime, I did advise to continue his daily omeprazole. I will send over a prescription for dicyclomine to see if that might help relieve some of the abdominal discomfort as well. We did review the need for a followup colonoscopy in 2025 given the history of a tubular adenoma removed in 2020. I did advise Rafiq to see me again in the interim on a p.r.n. basis. Rafiq understood and was comfortable with this plan. Thank you again for allowing me to participate in Rafiq's care. I shall continue to keep you advised of his progress as needed. 04/12/2024 Alcohol induced fatty liver (ICD-10 - K70.0) Overall, Rafiq appears remarkably well considering his long-standing and current alcohol abuse. His laboratories and imaging studies appear quite unremarkable as well. I don't think the upper GI series findings in regard to the thickening of the stomach are clinically significant in regard to any underlying neoplasm given the previously negative upper endoscopy, his clinical history of significant alcohol abuse, and the negative CT scan. Therefore, I don't think a repeat upper endoscopy would be helpful at this time. We did have a detailed discussion today regarding his need to eliminate alcohol completely from his lifestyle. Rafiq is well aware of this and has a good understanding of the need to avoid alcohol, but he simply has been unable to be successful in doing so. I did advise him to continue followup with you in that regard and hopefully be able to get into some type of program. In the meantime, I did advise to continue his daily omeprazole. I will send over a prescription for dicyclomine to see if that might help relieve some of the abdominal discomfort as well. We did review the need for a followup colonoscopy in 2025 given the history of a tubular adenoma removed in 2020. I did advise Rafiq to see me again in the interim on a p.r.n. basis. Rafiq understood and was comfortable with this plan. Thank you again for allowing me to participate in Rafiq's care. I shall continue to keep you advised of his progress as needed. 04/12/2024 Gastroesophageal reflux disease, esophagitis presence not specified (ICD-10 - K21.9) Overall, Rafiq appears remarkably well considering his long-standing and current alcohol abuse. His laboratories and imaging studies appear quite unremarkable as well. I don't think the upper GI series findings in regard to the thickening of the stomach are clinically significant in regard to any underlying neoplasm given the previously negative upper endoscopy, his clinical history of significant alcohol abuse, and the negative CT scan. Therefore, I don't think a repeat upper endoscopy would be helpful at this time. We did have a detailed discussion today regarding his need to eliminate alcohol completely from his lifestyle. Rafiq is well aware of this and has a good understanding of the need to avoid alcohol, but he simply has been unable to be successful in doing so. I did advise him to continue followup with you in that regard and hopefully be able to get into some type of program. In the meantime, I did advise to continue his daily omeprazole. I will send over a prescription for dicyclomine to see if that might help relieve some of the abdominal discomfort as well. We did review the need for a followup colonoscopy in 2025 given the history of a tubular adenoma removed in 2020. I did advise Rafiq to see me again in the interim on a p.r.n. basis. Rafiq understood and was comfortable with this plan. Thank you again for allowing me to participate in Rafiq's care. I shall continue to keep you advised of his progress as needed. Plan Of Treatment Pending Test Test Name Order Date CHEM 7 PROFILE 10/09/2016 LIVER PROFILE 10/01/2020 LIVER PROFILE 10/09/2016 AMYLASE 10/01/2020 AMYLASE 10/09/2016 LIPASE 10/01/2020 LIPASE 10/09/2016 CBC w DIFF 10/01/2020 CBC w DIFF 10/09/2016 CLOSTRIDIUM DIFF TOXIN A&B (C DIFF) 09/25 STOOL WBC 10/09/2016 GIARDIA AG, STOOL EIA 10/09/2016 OVA & PARASITES (O&P) 10/09/2016 CULTURE, STOOL 10/09/2016 Future Test Test Name Order Date UPPER GI ENDOSCOPY 01/12/2020 COLONOSCOPY 04/19/2020 Insurance Providers Payer Name Payer Address Payer Phone Subscriber Number Group Number Insured Name Patient Relationship to Insured Coverage Start Date Coverage End Date [facility] [address] [place], [place] [id number] RADHA SANCHEZ Self - patient is the insured Medical (General) History Medical History History ICD Code Colonoscopy 07-04-2010---this was done for the evaluation of occasional hematochezia--this revealed only some mild sigmoid diverticulosis and internal hemorrhoids EGD in 2008 --this was done as an inpatient for evaluation of some limited upper GI bleeding --it revealed some erosive gastritis and esophagitis--biopsies were negative for H. pylori Hypertension Hyperlipidemia Denies [place],DM,CVA,Lung disease,renal dise ase Anxiety Alcohol abuse as below Negative abdominal ultrasoun d, other than probable fatty liver, in July 2015 and in 12/2019 [place] 07/2019-1 stent placed Neg. EGD except for a minimal HH in 02/12 20 Fatty liver disease Screening colonoscopy 10/2020 with a smal l tubular adenoma removed Surgical History Surgery Date(Month/Year)
--- OUTSIDE RECORDS SUMMARY | 2024-12-28 12:13 | XMS_ITS ---
Author Organization [facility] Address [address] [place] [address] Care Team Providers Care Servicing Manager Name Role Phone Daron Franco Primary Care Provider Jeremiah Noland Unavailable [phone] Allergies No Known Allergies REASON FOR VISIT Patient presents today for an upper endo/ had barrium Medications Medication SIG (Take, Route, Frequency, Duration) [...] 1 tablet Orally Once a day Active Social History Tobacco Use: Social History Observation [...] points) Points 10 Interpretation Positive Section Notes: Nonsmoker since 2018; 8 beer s QD during the week and more on the weekends as of the 04/19/2020 OV Vital Signs Temperature 99.3 degrees Fahrenheit 04/12/20 24 Blood pressure systolic 000 mm Hg 04/12/20 24 Blood pressure diastolic 00 mm Hg 024 Height 68 in 04/12/2024 Weight 166 lb 6 oz lbs 04/12/2024 BMI 25.29 kg/m2 04/12/2024 Encounters Encounter Location Date Provider Diagnosis [facility] [address] [place] [address] 04/12/2024 Jeremiah Bowen Gastritis and duoden itis K29.90 ; Epigastric abdominal pain R10.13 ; Abdominal pain, right upper quadrant R10.11 ; Alcohol induced fatty liver K70.0 and Gastroesophageal reflux disease, esophagitis presence not specified K21.9 Assessments Encounter Date Diagnosis (ICD Code) Assessment Notes Treatment Notes Treatment Clinical Notes Section Notes 04/12/2024 Gastritis and duodenitis (ICD-10 - K29.90) Stop alcohol completely! Continue daily omeprazole for the stomach. I will send over a prescription for you to use for the stomach cramps Overall, Rachana appears remarkably well considering his long-standing and [...] to eliminate alcohol completely from his lifestyle. Rachana is well aware of this and has [...] adenoma removed in 2020. I did advise Rachana to see me again in the interim on a p.r.n. basis. Rachana understood and was comfortable with this plan. Thank you again for allowing me to participate in Rachana's care. I shall continue to keep you advised of his progress as needed. 04/12/2024 Epigastric abdominal pain (ICD-10 - R10.13) Overall, Rachana appears remarkably well considering his long-standing and [...] to eliminate alcohol completely from his lifestyle. Rachana is well aware of this and has [...] adenoma removed in 2020. I did advise Rachana to see me again in the interim on a p.r.n. basis. Rachana understood and was comfortable with this plan. Thank you again for allowing me to participate in Rachana's care. I shall continue to keep you advised of his progress as needed. 04/12/2024 Abdominal pain, right upper quadrant (ICD-10 - R10.11) Overall, Rachana appears remarkably well considering his long-standing and [...] to eliminate alcohol completely from his lifestyle. Rachana is well aware of this and has [...] adenoma removed in 2020. I did advise Rachana to see me again in the interim on a p.r.n. basis. Rachana understood and was comfortable with this plan. Thank you again for allowing me to participate in Rachana's care. I shall continue to keep you advised of his progress as needed. 04/12/2024 Alcohol induced fatty liver (ICD-10 - K70.0) Overall, Rachana appears remarkably well considering his long-standing and [...] to eliminate alcohol completely from his lifestyle. Rachana is well aware of this and has [...] adenoma removed in 2020. I did advise Rachana to see me again in the interim on a p.r.n. basis. Rachana understood and was comfortable with this plan. Thank you again for allowing me to participate in Rachana's care. I shall continue to keep you advised of his progress as needed. 04/12/2024 Gastroesophageal reflux disease, esophagitis presence not specified (ICD-10 - K21.9) Overall, Rachana appears remarkably well considering his long-standing and [...] to eliminate alcohol completely from his lifestyle. Rachana is well aware of this and has [...] adenoma removed in 2020. I did advise Rachana to see me again in the interim on a p.r.n. basis. Rachana understood and was comfortable with this plan. Thank you again for allowing me to participate in Rachana's care. I shall continue to keep you advised of his progress as needed. Plan Of Treatment Medication Medication Name Sig Start Date Stop [...] Follow Up: prn, Reason: Progress Notes * SHASHANK SANCHEZHDOB:1965 (58 yo M)Acc No.[id number]:04/12/2024 Progress Notes Patient:RADHA HONEYCUTT Provider:?Jeremiah Bowen MD :1965???Age:58 Y???Sex:Male Domenico e:04/12/2024 Address:[address] [place], [place] [id number] Pcp:Daron Franco Subjective: * Chief Complaints: * ???Patient presents today fo r an upper endo/ had barrium * HPI: ???incontinence:? I saw Rachana in consultation today in regard to further evaluation of his abdominal pain, alcohol abuse, and abnormal upper GI series. ?I last saw Rachana in October of 2020, at which time he underwent a screening colonoscopy with the removal of a small tubular adenoma. He has continued to abuse alcohol on a daily basis with upwards of 10-12 beers per day and 2 or 3 nips of whiskey. Other than the ER visits for abdominal pain he has had no hospitalizations. He presently describes having daily episodes of epigastric and right upper quadrant discomfort. He describes that drinking alcohol will tend to relieve the discomfort. He describes inducing vomiting to help relieve the discomfort but has not noticed any hematemesis no coffee grounds emesis. He denies any signs of jaundice, increasing abdominal girth, nor fevers. He reports that his bowel movements are somewhat soft and loose, but there's been no hematochezia nor melena. ?He has been using a daily omeprazole. I did send over a prescription for Carafate for him but he has not been using it. As you know he had an upper GI series in October describing a small hiatal hernia and gastritis. He had a CT scan in December that revealed is known that he liver and no evidence of any pancreatitis, splenomegaly, nor ascites. The GI tract, including the stomach, appeared normal on that study. ?Labs in December showed a hemoglobin of 11.3, platelet count 280,000, normal chemistries, lipase, and LFTs, except for an AST of 43. His. * ROS:?General/Constitutional:?Change in appetite?denies.?Chills?denies.?Fatigue?denies.?Ophthalmologic:?Comments?all negative.?ENT:?Comments?all negative.?Respiratory:?hemoptysis?denies.?Cough?denies.?Cardiovascular:?Chest pain?denies.?Orthopnea?denies.?Gastrointestinal:?Comments?See HPI for details.?Genitourinary:?Hematuria?denies.?Dysuria?denies.?Musculoskeletal:?Painful joints?denies.?Weakness?denies.?Skin:?Itching?denies.?Rash?denies.?Neurologic:?Headache?denies.?Seizures?denies.?Psychiatric:?Admits?Anxiety.?Admits?Difficulty sleeping.? * Medical History:? * Surgical History:?No Surgica l History documented. * Hospitalization/Major Diagno stic Procedure:?No Hospitalization History. * Family History:?Father: dece ased.?Mother: alive.?Maternal Grand Father: Age 70, diagnosed with Colon cancer.? No family history of liver cancer. * Social History:?Tobacco Use:?Tobacco Use/Smoking?Patient is a?former smoker,?How long has it been since you last smoked??3-6 months.?Drugs/Alcohol:?Alcohol Screen?Did you have a drink containing alcohol in the past year??Yes,?How often did you have a drink containing alcohol in the past year??4 or more times a week (4 points),?How many drinks did you have on a typical day when you were drinking in the past year??5 or 6 drinks (2 points),?How often did you have 6 or more drinks on one occasion in the past year??Daily or almost daily (4 points),?Points?10,?Interpretation?Positive.?Miscellaneous:?Marital status: -- is a smoker and an alcoholic as well, according to the patient. 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 ???Nonsmoker since 2019; 8 beers QD during the week and more on the weekends as of the 04/19/2020 OV. * Medications:?TakingAspirin 8 1 81 MG Tablet Delayed Release 1 tablet Orally Once a dayAtorvastatin Calcium 80 MG Tablet 1 tablet Orally Once a dayMetoprolol Succinate ER 25 MG Tablet Extended Release 24 Hour 1 tablet Orally twice a dayclonazePAM 1 MG Tablet 1 tablet Orally Once a day prn anxietyclonazePAM 0.5 MG Tablet 1 tablet Orally Once a dayTaking Aspirin 81 81 MG Tablet Delayed Release 1 tablet Orally Once a dayTaking Atorvastatin Calcium 80 MG Tablet 1 tablet Orally Once a dayTaking Metoprolol Succinate ER 25 MG Tablet Extended Release 24 Hour 1 tablet Orally twice a dayTaking clonazePAM 1 MG Tablet 1 tablet Orally Once a day prn anxietyTaking clonazePAM 0.5 MG Tablet 1 tablet Orally Once a dayNot-Taking/PRNKlonoPIN 1 MG Tablet 1 tablet Orally Twice a dayOmeprazole 40 MG Capsule Delayed Release 1 capsule Orally Once a dayDicyclomine HCl 20 MG Tablet 1 tablet Orally Three times a dayClopidogrel Bisulfate 75 MG Tablet 1 tablet Orally Once a dayOmeprazole 40 MG Capsule Delayed Release 1 Orally BIDNot-Taking/PRN KlonoPIN 1 MG Tablet 1 tablet Orally Twice a dayNot-Taking/PRN Omeprazole 40 MG Capsule Delayed Release 1 capsule Orally Once a dayNot-Taking/PRN Dicyclomine HCl 20 MG Tablet 1 tablet Orally Three times a dayNot-Taking/PRN Clopidogrel Bisulfate 75 MG Tablet 1 tablet Orally Once a dayNot-Taking/PRN Omeprazole 40 MG Capsule Delayed Release 1 Orally BIDDiscontinuedlamoTRIgine ER 200 MG Tablet Extended Release 24 Hour 1 tablet Orally Once a daybusPIRone HCl 10 MG Tablet 1 tablet Orally Twice a daycloNIDine HCl 0.3 MG Tablet 1 tablet Orally tidSucralfate 1 GM Tablet 1 tablet on an empty stomach Orally Twice a daySucralfate 1 GM Tablet 1 tablet 30 minutes before meals and at bedtime Orally Four times a dayDiscontinued lamoTRIgine ER 200 MG Tablet Extended Release 24 Hour 1 tablet Orally Once a dayDiscontinued busPIRone HCl 10 MG Tablet 1 tablet Orally Twice a dayDiscontinued cloNIDine HCl 0.3 MG Tablet 1 tablet Orally tidDiscontinued Sucralfate 1 GM Tablet 1 tablet on an empty stomach Orally Twice a dayDiscontinued Sucralfate 1 GM Tablet 1 tablet 30 minutes before meals and at bedtime Orally Four times a dayUnknownLaMICtal 200 MG Tablet 1 tablet Orally Once a dayMedication List reviewed and reconciled with the patientUnknown LaMICtal 200 MG Tablet 1 tablet Orally Once a dayMedication List reviewed and reconciled with the patient * Allergies:?N.K.D.A.yes[Aller gies Verified] Objective: * Vitals:?Wt: 166 lb 6 oz, Ht: 68 in, BMI:25.29 Index, BP: 000/00 mm Hg, Temp: 99.3. * Examination: ???General Examination: ?GENERAL APPEARANCE:?pleasant, well nourished, well developed, in no acute distress.?EYES:?sclera non-icteric.?ORAL CAVITY:?mucosa moist.?NECK/THYROID:?no cervical lymphadenopathy, neck supple.?SKIN:?nonjaundiced, no spider angiomata.?HEART:?S1, S2 normal.?LUNGS:?clear to auscultation bilaterally.?ABDOMEN:?normal bowel sounds, no guarding or rigidity, no guarding or rigidity, no masses palpable, soft, nontender, nondistended.?EXTREMITIES:?no edema.?NEUROLOGIC:?alert and oriented.? Assessment: * Assessment: 1.?Gastritis and duodenitis - K29.90 (Primary)?2.?Epigastric abdominal pain - R10.13?3.?Abdominal pain, right upper quadrant - R10.11?4.?Alcohol induced fatty liver - K70.0?5.?Gastroesophageal reflux disease, esophagitis presence not specified - K21.9? Overall, Rachana appears remarka jefferson well considering his long-standing and current alcohol [...] to eliminate alcohol completely from his lifestyle. Rachana is well aware of this and has [...] adenoma removed in 2020. I did advise Rachana to see me again in the interim on a p.r.n. basis. Rachana understood and was comfortable with this plan. Thank you again for allowing me to participate in Rachana's care. I shall continue to keep you advised of his progress as needed. Plan: * Treatment: 2.?Others? Start Dicyclomine HCl Capsule, 10 MG, 1 or 2 capsules, Orally, Every 6 hours as needed for abdominal cramps and discomfort, 30 day(s), 40, Refills 2.?? * Procedure Codes:?3017F COLOR ECTAL CA SCREEN DOC [id number] TOBACCO NON-UABEL1234 BP SCR NOT PRFRM REC REASON NOS * Preventive Medicine:? ??Counseling:?Care goal follow-up plan:?Above Normal BMI Follow-up?Giving encouragement to exercise,?BMI management provided?Yes.? * Follow Up:?prn * * Sign off status: Completed true * Provider:?Jeremiah Bowen MD Date:? 024 Generated for Pietro moreno/Nikole/eTransmitting on:?12/28/2024 12:13 PM EST History and Physical Notes * HPI (History of Present Illness) Category Sub-Category Detail Notes Category Not es incontinence I saw Rachana in consultation today in regard to further evaluation of his abdominal pain, alcohol abuse, and abnormal upper GI series. I last saw Rachana in October of 2020, at which time he underwent a screening colonoscopy with the removal of a small tubular adenoma. He has continued to abuse alcohol on a daily basis with upwards of 10-12 beers per day and 2 or 3 nips of whiskey. Other than the ER visits for abdominal pain he has had no hospitalizations. He presently describes having daily episodes of epigastric and right upper quadrant discomfort. He describes that drinking alcohol will tend to relieve the discomfort. He describes inducing vomiting to help relieve the discomfort but has not noticed any hematemesis no coffee grounds emesis. He denies any signs of jaundice, increasing abdominal girth, nor fevers. He reports that his bowel movements are somewhat soft and loose, but there's been no hematochezia nor melena. He has been using a daily omeprazole. I did send over a prescription for Carafate for him but he has not been using it. As you know he had an upper GI series in October describing a small hiatal hernia and gastritis. He had a CT scan in December that revealed is known that he liver and no evidence of any pancreatitis, splenomegaly, nor ascites. The GI tract, including the stomach, appeared normal on that study. Labs in December showed a hemoglobin of 11.3, platelet count 280,000, normal chemistries, lipase, and LFTs, except for an AST of 43. His Examination Category Sub-Category Detail Notes Category Not es General Examination GENERAL APPEARANCE: pleasant , well [...]
--- OUTSIDE RECORDS SUMMARY | 2024-12-28 12:13 | XMS_ITS ---
Author Organization [facility] Address [address] [place] [phone] Care Team Providers Care Merchandiser Name Role Phone Draon Franco Primary Care Provider Unavailab Jeremiah Kennedy [phone] Medications Medication SIG (Take, Route, Fr equency, Duration) Notes Start Date End Date Status Sucralfate 1 GM 1 tablet 30 minutes before meals and at bedtime Orally Four times a day for 30 day(s) 11/29/2023 Active Encounters Encounter Location Date Provider Diagnosis [facility] [address] [place] [phone] 11/29/2023 Jeremiah Bowen Plan Of Treatment Medication Medication Name Sig Start Date Stop Date Notes Sucralfate 1 GM 1 tablet 30 minutes before meals and at bedtime Orally Four times a day for 30 day(s) 11/29/2023 Progress Notes * SHASHANK SANCHEZHDOB:1965 (58 yo M)Acc No.[id number]:11/29/2023 Patient:?RADHA SANCHEZ :1965???Age:58 Y???Sex:Male [address] [place] [address] * Refills? Start Sucralfate Tablet, 1 GM, Orally, 120, 1 tablet 30 minutes before meals and at bedtime, Four times a day, 30 day(s), Refills=6 * true * Date:? Generated for Pietro moreno/Nikole/eTransmitting on:?12/28/2024 12:12 PM EST
[2024-12-28 12:50] LABS: Cholesterol 141 mg/dL (<200); HDL Cholesterol 64 mg/dL (>40); LDL Cholesterol Calculated 58 mg/dL (<100); Triglycerides 98 mg/dL (<150)
[2024-12-28 13:02] LABS: Alanine Aminotransferase 48 U/L (0-40); Albumin Level 4.6 g/dL (3.5-5.0); Alkaline Phosphatase 78 U/L (39-117); Anion Gap 12 (12-20); Aspartate Amino Transferase 50 U/L (5-37); Bilirubin Total 0.4 mg/dL (0.0-1.0); Blood Urea Nitrogen 14 mg/dL (9-16); Calcium 9.4 mg/dL (8.4-10.2); Carbon Dioxide 26 mmol/L (22-29); Chloride 106 mmol/L (96-108); Cholesterol 139 mg/dL (<200); Estimated Glomerular Filt Rate > 60; Glucose Fasting 95 mg/dL (60-99); HDL Cholesterol 65 mg/dL (>40); LDL Cholesterol Calculated 54 mg/dL (<100); Potassium 4.4 mmol/L (3.3-5.1); Sodium 140 mmol/L (135-145); Total Protein 8.1 g/dL (6.5-8.0); Triglycerides 100 mg/dL (<150)
[2024-12-28 13:06] LABS: Vitamin D 25-OH Total 11.4 ng/mL (>30)
[2024-12-28 14:25] LABS: Creatinine Urine 122.73 mg/dL; Microalbum/Creatinine Ratio Ur 10.5 ug/mg cr (<30)
== END 2024-12-28 10:25 | disposition home or self-care (01) ==
LOC: HO.US 10:24
PROVIDERS: Internal Medicine Cardiovascular Disease; PCP Physician Assistant; Visit Provider Physician Assistant
DX: R10.11 Right upper quadrant pain (principal); I10 Essential (primary) hypertension; I25.10 Atherosclerotic heart disease of native coronary artery without angina pectoris; R79.89 Other specified abnormal findings of blood chemistry; E78.5 Hyperlipidemia, unspecified
CPT/HCPCS: 36415; 76700; 76981; 80053; 80061; 82043; 82306; 82570; 85027

== ENCOUNTER → 2024-12-28 10:25 | Outpatient (BNV) | payer BC, SELFPAY | PROVIDERS: PCP Physician Assistant; Visit Provider Radiology Diagnostic Radiology | DX: R10.11 Right upper quadrant pain (principal) | CPT/HCPCS: 76700; 76981 ==

== ENCOUNTER 2025-03-29 14:20 | Outpatient (AMB) | payer BC, SELFPAY ==
--- NOTE | 2025-03-29 14:22 | MHC.PC.OV ---
Vital Signs 03/29/25 14:24 Height 5 ft 8 in Weight 166 lb 4 oz BMI 25.3 BP 122/76 Blood Pressure Location Lt brachial Position Sitting Pulse 76 Pulse Source Pulse Oximeter Temp 97.5 F Temp Source Temporal Artery Scan Pulse Oximetry (%) 97 Oxygen Delivery Method Room Air Intake Visit Reasons: back pain Intake Note: Patient is here to follow up on Back pain. Director Of Business Development Required: No Dryerman/Woman: Not Required per policy Accompanied by: Self / Same As Patient Allergies diphenhydramine [From Benadryl] Allergy (Unknown, Verified 03/29/25 14:23) Unknown clonidine Adverse Reaction (Intermediate, Verified 03/29/25 14:23) Dry mouth hydroxyzine Adverse Reaction (Intermediate, Verified 03/29/25 14:23) Dizziness naltrexone Adverse Reaction (Intermediate, Verified 03/29/25 14:23) dry mouth Tobacco use date assessed: 03/29/25 Dental Screening Dental Screen Date: 03/29/25 Did you have a dental visit in the last 12 months?: No Did you have a dental problem in the last 6 months where you did not have access to dental care?: No Was dental information given to patient?: Patient has dentist HPI back pain HPI Details The patient is a 59-year-old male presenting with back pain. The back pain started acutely while reaching and was described as a clunk in his lower right lumbar region. Previous episodes occurred five times over 15 years with similar movements. Initial treatment involved Tylenol, causing concerns over liver health. The patient has also used leftover baclofen without success. He reports further self-treatment with alcohol. The pain is mitigated through activities but worsens after sitting. Occupational duties are severely impacted due to the pain. A note for extended leave from work was requested to manage symptoms and avoid exacerbation. [facility] Medical History (Updated 03/29/25 @ 14:37 by Daron Franco PA-C) Elevated bilirubin Lumbar spine pain Alcohol use disorder, mild, in early remission COVID-19 ruled out Hiatal hernia PUD (peptic ulcer disease) Insomnia STEMI (ST elevation myocardial infarction) Dyslipidemia Alcohol abuse Hypertension CAD (coronary artery disease) Surgical History Hx of colonoscopy (~10/31/20) History of esophagogastroduodenoscopy (EGD) H/O heart artery stent Family History Father Medical history unknown Mother No problems noted. Social History (Updated 03/29/25 @ 14:28 by CITLALY Terry) Housing: House Are you a primary wound care center consultant to a significant other at home: No Alcohol intake: current Alcohol intake frequency: 3 or more drinks per day Alcohol type: beer Patient Tobacco Use Status: Current someday Tobacco user Tobacco use type: Cigarette Cigarette Packs Per Day: 0.25 Cigarettes Per Day: 3 e-Cigarette/Vaping Use: Never Used Second Hand Smoke Exposure: Yes service: No Current occupational status: employed Cognitive needs: No Hearing needs: No Vision needs: Yes (reading glasses) Questionnaire Thrive Questionnaire Date Thrive assessed: 11/23/24 BRENDA-7 AMB Questionnaire BRENDA-7 Date BRENDA - 7 assessed: 11/23/24 Source: Developed by Drs. Jeremiah Frye, Khloe Almanza, Jesus Cheema and colleagues, with an educational cara from [employer]. Review of Systems Const Denies headache(s) Eyes Denies loss of vision ENT Denies vertigo, Denies dizziness, Denies headache(s) and Denies sore throat Card Denies chest pain, Denies leg edema and Denies lightheadedness Resp Denies cough, Denies hemoptysis and Denies wheezing GI Denies abdominal pain, Denies melena, Denies constipation, Denies diarrhea and Denies vomiting Denies dysuria, Denies urinary frequency and Denies urinary urgency Musc Denies arthralgias, Denies joint swelling, Denies numbness and Denies tingling Neuro Denies Abnormal speech present, Denies behavioral changes, Denies vertigo, Denies dizziness, Denies headache(s), Denies loss of vision, Denies memory loss, Denies numbness and Denies tingling Psych Denies anxiety, Denies behavioral changes, Denies depression, Denies memory loss and Denies panic attacks Leobardo/Lymph Denies easy bleeding and Denies easy bruising Aller/Immun Denies wheezing Physical exam (Primary Care) Vital Signs: Last Vital Signs Temp 97.5 F 03/29/25 14:24 Pulse 76 03/29/25 14:24 BP 122/76 03/29/25 14:24 Pulse Ox 97 03/29/25 14:24 Oxygen Delivery Method Room Air 03/29/25 14:24 BMI result Body Mass Index 25.3 Tobacco/Smoking Status: Tobacco use Status Tobacco use date assessed 03/29/25 03/29/25 14:29 Patient Tobacco Use Status Current someday Tobacco 03/29/25 14:29 Tobacco use type Cigarette 03/29/25 14:29 e-Cigarette/Vaping Use Never Used 03/29/25 14:29 Thrive Assessment: Date of Thrive Assessment Date Thrive assessed 11/23/24 03/29/25 14:29 Const General: healthy appearing, no acute distress, alert and awake Nutritional Appearance: well nourished Orientation/consciousness: oriented to person, oriented to place and oriented to time HENMT Ears: TM's normal bilaterally General nose exam: Normal nasal mucous membranes and turbinates present Eyes Conjunctivae: conjunctivae normal Sclerae: sclerae normal Pupils: Equal, round and reactive pupils present Neck Neck: Yes no lymphadenopathy and Yes no JVD Thyroid: Thyroid normal Carotids: no bruits Resp Effort & Inspection: normal respiratory effort and not tachypneic Auscultation: no crackles, no rales, no rhonchi and no wheezes Cardio Rate: regular rate Rhythm: regular rhythm Heart sounds: no murmurs and normal S1 and S2 GI Palpation (GI): Soft to palpation, nontender, no hepatomegaly and no splenomegaly Auscultation: normal bowel sounds Back/Spine/Pelvis Other: LIMITED RANGE OF MOTION OF LUMBAR SPINE DUE TO PAIN AND STIFFNESS, PATIENT IS AMBULATING WITH AN ANTALGIC GAIT Skin General skin exam: no rashes or lesions noted and dry skin Neuro General: oriented to person, oriented to place and oriented to time Cranial nerves: Yes Equal, round and reactive pupils present Speech: No Abnormal speech present Gait exam (Neuro): Normal gait present Motor exam (neuro): no tremor noted Extrem Right upper extremity: full ROM Left upper extremity: full ROM Right lower extremity: full ROM; no edema Left lower extremity: full ROM; no edema Psych Mental Status: mental status grossly normal Speech and movement: Normal speech and movement present Affect: normal affect Attitude: cooperative Thought process: Normal thought process present Coding Level of Care Code Est Pt Level 3 (89295) Diagnoses Strain of lumbar region, initial encounter S39.012A Encounter type: initial encounter Assessment & Plan Assessment & Plan (1) Lumbar spine strain: Code(s): S39.012A - Strain of muscle, fascia and tendon of lower back, initial encounter Category: Medical Qualifiers: Encounter type: initial encounter Qualified Code(s): S39.012A - Strain of muscle, fascia and tendon of lower back, initial encounter Plan: The patient reported an acute lumbar strain incident. The approach involved recommending a recovery period involving rest, targeted at reducing activities that could worsen the injury. Treatment includes muscle relaxant use. I provided a work excuse note. Follow-up needed if unresolved. Medications: New oxycodone Partial Fill upon patient request. 5 mg PO BID 3 days PRN 6 tabs 0RF pain S39.012A - Strain of muscle, fascia and tendon of lower back, initial encounter cyclobenzaprine 10 mg PO BEDTIME 14 days 14 tabs 0RF S39.012A - Strain of muscle, fascia and tendon of lower back, initial encounter Discontinued baclofen Discontinued Reason: Doctor's Order 20 mg PO BID 15 days 30 tabs 0RF pain (scale score 7-10) M54.50 - Low back pain, unspecified
--- OUTSIDE RECORDS SUMMARY | 2025-03-29 14:23 | XMS_ITS ---
Author Organization [facility] Address [address] [place] [address] Care Team Providers Care Labeling Strategist Name Role Phone Daron Franco Primary Care Provider Unavailab Jeremiah Kennedy [phone] Medications Medication SIG (Take, Route, Fr equency, Duration) Notes Start Date End Date Status Sucralfate 1 GM 1 tablet 30 minutes before meals and at bedtime Orally Four times a day for 30 day(s) 11/29/2023 Active Encounters Encounter Location Date Provider Diagnosis [facility] [address] [place] [id number] 11/29/2023 Jeremiah Bowen Plan Of Treatment Medication Medication Name Sig Start Date Stop Date Notes Sucralfate 1 GM 1 tablet 30 minutes before meals and at bedtime Orally Four times a day for 30 day(s) 11/29/2023 Progress Notes * SHASHANK SANCHEZHDOB:1965 (58 yo M)Acc No.[id number]:11/29/2023 Patient:?RADHA SANCHEZ :1965???Age:58 Y???Sex:Male [address] [place] [address] * Refills? Start Sucralfate Tablet, 1 GM, Orally, 120, 1 tablet 30 minutes before meals and at bedtime, Four times a day, 30 day(s), Refills=6 * true * Date:? Generated for Kelechii josh/Nikole/eTransmitting on:?03/29/2025 02:23 PM EDT
[2025-03-29 14:24] VITALS: BP 122/76; PULSE 76; TEMP 36.4; O2SAT 97; BMI 25.3
== END 2025-03-29 16:40 | disposition home or self-care (01) ==
LOC: HO.HMCH 14:20
PROVIDERS: PCP Physician Assistant; Visit Provider Physician Assistant
DX: S39.012A Strain of muscle, fascia and tendon of lower back, initial encounter (principal)

== ENCOUNTER → 2025-03-29 14:20 | Outpatient (BNVA) | payer BC, SELFPAY | PROVIDERS: PCP Physician Assistant; Visit Provider Physician Assistant | DX: Z13.89 Encounter for screening for other disorder (principal) ==

== ENCOUNTER 2025-05-22 14:05 | Outpatient (AMB) | payer BC, SELFPAY ==
--- NOTE | 2025-05-22 14:46 | MHC.OFFWIV ---
Intake Vital Signs 05/22/25 14:47 Height 5 ft 8 in Weight 164 lb 6 oz BMI 25.0 BP 147/86 H Blood Pressure Location Lt brachial Position Sitting Pulse 76 Pulse Source Pulse Oximeter Temp 98.5 F Temp Source Oral Pulse Oximetry (%) 98 Oxygen Delivery Method Room Air Intake Visit Reasons: EP work note Patient Tobacco Use Status: Current someday Tobacco user Network Admin Required: No Allergies diphenhydramine (From Benadryl) Allergy (Unknown, Verified 05/22/25 14:55) Unknown clonidine Adverse Reaction (Intermediate, Verified 05/22/25 14:55) Dry mouth hydroxyzine Adverse Reaction (Intermediate, Verified 05/22/25 14:55) Dizziness naltrexone Adverse Reaction (Intermediate, Verified 05/22/25 14:55) dry mouth Medication List - Last Reconciled 05/22/25 by Elsie Weems PA-C aspirin 81 mg PO DAILY 90 days atorvastatin 80 mg PO DAILY 90 days blood pressure monitor (Blood Pressure Kit) As directed cholecalciferol (vitamin D3) 50 mcg PO DAILY 90 days clonazepam 1 mg PO DAILY 30 days cyclobenzaprine 10 mg PO BEDTIME 14 days dicyclomine 20 mg PO TID 30 days ezetimibe (Zetia) 10 mg PO DAILY 30 days metoprolol tartrate 12.5 mg PO BID naltrexone 50 mg PO DAILY omeprazole 40 mg PO DAILY tadalafil 20 mg PO DAILY PRN 7 days Do you need a note to return to daycare/school/sports/work: Yes HPI HPI Comments History of Present Illness Details History - The patient is a 59-year-old male presenting for a work note and evaluation of abdominal bloating and discomfort. - Reports chronic alcohol use, consuming approximately 12 beers and a nip daily, ongoing for many years. - Experiences abdominal bloating and tenderness, particularly in the right upper quadrant, associated with liver condition. - History of hepatic steatosis and mild hepatomegaly and fibrosis, with previous liver tests indicating these conditions. - Reports lack of appetite and weight loss, contributing to poor nutritional status. - Experienced significant personal stress, including recent of , exacerbating alcohol use. - Understands it is dangerous to detox at home alone, he tells me the last time he tried he had sweating, heart racing, chicken skin, chills and felt awful. - Unsure if he is really ready to quit drinking. - Has been trying to keep himself occupied with other things like going to the beach and fishing but then he brings alcohol and drinks - Didn't try the naltrexone his PCP prescribed him, also never took the Zoloft. 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 Physical Exam General: Cooperative, healthy appearing, comfortable, no acute distress and well developed Orientation: Patient oriented x3 Limitations: No limitations Head: Normal to inspection Ears: Hearing grossly normal bilaterally Nose: Normal External nose present Face and sinus: Normal facial exam Eyes: Appearance normal, both eyes and all related structures Neck: Normal visual inspection and Yes full ROM Respiratory: Normal respiratory effort and able to speak in complete sentences. GI: soft, no TTP throughout, negative [place], negative [place], liver not palpable Skin: no rashes or lesions noted Neuro: Patient oriented x3 Extremities: moving all extremities normally [facility] Medical History (Updated 03/29/25 @ 14:37 by Daron Franco PA-C) Elevated bilirubin Lumbar spine pain Alcohol use disorder, mild, in early remission COVID-19 ruled out Hiatal hernia PUD (peptic ulcer disease) Insomnia STEMI (ST elevation myocardial infarction) Dyslipidemia Alcohol abuse Hypertension CAD (coronary artery disease) Surgical History Hx of colonoscopy (~10/31/20) History of esophagogastroduodenoscopy (EGD) H/O heart artery stent Family History Father Medical history unknown Mother No problems noted. Social History (Updated 03/29/25 @ 14:28 by CITLALY Terry) Housing: House Are you a primary foster care case manager to a significant other at home: No Alcohol intake: current Alcohol intake frequency: 3 or more drinks per day Alcohol type: beer Patient Tobacco Use Status: Current someday Tobacco user Tobacco use type: Cigarette Cigarette Packs Per Day: 0.25 Cigarettes Per Day: 3 e-Cigarette/Vaping Use: Never Used Second Hand Smoke Exposure: Yes service: No Current occupational status: employed Cognitive needs: No Hearing needs: No Vision needs: Yes (reading glasses) Review of Systems Const All systems reviewed & are unremarkable except as noted in HPI and below Physical Exam Vital Signs: Last Vital Signs Temp 98.5 F 05/22/25 14:47 Pulse 76 05/22/25 14:47 BP 147/86 H 05/22/25 14:47 Pulse Ox 98 05/22/25 14:47 Oxygen Delivery Method Room Air 05/22/25 14:47 BMI result Body Mass Index 25.0 Assessment & Plan Assessment & Plan (1) Alcohol use disorder, moderate, dependence: Code(s): F10.20 - Alcohol dependence, uncomplicated Plan: - VSS, pt well appearing and PE unremarkable. - Advise lifestyle modifications including dietary changes and alcohol cessation. - Discussed the need for medically supervised detoxification due to risk of withdrawal complications. - Referral to addiction services for support and management. YAJAIRA Sood, speak with the patient regarding detox options, see her note for more details. (2) RUQ pain: Code(s): R10.11 - Right upper quadrant pain Plan: as above Coding Level of Care Code Est Pt Level 4 (25740) Diagnoses Alcohol use disorder, moderate, dependence F10.20 RUQ pain R10.11
[2025-05-22 14:47] VITALS: BP 147/86; PULSE 76; TEMP 36.9; O2SAT 98; BMI 25.0
--- OUTSIDE RECORDS SUMMARY | 2025-05-22 14:48 | XMS_ITS | Patient Health Record ---
Author Organization [facility] Address [address] [place] [address] Care Team Providers Care Treasury Assistant Name Role Phone Daron Franco Primary Care Provider UnavailJeremiah Crorales Unavailable [phone] Allergies No Known Allergies Reason For Referral No Information Medications Medication SIG (Take, Route, Frequency, Duration) Notes Start Date End Date Status LaMICtal 200 MG 1 tablet Orally Once a day Unknown Dicyclomine HCl 10 MG TAKE 1 OR 2 CAPSUL ES BY MOUTH EVERY 6 HOURS NEEDED FOR ABDOMINAL CRAMPS AND DISCOMFORT for 5 Active Aspirin 81 81 MG 1 tablet Orally Once a day for 30 day(s) Active Atorvastatin Calcium 80 MG 1 tablet Orally Once a day Active Metoprolol Succinate ER 25 MG 1 tablet Orally twice a day Active clonazePAM 1 MG 1 tablet Orally Once a day prn anxiety Active clonazePAM 0.5 MG 1 tablet Orally Once a day Active Sucralfate 1 GM TAKE 1 TABLET BY ADORE TH FOUR TIMES DAILY 30 MINUTES BEFORE MEALS AND AT BEDTIME for 30 Active KlonoPIN 1 MG 1 tablet Orally Twic e a day Not-Taking Omeprazole 40 MG 1 capsule Orally Onc e a day 10/09/2016 Not-Taking Dicyclomine HCl 20 MG 1 tablet Orally [...] Problem Status W/U Status Risk Notes Problem 91042834 Epigastric abdom inal pain (R10.13) Active confirmed Problem 716298321 Encounter for screening for malignant neoplasm of colon (Z12.11) Active confirmed Problem 85296296 Weight loss (R63.4) Active confirmed Problem 56796755 Abdominal pain, epigastric (R10.13) Active confirmed Problem 659124023 Blood in stool (K92.1) Active confirmed Problem 383955066 Gastroesophageal reflux disease, esophagitis presence not specified (K21.9) Active confirmed Problem 625460095 Gastritis and duodenitis (K29.90) Active confirmed Problem 954637562 Abdominal pain, right upper quadrant (R10.11) Active confirmed Problem 381349557 RUQ abdominal pa in (R10.11) Active confirmed Problem 85544729 Alcohol induced fatty liver (K70.0) Active confirmed Encounters Encounter Location Date Provider Diagnosis [facility] [address] [place] [address] 01/10/2025 Jeremiah Bowen Plan Of Treatment Pending Test Test Name [...] Insured Coverage Start Date Coverage End Date [facility] [address] [place], [place] [id number] RADHA SANCHEZ Self - patient is [...] negative for H. pylori Hypertension Hyperlipidemia Denies [place],DM,CVA,Lung disease,renal dise ase Anxiety Alcohol abuse as below Negative abdominal ultrasoun d, other than probable fatty liver, in July 2015 and in 12/2019 [place] 07/2019-1 stent placed Neg. EGD except for a minimal HH in 02/12 20 Fatty liver disease Screening colonoscopy 10/2020 with a smal l tubular adenoma removed Surgical History Surgery Date(Month/Year)
== END 2025-05-22 15:40 | disposition home or self-care (01) ==
PROVIDERS: PCP Physician Assistant; Visit Provider Physician Assistant
DX: F10.20 Alcohol dependence, uncomplicated (principal); R10.11 Right upper quadrant pain

== ENCOUNTER 2025-05-29 14:00 | Outpatient (AMB) | payer BC, SELFPAY ==
--- NOTE | 2025-05-29 14:09 | A.OFFPC_ITS ---
Vital Signs 05/29/25 14:11 Height 5 ft 8 in Weight 161 lb 8 oz BMI 24.6 BP 122/70 Blood Pressure Location Lt brachial Position Sitting Pulse 80 Pulse Source Pulse Oximeter Temp 97.1 F Temp Source Temporal Artery Scan Pulse Oximetry (%) 98 Oxygen Delivery Method Room Air Intake Visit Reasons: 3 month f/u Intake Note: Patient is here to follow up on MDD, IBS, HTN. Tubular Splitting Machine Tender Required: No Comparative Sociology Professor: Not Required per policy Allergies diphenhydramine (From Benadryl) Allergy (Unknown, Verified 05/29/25 14:25) Unknown clonidine Adverse Reaction (Intermediate, Verified 05/29/25 14:25) Dry mouth hydroxyzine Adverse Reaction (Intermediate, Verified 05/29/25 14:25) Dizziness naltrexone Adverse Reaction (Intermediate, Verified 05/29/25 14:25) dry mouth Medication List - Last Reconciled 05/29/25 by Daron Franco PA-C aspirin 81 mg PO DAILY 90 days atorvastatin 80 mg PO DAILY 90 days blood pressure monitor (Blood Pressure Kit) As directed cholecalciferol (vitamin D3) 50 mcg PO DAILY 90 days clonazepam 1 mg PO DAILY 30 days cyclobenzaprine 10 mg PO BEDTIME 14 days dicyclomine 20 mg PO TID 30 days ezetimibe (Zetia) 10 mg PO DAILY 30 days metoprolol tartrate 12.5 mg PO BID naltrexone 50 mg PO DAILY omeprazole 40 mg PO DAILY tadalafil 20 mg PO DAILY PRN 7 days Tobacco use date assessed: 05/29/25 Dental Screening Dental Screen Date: 03/29/25 HPI 3 month f/u HPI Details Patient is a 59-year-old male here today for a follow-up visit. Patient's past medical history significant for coronary artery disease, hypertension, generalized anxiety disorder, alcohol use disorder. Alcohol use disorder: The patient has a significant history of alcohol use disorder, consuming large quantities of beer daily. He has attempted to quit drinking multiple times, experiencing withdrawal symptoms such as nausea and abdominal pain. He has been advised to consider inpatient rehabilitation but expresses concerns about the cost and time commitment. The patient reports nausea and abdominal discomfort, particularly in the liver area, and has been diagnosed with hepatomegaly and fatty liver disease. Previous liver function tests showed elevated liver enzymes, and an ultrasound indicated mild hepatomegaly. PLAN: He will try hydroxyzine again, has naltrexone available and strongly consider inpatient detox to get sober. We did discuss using FMLA Generalized anxiety disorder:. Has use sertraline in the past though has fears of side effects. Continues on clonazepam 1 mg daily which he reports has to best affect on his anxiety. Unfortunately continues to drink on a daily basis. Not interested in speaking with a mental health therapist or trying SSRI therapy again. .. Major depressive disorder: The patient experiences anxiety and has been dealing with grief, which has been part of his ongoing mental health management. He reports insomnia, often waking up at 3:00 or 4:00 in the morning, and uses Klonopin to manage his symptoms .. Coronary artery disease: Continues his follow-up with cardiology. Patient has been recommended his children's institution attendant to start injection therapy to help reduce his LDL. Unfortunately has been much too expensive for him. Laboratory Tests 07/03/22 12/28/24 12:37 11:55 AST 50 H ALT 48 H Cholesterol 242 LDL Cholesterol, C alc 154 58 25-OH Vitamin D To zion 11.4 L [facility] Medical History (Updated 05/29/25 @ 14:39 by Daron Franco PA-C) Elevated bilirubin Lumbar spine pain Alcohol use disorder, mild, in early remission COVID-19 ruled out Hiatal hernia PUD (peptic ulcer disease) Insomnia STEMI (ST elevation myocardial infarction) Dyslipidemia Alcohol abuse Hypertension CAD (coronary artery disease) Surgical History Hx of colonoscopy (~10/31/20) History of esophagogastroduodenoscopy (EGD) H/O heart artery stent Family History Father Medical history unknown Mother No problems noted. Social History Housing: House Are you a primary rn complex care to a significant other at home: No Alcohol intake: current Alcohol intake frequency: 3 or more drinks per day Alcohol type: beer Patient Tobacco Use Status: Current someday Tobacco user Tobacco use type: Cigarette Cigarette Packs Per Day: 0.25 Cigarettes Per Day: 3 e-Cigarette/Vaping Use: Never Used Second Hand Smoke Exposure: Yes service: No Current occupational status: employed Cognitive needs: No Hearing needs: No Vision needs: Yes (reading glasses) Questionnaire PHQ-9 Over the last 2 weeks, how often have you been bothered by any of the following problems? 1. Little interest or pleasure in doing things: nearly every day 2. Feeling down, depressed, or hopeless: nearly every day 3. Trouble falling or staying asleep, or sleeping too much: nearly every day 4. Feeling tired or having little energy: nearly every day 5. Poor appetite or overeating: nearly every day 6. Feeling bad about yourself - or that you are a failure or have let yourself or your family down: nearly every day 7. Trouble concentrating on things, such as reading the newspaper or watching television: nearly every day 8. Moving or speaking so slowly that other people could have noticed. Or the opposite - being so fidgety or restless that you have been moving around a lot more than usual: several days 9. Thoughts that you would be better off or of hurting yourself in some way: not at all Total score: 22 Depression Screening Interpretation: Positive Depression Screening Follow-up: Existing condition and Declines treatment Depression Screening Done: Yes 32999 - PHQ-9 Billing: Yes Source: Developed by Drs. Jeremiah Frye, Khloe Almanza, Jesus Cheema and colleagues, with an educational cara from [employer]. Thrive Questionnaire Date Thrive assessed: 11/23/24 I am a: Patient What is your living situation today?: I have a steady place to live Within the past 12 months, did the food you bought not last and you didn't have the money to get more?: Never true Within the past 12 months, did you worry whether your food would run out before you got money to buy more?: Never true Do you have trouble paying for medicines?: No Do you have trouble getting transportation to medical appointments?: No Do you have trouble paying your heating and electricity bill?: No Do you have trouble taking care of your child, family member or friend?: No Do you have trouble with day-to-day activities such as bathing, preparing meals, shopping, managing finances, etc.?: I choose not to answer this question Are you currently unemployed and looking for a job?: Yes Are you interested in more education?: No Please select the resources that you would like help with: Daily support Currently or been in a relationship where the following occur: No concerns reported THRIVE Score: 0 AUDIT C Alcohol Use Questionnaire (AUDIT-C) 1. How often do you have a drink containing alcohol?: 4 or more times a week 2. How many drinks containing alcohol do you have on a typical day when you are drinking?: 10 or more 3. How often do you have six or more drinks on one occasion?: Daily or almost daily Total Score: 12 BRENDA-7 AMB Questionnaire BRENDA-7 Date BRENDA - 7 assessed: 05/29/25 Feeling nervous, anxious, or on edge: 3 = Nearly every day Not being able to stop or control worryin = Nearly every day Worrying too much about different things: 3 = Nearly every day Trouble relaxin = Nearly every day Being so restless that it is hard to sit still: 3 = Nearly every day Becoming easily annoyed or irritable: 1 = Several days Feeling afraid as if something awful might happen: 1 = Several days Total BRENDA-7 score (0-4 normal; 5-9 mild; 10-14 moderate; 15-21 severe): 17 Source: Developed by Drs. Jeremiah Frye, Khloe Almanza, Jesus Cheema and colleagues, with an educational cara from [employer]. BRENDA-7 Assessment Billing BRENDA-7 Assessment Tool: BRENDA-7 Assessment 83021 Review of Systems Const Denies headache(s) Eyes Denies loss of vision ENT Denies vertigo, Denies dizziness, Denies headache(s) and Denies sore throat Card Denies chest pain, Denies leg edema and Denies lightheadedness Resp Denies cough, Denies hemoptysis and Denies wheezing GI Denies abdominal pain, Denies melena, Denies constipation, Denies diarrhea and Denies vomiting Denies dysuria, Denies urinary frequency and Denies urinary urgency Musc Denies arthralgias, Denies joint swelling, Denies numbness and Denies tingling Neuro Denies Abnormal speech present, Denies behavioral changes, Denies vertigo, De nies dizziness, Denies headache(s), Denies loss of vision, Denies memory loss, Denies numbness and Denies tingling Psych Denies anxiety, Denies behavioral changes, Denies depression, Denies memory loss and Denies panic attacks Leobardo/Lymph Denies easy bleeding and Denies easy bruising Aller/Immun Denies wheezing Physical exam (Primary Care) Vital Signs: Last Vital Signs Temp 97.1 F 05/29/25 14:11 Pulse 80 05/29/25 14:11 BP 122/70 05/29/25 14:11 Pulse Ox 98 05/29/25 14:11 Oxygen Delivery Method Room Air 05/29/25 14:11 BMI result Body Mass Index 24.6 Tobacco/Smoking Status: Tobacco use Status Tobacco use date assessed 05/29/25 05/29/25 14:16 Patient Tobacco Use Status Current someday Tobacco 05/29/25 14:16 Tobacco use type Cigarette 05/29/25 14:16 e-Cigarette/Vaping Use Never Used 05/29/25 14:16 PHQ-9: PHQ-9 Score PHQ-9: Total score 22 05/29/25 14:27 Depression Screening Interpretation: Positive Depression Screening Follow-up: Existing condition and Declines treatment Thrive Assessment: Date of Thrive Assessment Date Thrive assessed 11/23/24 05/29/25 14:16 Currently or been in a relationship where the following occur: No concerns reported Const General: healthy appearing, no acute distress, alert and awake Nutritional Appearance: well nourished Orientation/consciousness: oriented to person, oriented to place and oriented to time HENMT Ears: TM's normal bilaterally General nose exam: Normal nasal mucous membranes and turbinates present Eyes Conjunctivae: conjunctivae normal Sclerae: sclerae normal Pupils: Equal, round and reactive pupils present Neck Neck: Yes no lymphadenopathy and Yes no JVD Thyroid: Thyroid normal Carotids: no bruits Resp Effort & Inspection: normal respiratory effort and not tachypneic Auscultation: no crackles, no rales, no rhonchi and no wheezes Cardio Rate: regular rate Rhythm: regular rhythm Heart sounds: no murmurs and normal S1 and S2 GI Palpation (GI): Soft to palpation, nontender, no hepatomegaly and no splenomegaly Auscultation: normal bowel sounds Skin General skin exam: no rashes or lesions noted and dry skin Neuro General: oriented to person, oriented to place and oriented to time Cranial nerves: Yes Equal, round and reactive pupils present Speech: No Abnormal speech present Gait exam (Neuro): Normal gait present Motor exam (neuro): no tremor noted Extrem Right upper extremity: full ROM Left upper extremity: full ROM Right lower extremity: full ROM; no edema Left lower extremity: full ROM; no edema Psych Mental Status: mental status grossly normal Speech and movement: Normal speech and movement present Affect: normal affect Attitude: cooperative Thought process: Normal thought process present Coding Level of Care Code Est Pt Level 4 (32900) Diagnoses Chest congestion R09.89 Primary hypertension I10 Hypertension type: primary hypertension Coronary artery disease, unspecified vessel or lesion type, unspecified whether angina present, unspecified whether [place] or transplanted heart I25.10 Associated angina: unspecified whether angina present Coronary Disease-Associated Artery/Lesion type: unspecified vessel or lesion type [place] vs. transplanted heart: unspecified whether [place] or transplanted heart Moderate episode of recurrent major depressive disorder F33.1 Active/Remission status: currently active Major depression episode severity: moderate Major depression recurrence: recurrent Alcohol use disorder, moderate, dependence F10.20 RUQ pain R10.11 BRENDA (generalized anxiety disorder) F41.1 Additional Codes PHQ-9 - 69114 - PHQ-9 Billing: Yes ([id number]) BRENDA-7 Assessment Billing - BRENDA-7 Assessment Tool: BRENDA-7 Assessment 53635 ([id number]) Assessment & Plan Assessment & Plan (1) Chest congestion: Code(s): R09.89 - Other specified symptoms and signs involving the circulatory and respiratory systems Category: Medical Plan: Patient considering chest x-ray for his intermittent chest congestion. Otherwise no respiratory distress or fevers noted. (2) HTN (hypertension): Code(s): I10 - Essential (primary) hypertension Category: Medical Qualifiers: Hypertension type: primary hypertension Qualified Code(s): I10 - Essent ial (primary) hypertension Plan: Patient's blood pressure acceptable today in office. Will continue his current dose of antihypertensive medication with goal blood pressure to be below 140/90 (3) CAD (coronary artery disease): Code(s): I25.10 - Atherosclerotic heart disease of [place] coronary artery without angina pectoris Category: Medical Qualifiers: Associated angina: unspecified whether angina present Coronary Disease- Associated Artery/Lesion type: unspecified vessel or lesion type [place] vs. transplanted heart: unspecified whether [place] or transplanted heart Qualified Code(s): I25.10 - Atherosclerotic heart disease of [place] coronary artery without angina pectoris Plan: Patient was followed by Cardiology and is planning on reestablishing. He is on highest dose of both ezetimibe and atorvastatin though cholesterol remains a bit high. Likely due to his alcohol intake. His children[facility] institution attendant has tried to prescribe him injection therapy for his cholesterol though has not been able to pay for this med. (4) MDD (major depressive disorder): Code(s): F32.9 - Major depressive disorder, single episode, unspecified Category: Medical Qualifiers: Active/Remission status: currently active Major depression episode severity: moderate Major depression recurrence: recurrent Qualified Code(s): F33.1 - Major depressive disorder, recurrent, moderate Plan: Patient's PHQ-9 score positive for depression which has been existing condition for him. Also going through grief at this time as his of 15 years has last month. He is not interested in speaking with a mental health therapist at this time. (5) Alcohol use disorder, moderate, dependence: Code(s): F10.20 - Alcohol dependence, uncomplicated Category: Medical Plan: The patient is advised to consider inpatient rehabilitation for alcohol use disorder, despite concerns about cost and time commitment. Medications such as naltrexone, clonidine, and hydroxyzine may be used to manage withdrawal symptoms and cravings. Engagement in support groups like Alcoholics Anonymous is encouraged for additional support. He is also going through grief at this point as his of 15 years has recently about a month ago. (6) RUQ pain: Code(s): R10.11 - Right upper quadrant pain Category: Medical Plan: As above patient continues to have right upper abdominal pain, distention and cramping. Symptoms likely related to his excessive alcohol ingestion This has been evaluated in the past with endoscopy and CT of the abdomen and pelvis showing-- > No specific source of left lower quadrant pain is identified. * There are diverticula of the sigmoid colon without evidence of diverticulitis. * Bilateral nephrolithiasis without hydronephrosis. * Diffuse hepatic steatosis. (7) BRENDA (generalized anxiety disorder): Code(s): F41.1 - Generalized anxiety disorder Category: Medical Plan: Patient's BRENDA-7 score positive for anxiety which has been existing condition for him The patient should continue using prescribed anxiolytics, such as Klonopin, as needed for anxiety management. Consideration of cognitive behavioral therapy or counseling for ongoing mental health support is recommended. Orders: Orders Complete Blood Count no Diff 05/29/25 F10.20 - Alcohol dependence, uncomplicated Comprehensive [place]. Panel Fast 05/29/25 F10.20 - Alcohol dependence, uncomplicated Prostate Specific Antigen Scr 05/29/25 R09.89 - Other specified symptoms and signs involving the circulatory and respiratory systems, Z12.5 - Encounter for screening for malignant neoplasm of prostate Lipid Panel 05/29/25 E78.5 - Hyperlipidemia, unspecified Microalbumin, Random (w Creat) 05/29/25 I10 - Essential (primary) hypertension XR chest 2V 05/29/25 R09.89 - Other specified symptoms and signs involving the circulatory and respiratory systems Medications: New hydroxyzine HCl 25 mg PO BEDTIME 30 tabs 1RF 30 days F10.20 - Alcohol dependence, uncomplicated
--- OUTSIDE RECORDS SUMMARY | 2025-05-29 14:09 | XMS_ITS | Patient Health Record ---
Author Organization [facility] Address [address] [place] [address] Care Team Providers Care Vp Of Product Name Role Phone Daron Franco Primary Care Provider UnavailJeremiah Corrales Unavailable [phone] Allergies No Known Allergies Reason For Referral [...] Problem Status W/U Status Risk Notes Problem 78439913 Epigastric abdom inal pain (R10.13) Active confirmed Problem 482259910 Encounter for screening for malignant neoplasm of colon (Z12.11) Active confirmed Problem 59811697 Weight loss (R63.4) Active confirmed Problem 84803898 Abdominal pain, epigastric (R10.13) Active confirmed Problem 008310916 Blood in stool (K92.1) Active confirmed Problem 493369150 Gastroesophageal reflux disease, esophagitis presence not specified (K21.9) Active confirmed Problem 373369207 Gastritis and duodenitis (K29.90) Active confirmed Problem 391317939 Abdominal pain, right upper quadrant (R10.11) Active confirmed Problem 889756398 RUQ abdominal pa in (R10.11) Active confirmed Problem 47953313 Alcohol induced fatty liver (K70.0) Active confirmed Encounters Encounter Location Date Provider Diagnosis [facility] [address] [place] [address] 01/10/2025 Jeremiah Bowen Plan Of Treatment Pending [...] Insured Coverage Start Date Coverage End Date [facility] [address] [place], [place] [phone] [id number] RADHA SANCHEZ Self - patient is [...] negative for H. pylori Hypertension Hyperlipidemia Denies [place],DM,CVA,Lung disease,renal dise ase Anxiety Alcohol abuse as below Negative abdominal ultrasoun d, other than probable fatty liver, in July 2015 and in 12/2019 [place] 07/2019-1 stent placed Neg. EGD except for a minimal HH in 02/12 20 Fatty liver disease Screening colonoscopy 10/2020 with a smal l tubular adenoma removed Surgical History Surgery Date(Month/Year)
[2025-05-29 14:11] VITALS: BP 122/70; PULSE 80; TEMP 36.2; O2SAT 98; BMI 24.6
== END 2025-05-29 15:01 | disposition home or self-care (01) ==
LOC: HO.HMCH 14:01
PROVIDERS: PCP Physician Assistant; Visit Provider Physician Assistant
DX: R09.89 Other specified symptoms and signs involving the circulatory and respiratory systems (principal); I10 Essential (primary) hypertension; I25.10 Atherosclerotic heart disease of native coronary artery without angina pectoris; F33.1 Major depressive disorder, recurrent, moderate; F10.20 Alcohol dependence, uncomplicated; R10.11 Right upper quadrant pain; F41.1 Generalized anxiety disorder

== ENCOUNTER → 2025-05-29 14:00 | Outpatient (BNVA) | payer BC, SELFPAY | PROVIDERS: PCP Physician Assistant; Visit Provider Physician Assistant | DX: R09.89 Other specified symptoms and signs involving the circulatory and respiratory systems (principal); I10 Essential (primary) hypertension; I25.10 Atherosclerotic heart disease of native coronary artery without angina pectoris; F33.1 Major depressive disorder, recurrent, moderate; F10.20 Alcohol dependence, uncomplicated; R10.11 Right upper quadrant pain; F41.1 Generalized anxiety disorder; Z13.31 Encounter for screening for depression; Z13.39 Encounter for screening examination for other mental health and behavioral disorders | CPT/HCPCS: 96127 ==

== ENCOUNTER 2025-09-07 10:01 | Outpatient (AMB) | payer BC, SELFPAY ==
[2025-09-07 10:04] VITALS: BP 104/72; PULSE 54; TEMP 36.2; O2SAT 98; BMI 24.2
--- NOTE | 2025-09-07 10:04 | A.OFFPC_ITS ---
Vital Signs 09/07/25 10:04 Height 5 ft 8 in Weight 159 lb BMI 24.2 BP 104/72 Blood Pressure Location Lt brachial Position Sitting Pulse 54 Pulse Source Pulse Oximeter Temp 97.1 F Temp Source Temporal Artery Scan Pulse Oximetry (%) 98 Oxygen Delivery Method Room Air Intake Visit Reasons: Rectal bleeding Allergies diphenhydramine (From Benadryl) Allergy (Unknown, Verified 09/07/25 10:27) Unknown clonidine Adverse Reaction (Intermediate, Verified 09/07/25 10:27) Dry mouth hydroxyzine Adverse Reaction (Intermediate, Verified 09/07/25 10:27) Dizziness naltrexone Adverse Reaction (Intermediate, Verified 09/07/25 10:27) dry mouth Tobacco use date assessed: 09/07/25 Dental Screening Dental Screen Date: 09/07/25 Did you have a dental visit in the last 12 months?: Yes Did you have a dental problem in the last 6 months where you did not have access to dental care?: No Was dental information given to patient?: Patient has dentist HPI Rectal bleeding HPI Details The patient is a 60-year-old male presenting for evaluation of rectal bleeding. He reports an off-and-on history of rectal bleeding for years, which worsened significantly last night, with the toilet bowl being full of bright red blood. He notes some protrusion that he pushes back in, which causes pain. In the last month, he has developed hard stools, requiring significant straining to defecate, which he notes followed quitting alcohol. Over the last month, he has also experienced new urinary symptoms, including strong urgency followed by a weak stream and needing to push on his abdomen to void. He was prescribed nitrofurantoin for a presumed urinary tract infection. This morning, he experienced nausea, dizziness, and faintness, prompting him to leave work. He also complains of chronic nausea associated with discomfort in the right upper quadrant, which has persisted despite alcohol cessation. The patient reports a history of fatty liver and a mildly enlarged liver found on a prior ultrasound. The patient recently completed a 34-day program at [facility] followed by a 30-day program at [facility], and has been sober for over two months. Despite sobriety, he reports persistent low energy and fatigue. He also has chronic insomnia, waking after two hours of sleep and remaining awake; he has tried multiple medications (Remeron, hydroxyzine, clonidine) without benefit. His sertraline dose was recently increased from 50 mg to 75 mg for anxiety, and he was started on daily tadalafil for erectile dysfunction, which was previously used as needed. He uses clonazepam as needed for sleep and panic attacks and is currently out of the medication. The patient had a colonoscopy in 2020 which showed a tubular adenoma. [facility] Medical History Elevated bilirubin Lumbar spine pain Alcohol use disorder, mild, in early remission COVID-19 ruled out Hiatal hernia PUD (peptic ulcer disease) Insomnia STEMI (ST elevation myocardial infarction) Dyslipidemia Alcohol abuse Hypertension CAD (coronary artery disease) Surgical History Hx of colonoscopy (~10/31/20) History of esophagogastroduodenoscopy (EGD) H/O heart artery stent Family History Father Medical history unknown Mother No problems noted. Social History Housing: House Are you a primary caregivers homecare to a significant other at home: No Alcohol intake: current Alcohol intake frequency: 3 or more drinks per day Alcohol type: beer Patient Tobacco Use Status: Former Tobacco user Tobacco use type: Cigarette Cigarette Packs Per Day: 0.25 Cigarettes Per Day: 3 e-Cigarette/Vaping Use: Never Used Second Hand Smoke Exposure: Yes service: No Current occupational status: employed Cognitive needs: No Hearing needs: No Vision needs: Yes (reading glasses) Questionnaire PHQ-9 Over the last 2 weeks, how often have you been bothered by any of the following problems? 1. Little interest or pleasure in doing things: nearly every day 2. Feeling down, depressed, or hopeless: nearly every day 3. Trouble falling or staying asleep, or sleeping too much: nearly every day 4. Feeling tired or having little energy: nearly every day 5. Poor appetite or overeating: nearly every day 6. Feeling bad about yourself - or that you are a failure or have let yourself or your family down: nearly every day 7. Trouble concentrating on things, such as reading the newspaper or watching television: nearly every day 8. Moving or speaking so slowly that other people could have noticed. Or the opposite - being so fidgety or restless that you have been moving around a lot more than usual: several days 9. Thoughts that you would be better off or of hurting yourself in some way: not at all Total score: 22 Depression Screening Interpretation: Positive Depression Screening Follow-up: Existing condition and Declines treatment Depression Screening Done: Yes 95675 - PHQ-9 Billing: Patient declined-do not bill Source: Developed by Drs. Jeremiah Frye, Khloe Almanza, Jesus Cheema and colleagues, with an educational cara from [employer]. Thrive Questionnaire Date Thrive assessed: 05/29/25 I am a: Patient What is your living situation today?: I have a steady place to live Within the past 12 months, did the food you bought not last and you didn't have the money to get more?: Never true Within the past 12 months, did you worry whether your food would run out before you got money to buy more?: Never true Do you have trouble paying for medicines?: No Do you have trouble getting transportation to medical appointments?: No Do you have trouble paying your heating and electricity bill?: No Do you have trouble taking care of your child, family member or friend?: No Do you have trouble with day-to-day activities such as bathing, preparing meals, shopping, managing finances, etc.?: I choose not to answer this question Are you currently unemployed and looking for a job?: Yes Are you interested in more education?: No Please select the resources that you would like help with: Daily support Currently or been in a relationship where the following occur: No concerns reported THRIVE Score: 0 AUDIT C Alcohol Use Questionnaire (AUDIT-C) 1. How often do you have a drink containing alcohol?: Never 3. How often do you have six or more drinks on one occasion?: Never Total Score: 0 BRENDA-7 AMB Questionnaire BRENDA-7 Date BRENDA - 7 assessed: 05/29/25 Feeling nervous, anxious, or on edge: 3 = Nearly every day Not being able to stop or control worryin = Nearly every day Worrying too much about different things: 3 = Nearly every day Trouble relaxin = Nearly every day Being so restless that it is hard to sit still: 3 = Nearly every day Becoming easily annoyed or irritable: 1 = Several days Feeling afraid as if something awful might happen: 1 = Several days Total BRENDA-7 score (0-4 normal; 5-9 mild; 10-14 moderate; 15-21 severe): 17 Source: Developed by Drs. Jeremiah Frye, Khloe Almanza, Jesus Cheema and colleagues, with an educational cara from [employer]. BRENDA-7 Assessment Billing BRENDA-7 Assessment Tool: BRENDA-7 Assessment 98717 Review of Systems Const Denies headache(s) Eyes Denies loss of vision ENT Denies vertigo, Denies dizziness, Denies headache(s) and Denies sore throat Card Denies chest pain, Denies leg edema and Denies lightheadedness Resp Denies cough, Denies hemoptysis and Denies wheezing GI Details: + INTERMITTENT RIGHT UPPER QUADRANT ABDOMINAL PAIN Reports abdominal pain, Denies melena, Reports hematochezia, Denies constipation, Denies diarrhea and Denies vomiting Denies dysuria, Denies urinary frequency and Denies urinary urgency Musc Denies arthralgias, Denies joint swelling, Denies numbness and Denies tingling Neuro Denies Abnormal speech present, Denies behavioral changes, Denies vertigo, Denies dizziness, Denies headache(s), Denies loss of vision, Denies memory loss, Denies numbness and Denies tingling Psych Denies anxiety, Denies behavioral changes, Denies depression, Denies memory loss and Denies panic attacks Leobardo/Lymph Denies easy bleeding and Denies easy bruising Aller/Immun Denies wheezing Physical exam (Primary Care) Vital Signs: Last Vital Signs Temp 97.1 F 09/07/25 10:04 Pulse 54 09/07/25 10:04 BP 104/72 09/07/25 10:04 Pulse Ox 98 09/07/25 10:04 Oxygen Delivery Method Room Air 09/07/25 10:04 BMI result Body Mass Index 24.2 Tobacco/Smoking Status: Tobacco use Status Tobacco use date assessed 09/07/25 09/07/25 10:09 Patient Tobacco Use Status Former Tobacco user 09/07/25 10:09 Tobacco use type Cigarette 09/07/25 10:09 e-Cigarette/Vaping Use Never Used 09/07/25 10:09 PHQ-9: PHQ-9 Score PHQ-9: Total score 22 09/07/25 10:19 Depression Screening Interpretation: Positive Depression Screening Follow-up: Existing condition and Declines treatment Thrive Assessment: Date of Thrive Assessment Date Thrive assessed 05/29/25 09/07/25 10:09 Currently or been in a relationship where the following occur: No concerns reported Const General: healthy appearing, no acute distress, alert and awake Nutritional Appearance: well nourished Orientation/consciousness: oriented to person, oriented to place and oriented to time HENMT Ears: TM's normal bilaterally General nose exam: Normal nasal mucous membranes and turbinates present Eyes Conjunctivae: conjunctivae normal Sclerae: sclerae normal Pupils: Equal, round and reactive pupils present Neck Neck: Yes no lymphadenopathy and Yes no JVD Thyroid: Thyroid normal Carotids: no bruits Resp Effort & Inspection: normal respiratory effort and not tachypneic Auscultation: no crackles, no rales, no rhonchi and no wheezes Cardio Rate: regular rate Rhythm: regular rhythm Heart sounds: no murmurs and normal S1 and S2 GI Palpation (GI): Soft to palpation, nontender, no hepatomegaly and no splenomegaly Auscultation: normal bowel sounds Skin General skin exam: no rashes or lesions noted and dry skin Neuro General: oriented to person, oriented to place and oriented to time Cranial nerves: Yes Equal, round and reactive pupils present Speech: No Abnormal speech present Gait exam (Neuro): Normal gait present Motor exam (neuro): no tremor noted Extrem Right upper extremity: full ROM Left upper extremity: full ROM Right lower extremity: full ROM; no edema Left lower extremity: full ROM; no edema Psych Mental Status: mental status grossly normal Speech and movement: Normal speech and movement present Affect: normal affect Attitude: cooperative Thought process: Normal thought process present Coding Level of Care Code Est Pt Level 4 (32468) Diagnoses Bleeding hemorrhoid K64.9 Weak urinary stream R39.12 Other fatigue R53.83 Fatigue type: other Additional Codes BRENDA-7 Assessment Billing - BRENDA-7 Assessment Tool: BRENDA-7 Assessment 87062 ([id number]) Assessment & Plan Assessment & Plan (1) Bleeding hemorrhoid: Code(s): K64.9 - Unspecified hemorrhoids Category: Medical Plan: For the rectal bleeding and hemorrhoids, a referral will be placed to a rectal surgeon, Dr. Hancock, for evaluation and to discuss treatment options like banding or surgery. To manage the associated constipation, a stool softener and a laxative will be prescribed. Symptomatic relief with sitz baths and preparation H was also recommended. (2) Weak urinary stream: Code(s): R39.12 - Poor urinary stream Category: Medical Plan: To investigate the urinary symptoms, a urinalysis will be performed to check for a urinary tract infection. Labs will be ordered to check for anemia due to bleeding, monitor liver function and cholesterol post-alcohol cessation, and check PSA levels (3) Fatigue: Code(s): R53.83 - Other fatigue Category: Medical Qualifiers: Fatigue type: other Qualified Code(s): R53.83 - Other fatigue Plan: Regarding the patient's report of dizziness and faintness, the daily use of tadalafil was identified as a likely contributor to low blood pressure, especially in combination with his other medications. The patient was advised to stop taking tadalafil daily and revert to as-needed use. To evaluate his persistent fatigue, a testosterone level will be checked. Orders: Orders UA CC w/rflx Micro + Cult Today R30.0 - Dysuria, R39.12 - Poor urinary stream Testosterone, Free/Total Today R53.83 - Other fatigue Referrals General Surgery Referral K64.9 - Unspecified hemorrhoids Medications: New sennosides (senna) 17.2 mg (2 x 8.6 mg) PO BEDTIME 60 caps 0RF 30 days K64.9 - Unspecified hemorrhoids Refilled clonazepam 1 mg PO DAILY 30 tabs 3RF 30 days F41.1 - Generalized anxiety disorder atorvastatin 80 mg PO DAILY 90 tabs 2RF 90 days I25.10 - Atherosclerotic heart disease of [place] coronary artery without angina pectoris Discontinued hydroxyzine HCl Discontinued Reason: Doctor's Order 25 mg PO BEDTIME 30 days 30 tabs 1RF F10.20 - Alcohol dependence, uncomplicated
--- OUTSIDE RECORDS SUMMARY | 2025-09-07 11:58 | XMS_ITS | Patient Health Record ---
Author Organization [facility] Address [address] [place] [address] Care Team Providers Care Beet Flumer Name Role Phone Daron Franco Primary Care Provider UnavailJeremiah Corrales Unavailable [phone] Allergies No Known Allergies Reason For Referral No Information Medications Medication SIG (Take, Route, Frequency, Duration) Notes Start Date End Date Status LaMICtal 200 MG 1 tablet Orally Once a day Unknown Dicyclomine HCl 10 MG TAKE 1 OR 2 CAPSUL ES BY MOUTH EVERY 6 HOURS NEEDED FOR ABDOMINAL CRAMPS AND DISCOMFORT; Duration: 5 Active Aspirin 81 81 MG 1 tablet Orally Once a day; Duration: 30 day(s) Active Atorvastatin Calcium 80 MG [...] DAILY 30 MINUTES BEFORE MEALS AND AT BEDTIME; Duration: 30 Active KlonoPIN 1 MG 1 tablet Orally Twic e a day Not-Taking Omeprazole 40 MG 1 capsule Orally Onc e a day 10/09/2016 Not-Taking Dicyclomine HCl 20 MG 1 tablet Orally Th ree times a day 01/11/2020 Not-Taking Clopidogrel Bisulfate 75 MG 1 tablet Orally Once a day; Duration: 30 day(s) Not-Taking Omeprazole 40 MG 1 Orally BID; Durati on: 30 day(s) 10/01/2020 Not-Taking Immunizations Vaccine Route [...] Problem Status W/U Status Risk Notes Problem Epigastric pain (49501145) Epigastric abdominal pain (R10.13) Active confirmed Problem Screening for malignant neoplasm of colon (264367873) Encounter for screening for malignant neoplasm of colon (Z12.11) Active confirmed Problem Weight loss (822907490) Weight loss (R63.4) Active confirmed Problem Epigastric pain (09222198) Abdominal pain, epigastric (R10.13) Active confirmed Problem Blood in stool (617650256) Blood in stool (K92.1) Active confirmed Problem Gastroesophageal reflux disease (488167280) Gastroesophageal reflux disease, esophagitis presence not specified (K21.9) Active confirmed Problem Gastritis and duodenitis (191286390) Gastritis and duodenitis (K29.90) Active confirmed Problem Right upper quadrant pain (815406278) Abdominal pain, right upper quadrant (R10.11) Active confirmed Problem Right upper quadrant pain (171866451) RUQ abdominal pain (R10.11) Active confirmed Problem Alcoholic fatty liver (91707854) Alcohol induced fatty liver (K70.0) Active confirmed Encounters Encounter Location Date Provider Diagnosis [facility] [address] [place] [address] 01/10/2025 Jeremiah Bowen Plan Of Treatment Pending [...] Insured Coverage Start Date Coverage End Date [facility] [id number] [place], [place] [phone] [id number] RADHA SANCHEZ Self - patient is [...] negative for H. pylori Hypertension Hyperlipidemia Denies VT,DM,CVA,Lung disease,renal dise ase Anxiety Alcohol abuse as below Negative abdominal ultrasoun d, other than probable fatty liver, in July 2015 and in 12/2019 VT 07/2019-1 stent placed Neg. EGD except for a minimal HH in 02/12 20 Fatty liver disease Screening colonoscopy 10/2020 with a smal l tubular adenoma removed Surgical History Surgery Date(Month/Year)
== END 2025-09-07 11:04 | disposition home or self-care (01) ==
LOC: HO.HMCH 10:01
PROVIDERS: PCP Physician Assistant; Visit Provider Physician Assistant
DX: K64.9 Unspecified hemorrhoids (principal); R39.12 Poor urinary stream; R53.83 Other fatigue

== ENCOUNTER → 2025-09-07 10:01 | Outpatient (BNVA) | payer BC, SELFPAY | PROVIDERS: PCP Physician Assistant; Visit Provider Physician Assistant | DX: R11.0 Nausea (principal); R42 Dizziness and giddiness; N52.9 Male erectile dysfunction, unspecified; K64.9 Unspecified hemorrhoids; R39.12 Poor urinary stream; R53.83 Other fatigue; R30.0 Dysuria; F41.1 Generalized anxiety disorder; I25.10 Atherosclerotic heart disease of native coronary artery without angina pectoris; F10.20 Alcohol dependence, uncomplicated | CPT/HCPCS: 96127 ==

== ENCOUNTER 2025-10-16 10:24 | Outpatient (AMB) | payer BC, SELFPAY ==
--- NOTE | 2025-10-16 10:40 | A.OFFVIS_ITS ---
Vital Signs 10/16/25 10:43 Height 5 ft 8 in Weight 157 lb BMI 23.9 BP 119/70 Blood Pressure Location Rt brachial Position Sitting Pulse 70 Intake Visit Reasons: hemorrhoids Intake Note: Patient presents for an assessment for hemorrhoids. Pt c/o; one external hemorrhoid that causes bleeding. 10/31/2020: Dr. Bowen-Colonoscopy [facility] Brusher Required: No Accompanied by: Self / Same As Patient Allergies diphenhydramine (From Benadryl) Allergy (Unknown, Verified 10/16/25 10:41) Unknown clonidine Adverse Reaction (Intermediate, Verified 10/16/25 10:41) Dry mouth hydroxyzine Adverse Reaction (Intermediate, Verified 10/16/25 10:41) Dizziness naltrexone Adverse Reaction (Intermediate, Verified 10/16/25 10:41) dry mouth Medication List - Last Reconciled 10/16/25 by Jose Manuel Hancock MD aspirin 81 mg PO DAILY 90 days atorvastatin 80 mg PO DAILY 90 days blood pressure monitor (Blood Pressure Kit) As directed cholecalciferol (vitamin D3) 50 mcg PO DAILY 90 days clonazepam 1 mg PO DAILY 30 days cyclobenzaprine 10 mg PO BEDTIME 14 days dicyclomine 20 mg PO TID 30 days ezetimibe (Zetia) 10 mg PO DAILY 30 days metoprolol tartrate 12.5 mg PO BID naltrexone 50 mg PO DAILY omeprazole 40 mg PO DAILY sennosides (senna) 17.2 mg (2 x 8.6 mg) PO BEDTIME 30 days sertraline 50 mg PO DAILY sertraline 25 mg PO DAILY tadalafil 20 mg PO DAILY PRN 7 days HPI HPI hemorrhoids: Details: 60-year-old male referred for hemorrhoid issues. He says that he has hemorrhoids for about 20 years. He describes having frequent prolapse with the associated discomfort and pain along with bleeding from his hemorrhoids. He feels that this has been worsening past several months. He was a known drinker and says he has been sober for about 4 months. He describes occasional constipation as well. He also sees Dr. 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 He describes having severe bleeding in the past requiring transfusion because of this. He says that sometimes he has to hold a paper on anus for several minutes after bowel movements to stop the bleeding. He denies being on anticoagulation. He has had colonoscopies before. He said he is due for a colonoscopy with Dr. Bowen. [facility] Medical History Elevated bilirubin Lumbar spine pain Alcohol use disorder, mild, in early remission COVID-19 ruled out Hiatal hernia PUD (peptic ulcer disease) Insomnia STEMI (ST elevation myocardial infarction) Dyslipidemia Alcohol abuse Hypertension CAD (coronary artery disease) Surgical History Hx of colonoscopy (~10/31/20) History of esophagogastroduodenoscopy (EGD) H/O heart artery stent Family History Father Medical history unknown Mother No problems noted. Social History Housing: House Are you a primary rn complex care to a significant other at home: No Alcohol intake: current Alcohol intake frequency: 3 or more drinks per day Alcohol type: beer Patient Tobacco Use Status: Former Tobacco user Tobacco use type: Cigarette Cigarette Packs Per Day: 0.25 Cigarettes Per Day: 3 e-Cigarette/Vaping Use: Never Used Second Hand Smoke Exposure: Yes service: No Current occupational status: employed Cognitive needs: No Hearing needs: No Vision needs: Yes (reading glasses) Review of Systems Const Denies chills and Denies fever(s) Card Denies chest pain, Denies dyspnea and Denies dyspnea on exertion Resp Denies cough, Denies dyspnea and Denies dyspnea on exertion GI Reports hematochezia, Denies change in bowel habits and Reports constipation Denies hematuria and Denies difficulty urinating Musc Denies back pain and Denies limited range of motion Neuro Denies focal weakness and Denies convulsions Psych Denies depression and Denies mood swings Physical Exam Vital Signs: Last Vital Signs Pulse 70 10/16/25 10:43 BP 119/70 10/16/25 10:43 BMI result Body Mass Index 23.9 Const General: comfortable and no acute distress Orientation/consciousness: patient oriented x3 Neck Neck: Yes no lymphadenopathy Resp Auscultation: clear to auscultation bilaterally Cardio Rhythm: regular rhythm GI Other: Rectal exam shows moderate size hemorrhoid in the right Palpation (GI): Soft to palpation, nontender and no guarding Neuro General: patient oriented x3 Office Procedures Anoscopy He was in kneeling dustin-knife position. The anoscope was gently inserted. A full examination of the entire anal canal was done. He did have prominent mixed internal and external hemorrhoidal columns on both the left and right side. I did not see any active bleeding. I did not see any other obvious lesions. There was no induration on digital exam. There was no fissure or ulceration. [id number] Assessment & Plan Assessment & Plan (1) Bleeding hemorrhoid: Code(s): K64.9 - Unspecified hemorrhoids Category: Medical Plan: He has large internal external hemorrhoids with frequent bleeding. He wants to proceed with the hemorrhoidectomy. I had a long discussion with the about the technique of under anesthesia and hemorrhoidectomy. I reviewed with him the ri sks including but not limited to bleeding, infections, poor healing, postop pain, as well as the benefits and alternatives. I reviewed with him what to expect postoperatively He says he understands and wants to proceed. He does state that he is scheduled to have a colonoscopy with Dr. Bowen. I told him that it may be best to do the hemorrhoidectomy after his colonoscopy. He will call me about the details of this. I will reach out to Dr. Bowen about this as well. Coding Level of Care Code New Pt Level 3 (90038) Diagnoses Bleeding hemorrhoid K64.9 CPT Codes Details - CPT: 12094-Lazevozm ([id number])
[2025-10-16 10:43] VITALS: BP 119/70; PULSE 70; BMI 23.9
--- OUTSIDE RECORDS SUMMARY | 2025-10-16 12:44 | XMS_ITS | Patient Health Record ---
Author Organization [facility] Address [address] [place] [address] Care Team Providers Care Client Support Coordinator Name Role Phone Daron Franco Primary Care Provider Jeremiah Noland Unavailable [phone] Allergies No Known Allergies Reason For Referral No Information Medications Medication SIG (Take, Route, Frequency, Duration) Notes Start Date End Date Status LaMICtal 200 MG Tablet 1 tablet Orally O nce a day Unknown Dicyclomine HCl 10 MG Capsule TAKE 1 OR 2 CAPSULES BY MOUTH EVERY 6 HOURS NEEDED FOR ABDOMINAL CRAMPS AND DISCOMFORT; Duration: 5 Active Aspirin 81 81 MG Tablet Delayed Release 1 tablet Orally Once a day; Duration: 30 day(s) Active Atorvastatin Calcium 80 MG Tablet 1 tablet Orally Once a day Active Metoprolol Succinate ER 25 MG Tablet Extended Release 24 Hour 1 tablet Orally twice a day Active clonazePAM 1 MG Tablet 1 tablet Orally O nce a day prn anxiety Active clonazePAM 0.5 MG Tablet 1 tablet Orally Once a day Active Sucralfate 1 GM Tablet TAKE 1 TABLET BY MOUTH FOUR TIMES DAILY 30 MINUTES BEFORE MEALS AND AT BEDTIME; Duration: 30 Active KlonoPIN 1 MG Tablet 1 tablet Orally Twi ce a day Not-Taking/PRN Omeprazole 40 MG Capsule Delayed Release 1 capsule Orally Once a day 10/09/2016 Not-Taking/PRN Dicyclomine HCl 20 MG Tablet 1 tablet Orally Three times a day 01/11/2020 Not-Taking/PRN Clopidogrel Bisulfate 75 MG Tablet 1 tablet Orally Once a day; Duration: 30 day(s) Not-Taking/PRN Omeprazole 40 MG Capsule Delayed Release 1 Orally BID; Duration: 30 day(s) 10/01/2020 Not-Taking/P RN Immunizations Vaccine Route Administration Date Status Comme nts Influenza Unknown 06/26/2019 Administered Influenza Unknown 08/11/2023 Administered Social History Tobacco Use: Social History Observation Description Date Details (start date - stop date) Former Smoker NA - NA Social History Drugs/Alcohol: Social Info Question Answer Notes Alcohol Screen Did you have a drink containing alcohol in the past year? Yes How often did you have a drink containing alcohol in the past year? 4 [...] daily (4 points) Points 10 Interpretation Positive Tobacco Use: Social Info Question Answer Notes Tobacco Use/Smoking Patient is a former smoker How long has it been since you last smoked? 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 [employer] Section Notes: 10 cigs QD; 5-6 beers [...] W/U Status Risk Notes Problem Epigastric pain (68671496) Epigastric abdominal pain (R10.13) Active confirmed Problem Screening for malignant neoplasm of colon (672536376) Encounter for screening for malignant neoplasm of colon (Z12.11) Active confirmed Problem Weight loss (551689432) Weight loss (R63.4) Active confirmed Problem Epigastric pain (46399235) Abdominal pain, epigastric (R10.13) Active confirmed Problem Blood in stool (889937171) Blood in stool (K92.1) Active confirmed Problem Gastroesophageal reflux disease (440531998) Gastroesophageal reflux disease, esophagitis presence not specified (K21.9) Active confirmed Problem Gastritis and duodenitis (468930436) Gastritis and duodenitis (K29.90) Active confirmed Problem Right upper quadrant pain (924289860) Abdominal pain, right upper quadrant (R10.11) Active confirmed Problem Right upper quadrant pain (133279926) RUQ abdominal pain (R10.11) Active confirmed Problem Alcoholic fatty liver (32981712) Alcohol induced fatty liver (K70.0) Active confirmed Encounters Encounter Location Date Provider Diagnosis [facility] [address] [place] [address] 01/10/2025 Jeremiah Bowen Plan Of Treatment Pending Test Test Name Order Date CHEM 7 PROFILE 10/09/2016 LIVER PROFILE 10/09/2016 LIVER PROFILE 10/01/2020 AMYLASE 10/01/2020 AMYLASE 10/09/2016 LIPASE 10/09/2016 LIPASE 10/01/2020 CBC w DIFF 10/01/2020 CBC w DIFF [...] Insured Coverage Start Date Coverage End Date [facility] [address] [place], [place] [id number] DANIEL RADHA Self - patient is the insured Medical [...] negative for H. pylori Hypertension Hyperlipidemia Denies [place],DM,CVA,Lung disease,renal dise ase Anxiety Alcohol abuse as below Negative abdominal ultrasoun d, other than probable fatty liver, in July 2015 and in 12/2019 [place] 07/2019-1 stent placed Neg. EGD except for a minimal HH in 02/12 20 Fatty liver disease Screening colonoscopy 10/2020 with a smal l tubular adenoma removed Surgical History Surgery Date(Month/Year)
== END 2025-10-16 10:56 | disposition home or self-care (01) ==
LOC: HO.HGS 10:25
PROVIDERS: PCP Physician Assistant; Visit Provider Surgery
DX: K64.9 Unspecified hemorrhoids (principal)
CPT/HCPCS: 99203